=== PATIENT | female | born 1960 | race Caucasian/White ===

== ENCOUNTER → 2018-03-14 10:07 | Outpatient (POV) | payer MEDICARE, SELFPAY | PROVIDERS: Family Provider Emergency Medicine; PCP Emergency Medicine; Visit Provider Nurse Practitioner Acute Care | DX: Z00.00 Encounter for general adult medical examination without abnormal findings (principal) ==

== ENCOUNTER → 2018-04-05 16:21 | Outpatient (CLI) | payer MEDICARE, MEDICAID, SELFPAY ==
[2018-04-05 16:27] LABS: Adenovirus F 40/41, stool Not Detected (NotDetected); Astrovirus Not Detected (NotDetected); Campylobacter Not Detected (NotDetected); Clostridium Difficile A/B, PCR Not Detected (NotDetected); Cryptosporidium Not Detected (NotDetected); Cyclospora Cayetanesis Not Detected (NotDetected); Entamoeba histolytica Not Detected (NotDetected); Enteroaggregative E coli Not Detected (NotDetected); Enteropathogenic E coli Not Detected (NotDetected); Enterotoxigenic E coli Not Detected (NotDetected); Giardia lamblia Not Detected (NotDetected); Norovirus Not Detected (NotDetected); Plesimonas Shigalloides, PCR Not Detected (NotDetected); Rotavirus A Not Detected (NotDetected); Salmonella, PCR Not Detected (NotDetected); Sapovirus Not Detected (NotDetected); Shiga-like toxin E coli Not Detected (NotDetected); Shigella Enterovasive E coli Not Detected (NotDetected); Vibrio Cholerae Not Detected (NotDetected); Vibrio, PCR Not Detected (NotDetected); Yersinia Entercolitica, PCR Not Detected (NotDetected)
[2018-04-09 05:21] LABS: H. pylori Stool Ag, EIA Negative (Negative)
== END ==
PROVIDERS: Visit Provider Nurse Practitioner Acute Care
DX: R19.7 Diarrhea, unspecified (principal)
CPT/HCPCS: 87338; 87507

== ENCOUNTER → 2018-04-19 10:47 | Outpatient (CLI) | payer MEDICARE, MEDICAID, SELFPAY ==
--- NOTE | 2018-04-19 | US_ITS ---
US Arterial Ankle Brachial Ind History: Current smoker, hyperlipidemia, bilateral rest pain, bilateral claudication ORDERING PHYSICIAN: Andrez Hernanedz MD PATIENT AGE: 58 years TECHNIQUE: Segmental pressures obtained of both right and left leg. These are compared to brachial blood pressure to yield index at each level sampled including summary BERT. The data sheets from the procedure are available in PACS FINDINGS Rest study only performed today No prior studies available for comparison. Blood pressures reported are in millimeters mercury. RIGHT LEG BERT = 1.0. RIGHT LEG TBI=0.8 Brachial BP: 122 Thigh BP: 115 Calf BP: 134 Ankle PT: 129 Ankle DP : 119 Digit =105 LEFT LEG BERT = 1.0 LEFT LEG TBI= 0.8 Brachial BPD: 128 Thigh BP: 144 Calf BP: 138 Ankle PT:130 Ankle DP: 110 Digit = 103 Pulses and waveforms: Normal IMPRESSION: The ABIs and TBIs as reported above are within normal limits. Waveforms and pulses are also unremarkable.
--- NOTE | 2018-04-19 10:49 | NM_ITS ---
CARDIOLITE SPECT MYOCARDIAL PERFUSION SCAN, REST AND STRESS: EXERCISE STRESS [facility] REVIEW QGS EF AND WALL MOTION EVALUATION: QPS - PERFUSION EVALUATION HISTORY: chest pain ..soa DOSE: 10.21 mCi technetium 99m mibi intravenously at rest followed by 32.3 mCi technetium 99m mibi following the intravenous ministration of 0.4 mg of Lexiscan. Resting blood pressure is 121/71. Stress blood pressure 125/74. FINDINGS: Ejection fraction is calculated to be 62%. Stress images reveal decreased activity in the anterior apical wall. Rest images reveal significantly improved activity. Gated images calculated ejection fraction of 62% with normal wall motion. IMPRESSION: Abnormal high risk Myoview with reversible ischemia in the anterior apical wall. Normal ejection fraction and normal wall motion
--- NOTE | 2018-04-19 12:32 | HMH.ITSHM ---
CINDY HANNAH LIPITOR KEVIN CRISOSTOMO
== END ==
PROVIDERS: Family Provider Emergency Medicine; PCP Emergency Medicine; Visit Provider Internal Medicine
DX: I25.118 Atherosclerotic heart disease of native coronary artery with other forms of angina pectoris (principal); I73.9 Peripheral vascular disease, unspecified; M79.604 Pain in right leg; M79.605 Pain in left leg; R07.89 Other chest pain; R06.09 Other forms of dyspnea; F17.200 Nicotine dependence, unspecified, uncomplicated
CPT/HCPCS: 78452; 93017; 93922; A9502; J2785

== ENCOUNTER → 2018-12-12 13:59 | Outpatient (CLI) | payer MEDICARE, MEDICAID, SELFPAY ==
[2018-12-12 14:46] LABS: Alanine Aminotransferase 31 U/L (12-78); Albumin/Globulin Ratio 1.1 (1.1-1.8); Alkaline Phosphatase 120 U/L (46-116); Anion Gap 15.7 mEq/L (5-15); Aspartate Amino Transferase 19 U/L (15-37); Bilirubin,Total 0.3 mg/dL (0.2-1.0); Blood Urea Nitrogen 10 mg/dL (7-18); Carbon Dioxide 25 mmol/L (21.0-32.0); Chloride 101 mmol/L (98-107); Cholesterol 273 mg/dL (140-200); Creatinine,Serum 0.97 mg/dL (0.55-1.02); Estimated Glomerular Filt Rate 59 ml/min (>60); Free T4 (Free Thyroxine) 0.97 ng/dl (0.76-1.46); GFR (African American) 71 ML/MIN (>60); Globulin 3.5 gm/dl (1.3-3.2); Glucose 96 mg/dL (74-106); HDL Cholesterol 39 mg/dL (29-89); LDL Cholesterol 174 mg/dL (0-130); Potassium 3.7 mmoL/L (3.5-5.1); Sodium 138 mmol/L (136-145); Total Protein,Serum 7.5 gm/dL (6.4-8.2); Triglycerides 298 mg/dL (30-200); VLDL Cholesterol 60 mg/dL (0-40)
== END ==
PROVIDERS: Visit Provider Emergency Medicine
DX: I25.10 Atherosclerotic heart disease of native coronary artery without angina pectoris (principal); Z79.899 Other long term (current) drug therapy
CPT/HCPCS: 80053; 80061; 84439; 84443

== ENCOUNTER → 2019-03-21 15:20 | Outpatient (CLI) | payer MEDICARE, MEDICAID, SELFPAY ==
[2019-03-21 17:49] LABS: Anion Gap 17.4 mEq/L (5-15); Blood Urea Nitrogen 9 mg/dL (7-18); Calcium 9.5 mg/dL (8.5-10.1); Carbon Dioxide 27 mmol/L (21.0-32.0); Chloride 102 mmol/L (98-107); Creatinine,Serum 0.97 mg/dL (0.55-1.02); Estimated Glomerular Filt Rate 59 ml/min (>60); GFR (African American) 71 ML/MIN (>60); Glucose 80 mg/dL (74-106); Potassium 4.4 mmoL/L (3.5-5.1); Sodium 142 mmol/L (136-145)
== END ==
PROVIDERS: Visit Provider Physician Assistant
DX: E78.2 Mixed hyperlipidemia (principal); G47.33 Obstructive sleep apnea (adult) (pediatric); I11.9 Hypertensive heart disease without heart failure; I25.118 Atherosclerotic heart disease of native coronary artery with other forms of angina pectoris; I73.9 Peripheral vascular disease, unspecified; J44.9 Chronic obstructive pulmonary disease, unspecified; R06.00 Dyspnea, unspecified; R53.83 Other fatigue; Z72.0 Tobacco use
CPT/HCPCS: 36415; 80048; 83880

== ENCOUNTER → 2019-03-28 15:14 | Outpatient (CLI) | payer MEDICARE, MEDICAID, SELFPAY ==
--- NOTE | 2019-03-28 15:18 | XR_ITS ---
XR chest 2V HISTORY: Chest pain, palpitation ITS.REASON: x ORDERING PHYSICIAN: Saba Dooley APRN PATIENT AGE: 59 years COMPARISON: None FINDINGS: The cardiomediastinal silhouette and pulmonary vascularity are within normal limits. The lungs are clear without infiltrates, suspicious nodules, or pleural effusions. No acute bony abnormalities. Epigastric clips are noted IMPRESSION: No change with no acute finding
== END ==
PROVIDERS: PCP Emergency Medicine; Visit Provider Nurse Practitioner Family
DX: I25.118 Atherosclerotic heart disease of native coronary artery with other forms of angina pectoris (principal); J44.9 Chronic obstructive pulmonary disease, unspecified; R06.02 Shortness of breath; Z72.0 Tobacco use
CPT/HCPCS: 71046

== ENCOUNTER → 2019-04-03 11:04 | Outpatient (CLI) | payer MEDICARE, MEDICAID, SELFPAY ==
--- NOTE | 2019-04-03 11:04 | CA_ITS ---
PROCEDURE: 2-D M-mode and color Doppler study INDICATIONS FOR THE TEST: Chest pain COPD+ Heart Murmur Tobacco Smoking+ Palpitations Fatigue Syncope Edema Hypertension+Diabetes Mellitus Rheumatic Fever SOB+LAMAR Obesity Hyperlipidemia+ Family History HD Additional History CAD, O2 @ NIGHT TDS-OVERLAYING LUNG PATIENT INFORMATION HEIGHT: 62 WEIGHT:175 GENDER: Female B/P:127/75 2-D/M-MODE INTERPRETATION: 2-D MEASUREMENTS OBSERVED VALUES IN CMS Right Ventricular Dimension (RVDd) 2.1 Interventricular Septum (Thickness)(IVsd) 1.1 Left Ventricular Internal Dimensions(LVIDd) 4.6 Left Ventricular Posterior Wall (Thickness)(LVPWd) 0.9 Aortic Root 2.6 Aortic Cusp Separation 1.4 Left Atrial Dimensions (LAD) 3.3 2D 1. Left atrium is mildly enlarged, left ventricle is normal size, mild concentric left ventricular hypertrophy, visually estimated ejection fraction 55% with no regional wall motion abnormality. 2. The right atrium and the ventricular mildly enlarged with normal contractility. 3. The aortic valve is minimally thickened and fibrosed. 4. The mitral and tricuspid valvular grossly normal. 5. The pulmonic valve is poorly visualized. 6. No significant pericardial effusion noted. DOPPLER INTERROGATION: Doppler interrogation of the aortic, mitral and tricuspid valvular presence of mild mitral and tricuspid regurgitation, tricuspid regurgitation jet velocity is inadequate for calculation of the right ventricular systolic pressure, grade 1 diastolic dysfunction seen with tissue Doppler evidence of raised left atrial pressure. Inferior vena cava is mildly dilated without significant inspiratory collapse. CONCLUSION: 1. Mildly enlarged left atrium, normal left ventricular size, mild concentric left ventricular hypertrophy, visually estimated ejection fraction 55% with no regional wall motion abnormality, grade 1 diastolic dysfunction seen with tissue Doppler evidence of raised left atrial pressure. 2. Mildly enlarged right ventricle with normal contractility. 3. Mild mitral and tricuspid regurgitation, tricuspid regurgitation jet velocity is inadequate for calculation of the right ventricular systolic pressure, inferior vena cava is mildly dilated without significant inspiratory collapse. 4. No significant pericardial effusion noted.
[2019-04-03 12:07] VITALS: PULSE 65
[2019-04-03 12:08] VITALS: PULSE 65
== END ==
PROVIDERS: PCP Emergency Medicine; Visit Provider Nurse Practitioner Family
DX: I25.10 Atherosclerotic heart disease of native coronary artery without angina pectoris (principal); R06.02 Shortness of breath
CPT/HCPCS: 93306; 94060; 94640

== ENCOUNTER → 2019-05-22 20:19 | Outpatient (CLI) | payer MEDICARE, MEDICAID, SELFPAY | PROVIDERS: PCP Emergency Medicine; Visit Provider Specialist | DX: G47.30 Sleep apnea, unspecified (principal); I10 Essential (primary) hypertension; R51 Headache; R06.83 Snoring; G47.00 Insomnia, unspecified | CPT/HCPCS: 95810 ==

== ENCOUNTER → 2019-09-01 15:46 | Outpatient (CLI) | payer MEDICARE, MEDICAID, SELFPAY ==
[2019-09-01 18:24] LABS: Alanine Aminotransferase 26 U/L (12-78); Alkaline Phosphatase 100 U/L (46-116); Aspartate Amino Transferase 15 U/L (15-37); Bilirubin,Direct 0.1 mg/dL (0.0-0.2); Bilirubin,Indirect 0.1 mg/dL (0.0-0.9); Bilirubin,Total 0.2 mg/dL (0.2-1.0); Cholesterol 209 mg/dL (140-200); HDL Cholesterol 42 mg/dL (29-89); LDL Cholesterol 120 mg/dL (0-130); Total Protein,Serum 7.2 gm/dL (6.4-8.2); Triglycerides 235 mg/dL (30-200); VLDL Cholesterol 47 mg/dL (0-40)
== END ==
PROVIDERS: Visit Provider Urology
DX: E78.2 Mixed hyperlipidemia (principal); I11.9 Hypertensive heart disease without heart failure; I25.118 Atherosclerotic heart disease of native coronary artery with other forms of angina pectoris
CPT/HCPCS: 36415; 80061; 80076

== ENCOUNTER 2020-04-04 15:42 | Emergency (ER) | payer MEDICARE, MEDICAID, SELFPAY ==
[2020-04-04 16:10] VITALS: BP 117/75; PULSE 94; RESP 18; TEMP 36.9; O2SAT 100; BMI 32.9
--- NOTE | 2020-04-04 16:34 | HMH.EDUTC ---
[place] Disposition Clinical Impression: Gastroenteritis Diarrhea Qualifiers: Diarrhea type: unspecified type Qualified Code(s): R19.7 - Diarrhea, unspecified Disposition: Home, Self-Care Condition on Discharge: Good Instructions: Diarrhea, Viral Gastroenteritis Additional Instructions: Drink plenty of fluids. Take tylenol or ibuprofen for pain or fever. Take the medications as directed. Follow up with your regular doctor. GO TO THE ER FOR ANY WORSENING SYMPTOMS Return a stool sample if your diarrhea continues for the next 24 hours. Prescriptions: Ondansetron [Zofran 4mg ODT] 4 mg PO Q8HP PRN #10 tab.rapdis PRN Reason: Nausea Transmission Status: Received by [facility] Referrals: Dante Santillan MD [Primary Care Provider] - Time of Disposition: 16:36 Medical Decision Making - Medical Records Medical records reviewed: No: I reviewed the patient's medical records. - Marco A Inquiry Pt receiving controlled substance: No Vital Signs: 04/04/20 16:10 04/04/20 16:53 Temperature 98.4 F 98.4 F Temperature Source Oral Pulse Rate 94 H Pulse Rate [Left Radial] 94 H Respiratory Rate 18 18 Blood Pressure 117/76 Blood Pressure [Left Arm] 117/75 Blood Pressure Mean [Left Arm] 89 Blood Pressure Source [Left Arm] Automatic Cuff Blood Pressure Position [Left Arm] Sitting 02 Sat by Pulse Oximetry 100 Oxygen Delivery Method Room Air [place] HPI - General Stated complaint: Nausa and Diarrhea Time Seen by Provider: 04/04/20 16:34 Mode of Arrival: Ambulatory Source of Information: Patient Limitations: No Limitations Description of Symptoms (Recalled from Triage Doc. by RN): PT C/O NAUSEA AND DIARRHEA HEENT Symptoms (Recalled from RN notes): No Resp Symptoms (Recalled from RN notes): No Skin Symptoms (Recalled from RN notes): No MS Symptoms (Recalled from RN notes): No Functional Status (Recalled from RN notes): N/A - History of Present Illness Provider Complaint: She c/o nausea and diarrhea for the past 3 days approx. She denies vomiting, but she states that she has came close. She denies any blood in her stool or diarrhea. - Related Data Home Medications Medication Instructions Recorded Confirmed brimonidine 0.1 % eye drops OPHTHALMIC 01/31/20 02/06/20 Previous Rx's Medication Instructions Recorded nitroglycerin 0.4 mg sublingual 0.4 mg SUBLINGUAL Q5-15M PRN #30 06/06/18 tablet tab albuterol sulfate 90 mcg/actuation 2 puff INHALATION Q4H PRN #8.5 g 09/07/18 aerosol inhaler budesonide-formoterol HFA 160 2 puff INHALATION BID #10.2 g 06/12/19 mcg-4.5 mcg/actuation aerosol inhaler furosemide 40 mg tablet 40 mg PO DAILY #90 tab 07/13/19 atorvastatin 80 mg tablet 80 mg PO QHS #90 tab 09/04/19 benzonatate 100 mg capsule 100 mg PO TID PRN #30 cap 01/31/20 levofloxacin 500 mg tablet 500 mg PO DAILY #7 tab 01/31/20 zolpidem 10 mg tablet 10 mg PO QHS PRN #30 tab 01/31/20 uefiznbpmv-xzwsbespctcak-zirpyexc 1 cap PO Q4H PRN #40 cap 02/02/20 50 mg-300 mg-40 mg capsule hydrocodone 5 mg-acetaminophen 325 1 tab PO BID PRN #45 tab 02/06/20 mg tablet varenicline 0.5 mg (11)-1 mg (42) See Rx Instructions PO PER PKG DIR 02/06/20 tablets in a dose pack #53 tab sertraline 100 mg tablet See Rx Instructions .ROUTE 02/22/20 .COMPLEX #90 tab Ondansetron [Zofran 4mg ODT] 4 mg PO Q8HP PRN #10 tab.rapdis 04/04/20 metoclopramide HCl 10 mg tablet See Rx Instructions .ROUTE 04/04/20 .COMPLEX #90 tab Allergies Allergy/AdvReac Type Severity Reaction Status Date / Time No Known Allergies Allergy Verified 02/06/20 13:48 - Worker's Comp Is this a Worker's Comp case?: No [facility] History - Hepatitis A Screen Drug use history?: No High risk sexual behaviors?: No History of sexually transmitted infection?: No Currently employed?: No Childcare worker?: No Do you have indoor plumbing?: Yes Do you have electricity?: Yes Attestation statement:: This patient
[2020-04-04 16:53] VITALS: BP 117/76; PULSE 94; RESP 18; TEMP 36.9; O2SAT 100
== END 2020-04-04 16:53 | disposition home or self-care (01) ==
PROVIDERS: Emergency Provider Nurse Practitioner Family; PCP Emergency Medicine
DX: K52.9 Noninfective gastroenteritis and colitis, unspecified (principal); J44.9 Chronic obstructive pulmonary disease, unspecified; I25.10 Atherosclerotic heart disease of native coronary artery without angina pectoris; K21.9 Gastro-esophageal reflux disease without esophagitis; I10 Essential (primary) hypertension; E78.5 Hyperlipidemia, unspecified; Z79.899 Other long term (current) drug therapy; F17.210 Nicotine dependence, cigarettes, uncomplicated; Z90.49 Acquired absence of other specified parts of digestive tract; Z90.79 Acquired absence of other genital organ(s)
CPT/HCPCS: G0463; 99201

== ENCOUNTER → 2020-05-06 16:47 | Outpatient (CLI) | payer MEDICARE, MEDICAID, SELFPAY ==
--- NOTE | 2020-05-06 16:47 | MM_ITS ---
PROCEDURE: MM DIG SCREENING MAMM BI W/CAD Digital Breast Tomosynthesis Included CLINICAL INDICATION: screening There is no personal or family history of breast cancer. COMPARISON: [facility] DIG MAMM-SCREEN JASS from 02/22/2015 [facility] DIG MAMM-SCREEN JASS from 06/01/2016 [facility] DIG MAMM-SCREEN JASS W/CAD from 06/09/2017 TECHNIQUE: Standard CC and MLO images and 3D Tomosynthesis was obtained. R2 CAD reviewed. FINDINGS: The breasts are composed primarily of fat with minimal scattered fibroglandular densities in each breast. Findings of bilateral and symmetrical. There is no suspicious lesion in either breast and no suspicious microcalcifications. IMPRESSION: Fatty type breast parenchyma with no suspicious lesions seen BI-RAD Category: 1 Negative FOLLOW-UP: 1YR 1 Year Follow-up (A letter has been sent to the patient regarding results of the study.) Dictated by: Dr. Geovanni Carrillo MD 05/08/2020 11:[address] Geovanni Carrillo MD in [place] 05/08/2020 11:22
== END ==
PROVIDERS: PCP Emergency Medicine; Visit Provider Emergency Medicine
DX: Z12.31 Encounter for screening mammogram for malignant neoplasm of breast (principal)
CPT/HCPCS: 77063; 77067

== ENCOUNTER → 2020-07-03 12:33 | Outpatient (CLI) | payer MEDICARE, MEDICAID, SELFPAY ==
--- NOTE | 2020-07-03 12:36 | XR_ITS ---
PROCEDURE: XR CHEST 2V CLINICAL HISTORY: dyspnea Smoker COMPARISON: CR CXR CHEST(2 VIEWS-NOT PORTABLE) from 12/21/2014 CR CXR CHEST(2 VIEWS-NOT PORTABLE) from 12/27/2014 CR CXR CHEST(2 VIEWS-NOT PORTABLE) from 06/09/2017 FINDINGS: The cardiomediastinal silhouette and pulmonary vascularity are within normal limits. The lungs are clear without infiltrates, suspicious nodules, or pleural effusions. No acute bony abnormalities. IMPRESSION: No acute findings. Dictated b George Ledesma MD 07/03/2020 13:34 George Ledesma MD in [place] 07/03/2020 13:34
[2020-07-03 12:46] LABS: Microscopic, Urine URINE MICROSCOPIC (MICROSCOPIC)
[2020-07-03 13:01] LABS: Appearance,Urine CLEAR (Clear); Basophils # 0.1 K/mm3 (0-0.2); Basophils % 0.9 % (0.1-2.0); Bilirubin,Urine Negative (Negative); Blood, Urine Negative (Negative); Color,Urine YELLOW (Yellow); Eosinophils # 0.2 K/mm3 (0.0-0.4); Eosinophils % 2.4 % (0.1-12.0); Glucose,Urine (UA) Negative (Negative); Hematocrit 41.5 % (37.0-47.0); Hemoglobin 14.4 g/dL (12.2-16.2); Ketones,Urine Negative (Negative); Leukocyte Esterase,Urine Negative (Negative); Lymphocytes # 2.7 K/mm3 (0.7-4.5); Lymphocytes % 29.7 % (10-50); Mean Corpuscular HGB Conc 34.7 g/dL (31.8-35.4); Mean Corpuscular Volume 83.5 fl (81-99); Mean Platelet Volume 7.5 fl (7.4-10.4); Monocytes # 0.5 K/mm3 (0.1-1.0); Monocytes % 5.1 % (1.7-9.3); Neutrophils # 5.6 K/mm3 (1.8-7.8); Nitrate,Urine Negative (Negative); PH,Urine 6.5 (5.0-8.5); Platelet Count 348 K/mm3 (142-424); Protein,Urine Negative (Negative); Red Blood Count 4.97 M/mm3 (4.20-5.40); Red Cell Distribution Width 14.4 % (11.5-17.5); Urobilinogen,Urine 0.2 EU/dl (0.2); White Blood Count 9.1 K/mm3 (4.8-10.8)
[2020-07-03 13:17] LABS: Bacteria,Urine Trace /lpf
[2020-07-03 13:33] LABS: Chloride 104 mmol/L (98-107); Sodium 140 mmol/L (136-145)
[2020-07-03 13:34] LABS: Potassium 4.8 mmoL/L (3.5-5.1)
[2020-07-03 13:36] LABS: Alanine Aminotransferase 26 U/L (12-78); Albumin Level 4.1 g/dl (3.5-5.0); Alkaline Phosphatase 90 U/L (38-126); Anion Gap 12.8 mEq/L (5-15); Aspartate Amino Transferase 25 U/L (14-36); Bilirubin,Direct 0.1 mg/dl (0.0-0.4); Bilirubin,Indirect 0.3 mg/dL (0.0-0.9); Bilirubin,Total 0.4 mg/dl (0.2-1.3); Bilirubin,Unconjugated 0.3 mg/dL (0.0-1.1); Blood Urea Nitrogen 12 mg/dl (7-17); Calcium 9.7 mg/dl (8.4-10.2); Carbon Dioxide 28 mmol/L (22.0-30.0); Cholesterol 152 mg/dl (140-200); Estimated Glomerular Filt Rate 73 ml/min (>60); GFR (African American) 88 ML/MIN (>60); Glucose 106 mg/dl (74-100); Total Protein,Serum 6.7 g/dl (6.3-8.2); Triglycerides 240 mg/dl (30-150); VLDL Cholesterol 48 mg/dL (0-40)
[2020-07-03 13:46] LABS: NT Pro Brain Natriuretic Pep. 101 pg/mL (0-125)
[2020-07-03 13:48] LABS: Direct LDL Cholesterol 84.22 mg/dL (100-129)
[2020-07-03 13:53] LABS: Free T4 (Free Thyroxine) 0.71 ng/dl (0.78-2.19)
[2020-07-03 14:08] LABS: Thyroid Stimulating Hormone 3.29 uIU/mL (0.465-4.68)
[2020-07-03 19:53] LABS: Chol/HDL Ratio 3.2 (1-3.5); HDL Cholesterol 48 mg/dl (40-60)
== END ==
PROVIDERS: PCP Emergency Medicine; Visit Provider Internal Medicine
DX: E78.2 Mixed hyperlipidemia (principal); G47.33 Obstructive sleep apnea (adult) (pediatric); I11.9 Hypertensive heart disease without heart failure; I25.118 Atherosclerotic heart disease of native coronary artery with other forms of angina pectoris; I73.9 Peripheral vascular disease, unspecified; J44.9 Chronic obstructive pulmonary disease, unspecified; R06.00 Dyspnea, unspecified; R09.89 Other specified symptoms and signs involving the circulatory and respiratory systems; R10.9 Unspecified abdominal pain; R19.00 Intra-abdominal and pelvic swelling, mass and lump, unspecified site; R53.83 Other fatigue; R60.0 Localized edema; Z72.0 Tobacco use
CPT/HCPCS: 36415; 71046; 80048; 80061; 80076; 81001; 83880; 84439; 84443; 85025

== ENCOUNTER → 2020-07-09 07:50 | Outpatient (CLI) | payer MEDICARE, MEDICAID, SELFPAY ==
--- NOTE | 2020-07-09 07:51 | CA_ITS ---
APPROVED REPORT EXAM: Comprehensive 2D, Doppler, and color-flow Echocardiogram Relief Driller: Tiny Kirby CRT Ht: 5 ft 2 in Wt: 190lbs BSA: 1.87 BP: 148/71 mmHg Indications: COPD, Hyperlipidemia, Hypertension/HDD, BERTRAM, PAD, Smoker, BERTRAM 2D Dimensions LVOT 1.50 cm (M/F) 1.5-2.5 M-Mode Dimensions RVDd 1.89 cm (0.9-2.6) LVDd 5.27 cm (3.5-5.7) LVDs 3.77 cm (3.5-5.7) IVSd 1.10 cm (0.6-1.1) PWd 0.53 cm (0.6-1.1) EF (Teich) 54.50% FS 28.50% EDV (Teich) 133.60 mL ESV (Teich) 60.80 mL LV Diastology E/A Ratio 0.70 Mitral Valve MV A Velocity 84.00 (40-130 cm/s) Left Ventricle Left atrium is mildly enlarged, left ventricle is normal size, mild concentric left ventricular hypertrophy, visually estimated ejection fraction 55% with no regional wall motion abnormality, grade 1 diastolic dysfunction seen without tissue Doppler evidence of raise left atrial pressure. Right Ventricle Right atrium and left ventricle are mildly enlarged with normal contractility. Aortic Valve Aortic valve is minimally thickened, there is no aortic stenosis or aortic insufficiency. Mitral Valve Mitral valve is grossly normal. There is mild mitral regurgitation. Tricuspid Valve Tricuspid valve is grossly normal, there is mild tricuspid regurgitation, calculated right ventricular systolic pressure is 37 mmHg. Pulmonic Valve Pulmonic valve is poorly visualized. Great Vessels Aortic root is normal size. Pericardium No significant pericardial effusion noted Conclusion 1. Mild biatrial enlargement, normal left ventricular size, mild concentric left ventricular hypertrophy, visually estimated ejection fraction 55% with no regional wall motion abnormality, grade 1 diastolic dysfunction seen without tissue Doppler evidence of raise left atrial pressure. 2. Mildly enlarged right ventricle with normal contractility. 3. Mild mitral and tricuspid regurgitation, calculated right ventricular systolic pressure is 37 mmHg. 4. No significant pericardial effusion noted. Electronically signed by : Cj Mathews, 07/10/2020 05:55:37
--- NOTE | 2020-07-09 08:34 | US_ITS ---
PROCEDURE: US ABDOMEN COMPLETE CLINICAL INDICATION: abd pain/swelling COMPARISON: No exams were available for comparison FINDINGS: PANCREAS: Unremarkable. No obvious mass or abnormal fluid collection. No ductal dilatation, portions of the body and tail are obscured by bowel gas. LIVER: No focal liver lesions demonstrated. There is overall increased and somewhat coarsened appearing echogenicity consistent with diffuse fatty infiltration.. No intrahepatic biliary ductal dilatation evident. There is appropriate direction of blood flow within a non dilated portal vein RIGHT KIDNEY: Unremarkable. Normal size and echogenicity. No hydronephrosis LEFT KIDNEY: Unremarkable. Normal size and echogenicity. No hydronephrosis GALLBLADDER: Post cholecystectomy, the common bile duct measures 7 mm. AORTA: No evidence of aneurysmal dilatation. SPLEEN: Unremarkable. Normal size and echogenicity ASCITES: None demonstrated. IMPRESSION: Diffuse hepatic steatosis, portions of the pancreas poorly seen, no other abnormality noted post cholecystectomy Dictated by: Dr. Geovanni Carrillo MD 07/09/2020 14:04 Dr. Geovanni Carrillo MD in [place] 07/09/2020 14:04
== END ==
PROVIDERS: PCP Emergency Medicine; Visit Provider Internal Medicine
DX: E78.2 Mixed hyperlipidemia (principal); G47.33 Obstructive sleep apnea (adult) (pediatric); I11.9 Hypertensive heart disease without heart failure; I25.118 Atherosclerotic heart disease of native coronary artery with other forms of angina pectoris; I73.9 Peripheral vascular disease, unspecified; J44.9 Chronic obstructive pulmonary disease, unspecified; R06.00 Dyspnea, unspecified; R09.89 Other specified symptoms and signs involving the circulatory and respiratory systems; R10.9 Unspecified abdominal pain; R19.00 Intra-abdominal and pelvic swelling, mass and lump, unspecified site; R53.83 Other fatigue; R60.0 Localized edema; Z72.0 Tobacco use
CPT/HCPCS: 76700; 93306; 94060; 94726; 94729

== ENCOUNTER 2020-07-16 09:35 | Day surgery (SDC) | payer MEDICARE, MEDICAID, SELFPAY ==
[2020-07-16] VITALS (12 sets, daily range): BP systolic 111–145; BP diastolic 63–87; PULSE 60–82; RESP 16–20; TEMP 36.5–36.6; O2SAT 82–99; BMI 34.2
[2020-07-16 10:05] LABS: Basophils # 0.1 K/mm3 (0-0.2); Basophils % 0.8 % (0.1-2.0); Eosinophils # 0.3 K/mm3 (0.0-0.4); Eosinophils % 2.4 % (0.1-12.0); Hemoglobin 14.5 g/dL (12.2-16.2); Lymphocytes # 3.4 K/mm3 (0.7-4.5); Lymphocytes % 26.9 % (10-50); Mean Corpuscular HGB Conc 34.5 g/dL (31.8-35.4); Mean Corpuscular Hemoglobin 29.1 pg (27.0-31.2); Mean Corpuscular Volume 84.2 fl (81-99); Mean Platelet Volume 7.3 fl (7.4-10.4); Monocytes # 0.6 K/mm3 (0.1-1.0); Monocytes % 4.7 % (1.7-9.3); Neutrophils # 8.3 K/mm3 (1.8-7.8); Neutrophils % 65.3 % (37.0-80.0); Platelet Count 400 K/mm3 (142-424); Red Blood Count 4.99 M/mm3 (4.20-5.40); Red Cell Distribution Width 14.4 % (11.5-17.5); White Blood Count 12.7 K/mm3 (4.8-10.8)
[2020-07-16 10:09] LABS: Chloride 104 mmol/L (98-107); Potassium 4.1 mmoL/L (3.5-5.1); Sodium 138 mmol/L (136-145)
[2020-07-16 10:12] LABS: Anion Gap 12.1 mEq/L (5-15); Blood Urea Nitrogen 12 mg/dl (7-17); Calcium 9.4 mg/dl (8.4-10.2); Carbon Dioxide 26 mmol/L (22.0-30.0); Creatinine Clearance Estimated 78 mL/min (50-200); Estimated Glomerular Filt Rate 73 ml/min (>60); GFR (African American) 88 ML/MIN (>60); Glucose 114 mg/dl (74-100)
[2020-07-16 10:50] LABS: Coronavirus 19 IgG Antibody Positive (Negative); Coronavirus 19 IgM Antibody Positive (Negative)
--- NOTE | 2020-07-16 11:00 | IR_ITS ---
APPROVED REPORT Patient Location: Outpatient PROCEDURES Right heart catheterization left heart catheterization Left ventriculogram Selective coronary angiogram Drug-eluting stent deployment to the proximal mid and distal right coronary artery in a contiguous manner using 4 overlapping drug-eluting stents INDICATION Angina pectoris, Class III-IV congestive heart failure, Pulmonary hypertension, Coronary artery disease Informed consent was obtained prior to the procedure. COMPLICATIONS none Estimated Blood Loss: less than 10 mls TECHNIQUE One percent lidocaine was used to anesthetize the right anterior aspect of the right wrist. The right radial artery was accessed via the Seldinger technique and a 6 Greek hydrophilic sheath was placed in the right radial artery. Following this one percent lidocaine was used to anesthetize the right anterior aspect of the right neck. The right internal jugular vein was accessed via the Seldinger technique and a 7 Greek sheath was placed in the right internal jugular vein. Following this an arterial cocktail was administered using 5000U heparin, 2.5 mg verapamil, 1mg Lidocaine and 800mcg nitroglycerin into the right radial sheath. A trap catheter was used to perform left heart catheterization left ventriculogram and selective coronary angiography while a Pacific-Sebastian catheter was used to perform right heart catheterization. Saturations were obtained in the pulmonary artery and right atrium. At the end of the diagnostic angiogram therapeutic heparin was administered giving a therapeutic ACT. And I Janee right guide catheter was used to intubate the right coronary artery and a Choice PT wire was placed distally. A 4 mm x 18 mm resolute wallcae stent was deployed at 18 star reducing the stenosis. Proximal to this was an edge stenosis as well as a distal stenosis which were both angiographically unacceptable. Because there was diffuse moderate disease throughout the right coronary artery I felt as though it would be impossible to get a landing zone from normal to normal therefore a 4 mm x 38 mm resolute wallace stent was placed distal to the first stent yet still overlapping it and deployed at 14 star. After deploying this the angiographic results were also unsatisfactory distally. The stent landed right at a moderate atheromatous plaque which would increase the likelihood for head stenosis. Because of this a 4 mm x 26 mm resolute wallace stent was then placed distal to the stent and deployed at 14 star. Proximally there were 2 additional stenoses in the very proximal segment of the right coronary artery and which a 4 mm x 12 mm resolute wallace drug-eluting stent was deployed in at 20 star reducing the stenosis to 0%. All stents were overlapping in a contiguous manner. At the end of the procedure there was excellent patency of the right coronary artery with excellent SHABBIR-3 flow down the vessel before and after the procedure with no encroachment upon any of the side branches. At the end of the procedure the apparatus was removed the sheath was removed good hemostasis was achieved using TR banding patient was transferred to the postop holding area stable condition ANGIOGRAPHIC RESULTS The left main artery Normal The left anterior descending artery Is proximally normal and then has 30% mid vessel stenosis with mild diffuse 20% stenoses throughout its tortuous moderate and distal course The circumflex artery Is nondominant and has proximal 20% stenosis with luminal irregularities of 10% throughout its entire course The right coronary artery Is a large dominant vessel and has a proximal eccentric at least 70% stenosis followed by additional 40 to 50% mid vessel stenoses followed by an additional 40
--- NOTE | 2020-07-16 11:20 | SUR.PHASEII ---
notified primary MD of results of covid testing results
[2020-07-16 12:00] LABS: CATHL Arterial O2 SAT 70 % (90-100); CATHL Venous O2 SAT 68 % (75-80)
[2020-07-16 12:01] LABS: CATHL Activated Clotting Time 293 SEC (74-125)
[2020-07-16 12:02] LABS: CATHL Activated Clotting Time 395 SEC (74-125)
--- NOTE | 2020-07-16 15:18 | HMH.PHACLD ---
No Coelho has received discharge medication counseling on the following medications: BRILINTA 90 MG BID, ASPIRIN 81 MG DAILY, ATORVASTATIN 40 MG HS, RAMIPRIL 2.5 MG DAILY, AND BISOPROLOL 5 MG DAILY.
[2020-07-18 16:11] LABS: Covid-19 Nasal PCR Sendout Lex NOT DETECTED
== END 2020-07-16 15:56 | disposition home or self-care (01) ==
LOC: CATHLAB 09:36
PROVIDERS: PCP Emergency Medicine; Visit Provider Internal Medicine
DX: E78.2 Mixed hyperlipidemia (principal); G47.33 Obstructive sleep apnea (adult) (pediatric); I11.9 Hypertensive heart disease without heart failure; I25.118 Atherosclerotic heart disease of native coronary artery with other forms of angina pectoris; I27.20 Pulmonary hypertension, unspecified; J44.9 Chronic obstructive pulmonary disease, unspecified; Z72.0 Tobacco use; I70.203 Unspecified atherosclerosis of native arteries of extremities, bilateral legs; Z79.899 Other long term (current) drug therapy
CPT/HCPCS: 80048; 82810; 85025; 85347; 86328; 92928; 93460; 99152; 99153; C1725; C1769; C1876; C1894; C9600; J1644; Q9967; U0004

== ENCOUNTER → 2020-08-06 14:04 | Outpatient (CLI) | payer MEDICARE, MEDICAID, SELFPAY ==
--- NOTE | 2020-08-06 14:04 | CT_ITS ---
PROCEDURE: CT SOFT TISSUE NECK W CON CLINICAL HISTORY: poss left parotid tumor sore throat x 2-3 months ? left parotid tumor no palpable areas 75ml optiray 350 no prior COMPARISON: No exams were available for comparison TECHNIQUE: Oral Contrast: None IV Contrast: None Axial images obtained with sagittal and coronal reformats. All CT scans at the facility use one or more dose reduction, viz: automated exposure control, ma/kV adjustment per patient size (including targeted exams where dose is matched to indication, i.e. head), or iterative reconstruction technique. FINDINGS: There is a slightly hyperdense nodule within the superficial lobe of the parotid gland on the left inferiorly. This measures 12 by 10 mm. No internal calcifications are evident. This is somewhat kidney-shaped.. No other significant anomalies are evident. There is some unusual enhancement along the inferior aspect of the left lateral pterygoid muscle versus calcification.. No dominant cervical adenopathy. The thyroid gland has an unremarkable appearance. The nasopharynx, oropharynx and hypopharynx as well as the glottic region have an unremarkable appearance. There are centrilobular and paraseptal emphysematous changes in the lung apices. There is mild degenerative disc disease at C5-C6 and C6-C7 IMPRESSION: 1. 12 mm well circumscribed slightly hyperdense nodule in the lower portion of the superficial lobe of the left parotid gland. Differential diagnosis would include pleomorphic adenoma or intraparotid lymph node. Ultrasound-guided FNA could be performed if clinically desired. 2. Increased density in the left lateral pterygoid muscle along the muscle plane and could be due to some atypical enhancement or calcification. 3. Centrilobular/paraseptal emphysema in the lung apices Dictated by: George Ledesma MD 08/07/2020 12:18 George Ledesma MD in [place] 08/07/2020 12:18
[2020-08-06 14:31] LABS: Blood Urea Nitrogen 12 mg/dl (7-17); Estimated Glomerular Filt Rate 56 ml/min (>60); GFR (African American) 68 ML/MIN (>60)
== END ==
PROVIDERS: PCP Emergency Medicine; Visit Provider Otolaryngology
DX: R59.1 Generalized enlarged lymph nodes (principal)
CPT/HCPCS: 36415; 70491; 82565; 84520; Q9967

== ENCOUNTER → 2021-01-24 12:37 | Outpatient (CLI) | payer MEDICARE, MEDICAID, SELFPAY ==
[2021-01-24 13:54] LABS: Coronavirus 19 IgG Antibody Negative (Negative); Coronavirus 19 IgM Antibody Negative (Negative)
== END ==
PROVIDERS: Visit Provider Internal Medicine Gastroenterology
DX: Z01.818 Encounter for other preprocedural examination (principal); Z11.52 Encounter for screening for COVID-19; Z13.810 Encounter for screening for upper gastrointestinal disorder
CPT/HCPCS: 36415; 86328

== ENCOUNTER 2021-01-27 07:33 | Day surgery (SDC) | payer MEDICARE, MEDICAID, SELFPAY ==
[2021-01-21 10:34] VITALS: BMI 33.5
[2021-01-27 07:51] VITALS: BP 115/60; PULSE 56; RESP 18; TEMP 36.4; O2SAT 94
[2021-01-27 08:27] VITALS: O2SAT 97
--- NOTE | 2021-01-27 08:28 | HMH.ANESCL ---
[facility] Anesthesia Checklist - Patient Identification Patient Identification: Arm Band - Structural Data Admitted From: Home Planned Operative Procedure/s: egd Consent for Planned Operative Procedure(s) Verified: Yes Verified Documents: Surgical Consent, History and Physical - NPO Status Verified Time NPO: 00:00 - Additional verifications Anesthesia Reactions: No - Airway Assessment C-Spine Mobility Assessed: Yes (mp2) TMJ Mobility Assessed: Yes Dentition: Edentulous - Neurological Assessment Level of Consciousness: Awake, Alert - Anesthesia Plan Anesthesia Risk discussed: Yes Anesthesia Plan: Verified ASA Class: III Anesthesia Type: MAC [facility] History I have reviewed the patient's past medical history: Yes Medical History: Reports:: Aneurysm, Anxiety, Chronic Obstructive Pulmonary Disease (COPD), Coronary Artery Disease, Depression, Gastroesophageal Reflux Disease(GERD), Hyperlipidemia, Hypertension, Lung Disease, Migraine, Peripheral Artery Disease Denies:: Cancer, Diabetes Mellitus Type 1, Diabetes Mellitus Type 2, Internal Pacemaker, MRSA, Seizures *Have you ever received a pneumonia vaccine?: No *Have you received a flu vaccine this season?: Yes Other Medical History: Reports: Glaucoma Anesthesia experience/problems:: nac Other Surgeries: Yes: Cardiac Catheterization, Cholecystectomy, Colonoscopy, Coronary Stent, EGD (2018), Hysterectomy-Total, Hysterectomy-Partial, Tubal Ligation, Other. No: Pacemaker Amputation: No Fractures: No - *Social History Smoking Status: Current every day smoker Tobacco Type: cigarettes # Packs/Day (cigarettes): 1 #Yrs smoked (if former smoker): 40 Alcohol Intake: never Alcohol Intake Frequency:: holidays/special occasions only Substance Use Type: denies use *Occupational Status:: disabled Housing: house *Travel in the last 8 weeks: None - Psychiatric History Pschychiatric History:: Reports:: Anxiety, Depression Family Hx:: Coronary Artery Disease, Heart Attack
--- NOTE | 2021-01-27 08:30 | HMH.PROC ---
[facility] Procedure Note Procedure Note:: Upper Endoscopy Procedure Report: Esophagogastroduodenoscopy with cold biopsies and TTS balloon dilation Endoscopost: Jeff Ferreira II, MD Referring Physician: Dante Santillan MD/Jean-Paul Blair MD Date of Procedure: January 27, 2021 Equipment: Olympus GIF 180 standard upper endoscope Sedation: MAC sedation Indications: Mrs. Coelho is a 60-year-old female with longstanding dyspepsia. She did have panendoscopy with me in October 2018. At that time, she had epigastric abdominal pain and felt the need to belch. She also has had obstipation with incomplete defecation. She has alternating irritable bowel syndrome. The patient does have ongoing symptoms of epigastric pain. In June 2020 she had an ultrasound of the abdomen and blood work. Her ultrasound showed a fatty liver. She had previously undergone cholecystectomy. Her biliary system was normal with CBD diameter of 7 mm. She does have daily epigastric pain and discomfort with marked bloating, nausea and early satiety. She has intermittent dysphagia to both solids and liquids. She often has bowel irregularity. She will go 2 to 3 days without a bowel movement and then have watery bowel movements for a week. She takes Reglan and Zoloft. Procedure: Prior to the procedure, a history and physical exam was performed, and patient's medications and allergies were reviewed. The risks, benefits and alternatives of the sedation and procedure were discussed with the patient. All questions were answered and informed consent was obtained. The patient was brought to the procedure room. Patient identification and proposed procedure were verified by the physician and the nurse. The patient was placed in a left lateral decubitus position and the scope was passed under direct vision. Throughout the procedure, the patient's blood pressure, pulse, and oxygen saturations were monitored continuously. The upper GI endoscopy was accomplished without difficulty. The patient tolerated the procedure well. Findings: The scope was passed directly into the upper esophagus and advanced to the third portion of the duodenum. The post bulbar duodenum and duodenal bulb were normal with normal mucosa and conniventes. The scope was withdrawn through a normal duodenal bulb and pylorus into the stomach. There was moderate linear reactive gastropathy with erosion and a small amount of coffee-ground. This was consistent with reactive gastropathy and possible NSAID gastropathy. The remainder of the fundus of the stomach were grossly normal. Upon retroflexion there was a very small sliding 1 to 2 cm hiatal hernia. 2 biopsies were taken in the antrum and along the lesser curvature for histology to rule out gastritis and/or H pylori. The scope was then withdrawn into the esophagus. There was a serrated Z-line and biopsies were taken at the GE junction. There was no evidence of reflux esophagitis or Schatzki's ring. There were tertiary contractions and evidence of moderate esophageal dysmotility. The entire esophagus was dilated to 60 Syri[place]/20 mm with a TTS hydrostatic balloon. There was some resistance at the cricopharyngeus. The remainder of the esophageal mucosa was normal. Impression: 1. Cricopharyngeal spasm status post dilation to 20 mm 2. Nonerosive GERD with moderate esophageal dysmotility and very small sliding 1 to 2 cm hiatal hernia 3. Moderate erosive linear reactive gastropathy Plan: I will follow-up the biopsies. We will discuss additional treatment options of her dyspepsia. I would recommend continuation of the FDgard and Gas-X. I would also recommend PPI therapy and possibly treatment for visceral sensitivity. I would encourage completion of the sucrose C 13 breath testing.
[2021-01-27 08:42] VITALS: BP 77/43; PULSE 58; RESP 18; TEMP 36.6; O2SAT 93
[2021-01-27 08:52] VITALS: BP 89/54; PULSE 51; RESP 18; O2SAT 94
[2021-01-27 09:02] VITALS: BP 117/67; PULSE 56; RESP 18; O2SAT 95
[2021-01-27 09:30] VITALS: BP 115/69; PULSE 57; RESP 18; O2SAT 95
== END 2021-01-27 09:31 | disposition home or self-care (01) ==
LOC: OUTP 07:35
PROVIDERS: PCP Emergency Medicine; Visit Provider Internal Medicine Gastroenterology
PROC: 0DJ08ZZ Inspection of Upper Intestinal Tract, Via Natural or Artificial Opening Endoscopic (ICD-10-PCS; CPT 43235; principal; 2021-01-27 08:30)
DX: K76.0 Fatty (change of) liver, not elsewhere classified (principal); K58.2 Mixed irritable bowel syndrome; Z79.899 Other long term (current) drug therapy; J39.2 Other diseases of pharynx; K21.9 Gastro-esophageal reflux disease without esophagitis; K22.4 Dyskinesia of esophagus; K44.9 Diaphragmatic hernia without obstruction or gangrene; K31.9 Disease of stomach and duodenum, unspecified; J44.9 Chronic obstructive pulmonary disease, unspecified; I25.10 Atherosclerotic heart disease of native coronary artery without angina pectoris; I10 Essential (primary) hypertension; E78.5 Hyperlipidemia, unspecified
CPT/HCPCS: 43239; 43249; 88305; C1726

== ENCOUNTER 2021-01-28 16:48 | Observation (INO) | payer MEDICARE, MEDICAID, SELFPAY ==
[2021-01-28 17:01] VITALS: BP 93/40; PULSE 74; RESP 18; TEMP 36.9; O2SAT 98; BMI 33.8
--- NOTE | 2021-01-28 17:35 | HMH.EDGENADL ---
ED Disposition Clinical Impression: Decreased oral intake GI bleed Qualifiers: GI bleed type/associated pathology: melena Qualified Code(s): K92.1 - Melena Disposition: Admitted as Observation Condition on Discharge: Fair Referrals: Dante Santillan MD [Primary Care Provider] - Time of Disposition: 19:01 - Critical Care Critical Care Time: No Attestation: On 01/28/21, the high probability of a clinically significant, sudden or life threatening deterioration of the following system(s) required my full and direct attention, intervention and personal management. The time I documented below is in addition to time spent performing reported procedures but includes the following listed in this critical care notation. Medical Decision Making - Medical Records Medical records reviewed: Yes: I reviewed the patient's medical records. - Marco A Inquiry Pt receiving controlled substance: No Vital Signs: 01/28/21 17:01 Temperature 98.5 F Temperature Source Oral Pulse Rate [Left Radial] 74 Respiratory Rate 18 Blood Pressure [Left Arm] 93/40 L Blood Pressure Mean [Left Arm] 57 Blood Pressure Source [Left Arm] Automatic Cuff Blood Pressure Position [Left Arm] Sitting 02 Sat by Pulse Oximetry 98 Oxygen Delivery Method Room Air - Lab Data Lab Results 01/28/21 17:30: WBC 9.0, RBC 4.09 L, Hgb 11.7 L, Hct 35.5 L, MCV 86.8, MCH 28.5, MCHC 32.8, RDW 14.5, Plt Count 368, MPV 7.5, Neut % (Auto) 63.0, Lymph % (Auto) 29.2, [place] % (Auto) 4.8, Eos % (Auto) 2.2, Baso % (Auto) 0.8, Neut # (Auto) 5.7, Lymph # (Auto) 2.6, [place] # (Auto) 0.4, Eos # (Auto) 0.2, Baso # (Auto) 0.1 01/28/21 17:30: Sodium 138, Potassium 4.6, Chloride 108 H, Carbon Dioxide 27, Anion Gap 7.6, BUN 18 H, Creatinine 1.00, Estimated GFR 56 L, Est GFR ( Amer) 68, Glucose 117 H, Calcium 9.0, Total Bilirubin 0.3, AST 26, ALT 17, Alkaline Phosphatase 68, Troponin I < 0.01, Total Protein 6.7, Albumin 3.8, Globulin 2.9, Albumin/Globulin Ratio 1.3, Lipase 131 01/28/21 17:50: Lactate 1.2 Result diagrams: 01/28/21 17:30 01/28/21 17:30 Orders (Tests/Meds): ED MEDICATIONS Generic Name Dose Route Start Last Admin Trade Name Freq PRN Reason Stop Dose Admin Sodium Chloride 1,000 mls @ 999 mls/hr 01/28/21 17:45 01/28/21 17:51 Sod Chlor 0.9% 1000ml Bag IV 01/28/21 18:45 999 mls/hr .Q1H1M ALEE Administration Sodium Chloride 10 ml 01/28/21 17:33 Sodium Chloride 0.9% 10ml Vial IV 02/27/21 17:32 NEEDED PRN dilute protonix Discontinued Medications Generic Name Dose Route Start Last Admin Trade Name Freq PRN Reason Stop Dose Admin Pantoprazole Sodium 40 mg 01/28/21 17:33 01/28/21 17:50 Pantoprazole 40mg Vial IV 01/28/21 17:34 40 mg ONCE ONE Administration ORDERS Category Date Time Status Type and Screen Stat BBK 01/28/21 17:50 Received Full Resp Panel w/COVID ([facility]) Routine Lab 01/28/21 18:12 Ordered Troponin I Q3H Lab 01/28/21 20:45 Ordered Troponin I Q3H Lab 01/28/21 23:45 Ordered EKG Request [ECG Request by /Delia] Stat Y 01/28/21 17:34 Ordered Medical Decision Narrative: In summary this is a 60-year-old female presenting to the emergency department with epigastric pain and dark tarry stools after upper endoscopy. Patient clinically stable on arrival. Vital signs are within normal limits. Most likely diagnosis is persistent GI bleed from EGD biopsies. Will obtain CBC, CMP, lipase, lactic acid, type and screen. Patient given 40 mg IV Protonix. Initial laboratory results are reassuring. Hemoglobin 11.7. BUN only slightly elevated at 18. No renal insufficiency. No other abnormalities. On reassessment patient continues to feel generally unwell. Does not think she can eat or drink at this time. Family more comfortable with plan for admission and observation tonight. She will be admitted to Dr. Rodríguez. General Adult HPI - General Stated complaint: Complications from Procedure on 01-27-21 T
[2021-01-28 17:50] LABS: Basophils # 0.1 K/mm3 (0-0.2); Basophils % 0.8 % (0.1-2.0); Eosinophils # 0.2 K/mm3 (0.0-0.4); Eosinophils % 2.2 % (0.1-12.0); Hematocrit 35.5 % (37.0-47.0); Hemoglobin 11.7 g/dL (12.2-16.2); Lymphocytes # 2.6 K/mm3 (0.7-4.5); Lymphocytes % 29.2 % (10-50); Mean Corpuscular HGB Conc 32.8 g/dL (31.8-35.4); Mean Corpuscular Hemoglobin 28.5 pg (27.0-31.2); Mean Corpuscular Volume 86.8 fl (81-99); Mean Platelet Volume 7.5 fl (7.4-10.4); Monocytes # 0.4 K/mm3 (0.1-1.0); Monocytes % 4.8 % (1.7-9.3); Neutrophils # 5.7 K/mm3 (1.8-7.8); Platelet Count 368 K/mm3 (142-424); Red Blood Count 4.09 M/mm3 (4.20-5.40); Red Cell Distribution Width 14.5 % (11.5-17.5)
[2021-01-28 17:52] LABS: Alanine Aminotransferase 17 U/L (12-78); Albumin Level 3.8 g/dl (3.5-5.0); Albumin/Globulin Ratio 1.3 (1.1-1.8); Alkaline Phosphatase 68 U/L (38-126); Anion Gap 7.6 mEq/L (5-15); Aspartate Amino Transferase 26 U/L (14-36); Bilirubin,Total 0.3 mg/dl (0.2-1.3); Blood Urea Nitrogen 18 mg/dl (7-17); Carbon Dioxide 27 mmol/L (22.0-30.0); Chloride 108 mmol/L (98-107); Estimated Glomerular Filt Rate 56 ml/min (>60); GFR (African American) 68 ML/MIN (>60); Globulin 2.9 g/dL (1.3-3.2); Glucose 117 mg/dl (74-100); Lipase 131 U/L (23-300); Potassium 4.6 mmoL/L (3.5-5.1); Sodium 138 mmol/L (136-145); Total Protein,Serum 6.7 g/dl (6.3-8.2)
[2021-01-28 18:09] LABS: Troponin I < 0.01 ng/ml (0.00-0.034)
[2021-01-28 18:12] LABS: Lactic Acid 1.2 mmol/L (0.7-2.1)
[2021-01-28 19:46] LABS: Adenovirus,PCR Not Detected (NotDetected); Bordetella Pertussis Not Detected (NotDetected); Chlamydophila Pneumoniae, PCR Not Detected (NotDetected); Coronavirus 19, PCR Not Detected (NotDetected); Coronavirus 229E Not Detected (NotDetected); Coronavirus NL63 Not Detected (NotDetected); Coronavirus OC43 Not Detected (NotDetected); Coronovirus HKU1,PCR Not Detected (NotDetected); Human Metapneumovirus Not Detected (NotDetected); Influenza A, PCR Not Detected (NotDetected); Influenza AH1, 2009 Not Detected (NotDetected); Influenza AH1, PCR Not Detected (NotDetected); Influenza AH3,PCR Not Detected (NotDetected); Influenza B, PCR Not Detected (NotDetected); Mycoplasma Pneumoniae, PCR Not Detected (NotDetected); Parainfluenza 1, PCR Not Detected (NotDetected); Parainfluenza 2, PCR Not Detected (NotDetected); Parainfluenza 3, PCR Not Detected (NotDetected); Parainfluenza 4, PCR Not Detected (NotDetected); Respiratory Syncytial Virus Not Detected (NotDetected); Rhinovirus/Enterovirus Not Detected (NotDetected)
[2021-01-28 20:12] VITALS: BP 109/68; PULSE 76; RESP 18; TEMP 36.9; O2SAT 98
[2021-01-28 20:17] VITALS: BP 140/63; PULSE 66; RESP 18; TEMP 36.6; O2SAT 97; BMI 36.1
--- NOTE | 2021-01-28 20:17 | PC.NURSE ---
pt arrived to floor via w/c from ed w/staff st 2016
[2021-01-28 23:45] VITALS: BP 117/61; PULSE 69; RESP 16; TEMP 36.9; O2SAT 93
[2021-01-29 04:00] VITALS: BP 127/60; PULSE 65; RESP 16; TEMP 37.1; O2SAT 93
--- NOTE | 2021-01-29 04:07 | PC.NURSE ---
pt has rested well since arrival to floor, pt is alert and oriented and able to make needs known, no complaints of nausea or vomiting, no complaints of abdominal pain, no episodes of melena since arrival to floor, iv is patent, bowel sounds remain active, lungs clear to auscultate, heart rate regular, vss iv patent, pt has tolerated peanut butter and crackers without emesis. no distress noted at this time will continue to monitor
[2021-01-29 05:00] VITALS: BMI 36.1
--- NOTE | 2021-01-29 07:32 | P.CONPHA_ITS ---
[facility] Pharmacy VTE Monitoring - Patient Demographics Admission date: 01/28/21 Report Date: 01/29/21 Time: 07:33 Allergies/Adverse Reactions: Patient Allergies No Known Allergies Allergy (Verified 01/24/21 09:14) Height: 1.57 m Weight: 89.074 kg Patient Problems: Current Active Problems GI bleed (Acute) Decreased oral intake (Acute) - VTE Risk Labs: VTE Related Lab Results Hgb 11.7 g/dL (12.2-16.2) L 01/28/21 17:30 Hct 35.5 % (37.0-47.0) L 01/28/21 17:30 Plt Count 368 K/mm3 (142-424) 01/28/21 17:30 BUN 18 mg/dl (7-17) H 01/28/21 17:30 Creatinine 1.00 mg/dl (0.52-1.04) 01/28/21 17:30 Was VTE Risk Assessment Performed: Yes VTE Score: 6 VTE Risk Level: Moderate Risk - Prophylaxis VTE Prophylaxis Ordered?: Yes Types of VTE Prophylaxis: TEDS Knee High Location of Applied Device: Bilateral Lower Extremeties
[2021-01-29 07:34] VITALS: O2SAT 100
[2021-01-29 07:41] LABS: Basophils # 0.1 K/mm3 (0-0.2); Basophils % 0.7 % (0.1-2.0); Eosinophils # 0.2 K/mm3 (0.0-0.4); Eosinophils % 2.6 % (0.1-12.0); Hematocrit 33.4 % (37.0-47.0); Hemoglobin 10.8 g/dL (12.2-16.2); Lymphocytes # 2.8 K/mm3 (0.7-4.5); Lymphocytes % 33.8 % (10-50); Mean Corpuscular HGB Conc 32.5 g/dL (31.8-35.4); Mean Corpuscular Volume 86.3 fl (81-99); Mean Platelet Volume 8.3 fl (7.4-10.4); Monocytes # 0.4 K/mm3 (0.1-1.0); Monocytes % 4.8 % (1.7-9.3); Neutrophils # 4.8 K/mm3 (1.8-7.8); Neutrophils % 58.1 % (37.0-80.0); Platelet Count 316 K/mm3 (142-424); Red Blood Count 3.87 M/mm3 (4.20-5.40); Red Cell Distribution Width 14.9 % (11.5-17.5); White Blood Count 8.2 K/mm3 (4.8-10.8)
[2021-01-29 07:48] LABS: Anion Gap 9.1 mEq/L (5-15); Blood Urea Nitrogen 13 mg/dl (7-17); Calcium 8.4 mg/dl (8.4-10.2); Carbon Dioxide 23 mmol/L (22.0-30.0); Chloride 112 mmol/L (98-107); Creatinine Clearance Estimated 82 mL/min (50-200); Estimated Glomerular Filt Rate 73 ml/min (>60); GFR (African American) 88 ML/MIN (>60); Glucose 111 mg/dl (74-100); Potassium 4.1 mmoL/L (3.5-5.1); Sodium 140 mmol/L (136-145)
[2021-01-29 08:00] VITALS: BP 137/61; PULSE 70; RESP 16; TEMP 36.8; O2SAT 96
[2021-01-29 08:31] LABS: Occult Blood,Stool Positive (Negative)
--- NOTE | 2021-01-29 12:18 | HMH.PHAINT ---
MEDICATION RECONCILIATION COMPLETED ON PATIENT USING EXTERNAL FILL HISTORY FROM PHARMACY AND LIST FROM CARDIOLOGY OFFICE. -RONALD ALAMOD
--- NOTE | 2021-01-29 12:28 | HMH.HPDC ---
General - General Admission date:: 01/28/21 Discharge date: 01/29/21 *Admission Date: 01/28/21 *Chief complaint: Black Tarry Stools *History of present illness: 60-year-old female patient presented to the emergency department with multiple dark tarry stools and epigastric pain. Patient reports she had an EGD done 2 days prior with multiple (11-13) biopsies taken. She denies any chest pain, shortness of breath, dizziness, fatigue. She denies nausea or vomiting, fever/chills/body aches, Hematology White blood cell count 9, hemoglobin 11.7, hematocrit 35.5 Chemistries unremarkable She received 1 L normal saline and pantoprazole IV in the emergency department Patient reports in the emergency department she is unable to tolerate any solids or liquids at the moment and states she believes it would be better if she was admitted to the hospital overnight. Family also voices need for patient to be admitted overnight. [facility] History I have reviewed the patient's past medical history: Yes Medical History: Reports:: Aneurysm, Anxiety, Congestive Heart Failure, Chronic Obstructive Pulmonary Disease (COPD), Coronary Artery Disease, Depression, Gastroesophageal Reflux Disease(GERD), Hyperlipidemia, Hypertension, Lung Disease, Migraine, Peripheral Artery Disease Denies:: Cancer, Diabetes Mellitus Type 1, Diabetes Mellitus Type 2, Internal Pacemaker, MRSA, Seizures *Have you ever received a pneumonia vaccine?: Yes *Have you received a flu vaccine this season?: Yes Other Medical History: Reports: Glaucoma Other Surgeries: Yes: Cardiac Catheterization, Cholecystectomy, Colonoscopy, Coronary Stent, EGD (2018), Hysterectomy-Total, Hysterectomy-Partial, Tubal Ligation, Other. No: Pacemaker Amputation: No Fractures: No - *Social History Smoking Status: Current every day smoker Tobacco Type: cigarettes # Packs/Day (cigarettes): 1 #Yrs smoked (if former smoker): 40 Alcohol Intake: never Alcohol Intake Frequency:: holidays/special occasions only Substance Use Type: denies use *Occupational Status:: disabled Housing: house *Travel in the last 8 weeks: None - Psychiatric History Pschychiatric History:: Reports:: Anxiety, Depression Family Hx:: No significant family history Review of Systems - Review of Systems Review of systems:: pertinent systems reviewed and negative unless documented below - Constitutional Denies anorexia, Denies chills - Eyes Denies blind spots, Denies change in vision - ENT Denies abnormal hearing, Denies ear pain - *Cardiovascular Denies chest pain, Denies shortness of breath - *Respiratory Denies chest congestion, Denies cough - *Gastrointestinal Reports abdominal pain, Reports change in bowel habits, Reports change in stools, Reports black, tarry stools, Denies coffee ground vomit, Denies vomiting - *Musculoskeletal Denies abnormal walking, Denies back pain - Integumentary/Breasts Denies hair loss, Denies change in skin color - *Neurologic Denies dizziness, Denies headache(s) - Psychiatric Denies abnormal sleep pattern, Denies behavioral changes - Endocrine Denies cold intolerance, Denies heat intolerance - Hematologic/Lymphatic Denies easy bruising, Denies enlarged lymph nodes - Allergic/Immunologic Denies itchy eyes, Denies throat swelling Exam Vital signs and Labs for Last 24 Hours: Temp Pulse Resp BP Pulse Ox 98.2 F 70 16 137/61 96 01/29/21 08:00 01/29/21 08:00 01/29/21 08:00 01/29/21 08:00 01/29/21 08:00 Laboratory Results - last 24 hr 01/28/21 17:30: WBC 9.0, RBC 4.09 L, Hgb 11.7 L, Hct 35.5 L, MCV 86.8, MCH 28.5, MCHC 32.8, RDW 14.5, Plt Count 368, MPV 7.5, Neut % (Auto) 63.0, Lymph % (Auto) 29.2, [place] % (Auto) 4.8, Eos % (Auto) 2.2, Baso % (Auto) 0.8, Neut # (Auto) 5.7, Lymph # (Auto) 2.6, [place] # (Auto) 0.4, Eos # (Auto) 0.2, Baso # (Auto) 0.1 01/28/21 17:30: Sodium 138, Potassium 4.6, Chloride 108 H, Carbon Dioxide 27, Anion Gap 7.6, BUN 18 H, Creat
== END 2021-01-29 13:30 | disposition home or self-care (01) ==
LOC: ER 16:58 → 2ND 19:01
PROVIDERS: Admitting Provider Family Medicine; Emergency Provider Emergency Medicine; PCP Emergency Medicine; Visit Provider Emergency Medicine
DX: K92.2 Gastrointestinal hemorrhage, unspecified (principal); I11.0 Hypertensive heart disease with heart failure; I50.31 Acute diastolic (congestive) heart failure; I25.10 Atherosclerotic heart disease of native coronary artery without angina pectoris; Z95.5 Presence of coronary angioplasty implant and graft; Z72.0 Tobacco use; Z79.02 Long term (current) use of antithrombotics/antiplatelets; Z79.82 Long term (current) use of aspirin; Z79.51 Long term (current) use of inhaled steroids; Z79.899 Other long term (current) drug therapy; G43.909 Migraine, unspecified, not intractable, without status migrainosus
CPT/HCPCS: 36415; 80048; 80053; 82272; 83605; 83690; 84484; 85025; 86850; 87581; 87633; 87798; 88305; 93005; 96365; 96375; 99282; G0328; G0378

== ENCOUNTER → 2021-04-22 16:01 | Outpatient (CLI) | payer MEDICARE, MEDICAID, SELFPAY ==
[2021-04-24 13:59] LABS: Amphetamine/Metha Screen,Urine Negative ng/ml (<1000); Barbiturates Screen,Urine Negative ng/ml (<200)
[2021-04-24 14:00] LABS: Benzodiazepines Screen,Urine Negative ng/ml (<200)
[2021-04-24 14:01] LABS: Cannabinoid Screen,Urine Negative ng/ml (<50)
[2021-04-24 14:03] LABS: Phencyclidine Screen,Urine Negative ng/ml (<25)
[2021-04-24 14:04] LABS: Cocaine Screen,Urine Negative ng/ml (<300)
[2021-04-24 14:05] LABS: Methadone Screen,Urine Negative ng/ml (<300)
[2021-04-24 14:06] LABS: Opiate Screen,Urine Negative ng/ml (<300)
== END ==
PROVIDERS: Visit Provider Emergency Medicine
DX: M54.9 Dorsalgia, unspecified (principal); Z79.899 Other long term (current) drug therapy
CPT/HCPCS: 80305

== ENCOUNTER → 2021-06-19 15:40 | Outpatient (CLI) | payer MEDICARE, MEDICAID, SELFPAY | PROVIDERS: Visit Provider Internal Medicine Cardiovascular Disease | DX: Z01.812 Encounter for preprocedural laboratory examination (principal); Z20.822 Contact with and (suspected) exposure to COVID-19 | CPT/HCPCS: U0003 ==

== ENCOUNTER 2021-06-20 09:07 | Day surgery (SDC) | payer MEDICARE, MEDICAID, SELFPAY ==
[2021-06-20] VITALS (10 sets, daily range): BP systolic 121–153; BP diastolic 68–94; PULSE 64–80; RESP 18–20; O2SAT 90–99; BMI 34.4
--- NOTE | 2021-06-20 | IR_ITS ---
APPROVED REPORT Patient Location: Outpatient PROCEDURES Left heart catheterization Left ventriculogram Selective coronary angiogram Drug-eluting stent deployment to the proximal mid distal dominant right coronary in a contiguous manner with 2 drug-eluting stents INDICATION Accelerated angina pectoris, Coronary artery disease, Informed consent was obtained prior to the procedure. COMPLICATIONS NONE Estimated Blood Loss: LESS THAN 10 ML TECHNIQUE One percent lidocaine used to anesthetize the right anterior aspect of the wrist. The right radial artery was accessed via the Seldinger technique. A 6 Croatian sheath was placed in the right radial artery. 2.5 mg of verapamil, 800 mcg of nitroglycerin, 1mg Lidocaine and 5000 U Heparin were given through the arterial sheath. The trap catheter was also used to perform left heart catheterization, left ventriculogram and selective coronary angiogram. At the end of the procedure therapeutic heparin was administered giving a therapeutic ACT and a Poppa catheter was used to intubate the right coronary. Choice PT extra-support wire was placed distally in the right coronary and a 4 mm x 30 mm resolute Aspen stent was deployed at 20 star reducing the stenosis to 20%. A 4 mm x 38 mm resolute Bradley stent was then placed proximal to this and deployed at 24 star. The same balloon was then advanced into the distal portion of the first stent that was deployed and then deployed at 24 star to further post dilate reducing the stenosis to 0%. SHABBIR-3 flow was present before and after the procedure. At the end of the procedure the apparatus was removed the sheath was removed and hemostasis was achieved with a TR banding patient was transferred to the postop holding her stable condition. ANGIOGRAPHIC RESULTS The left main artery Normal The left anterior descending artery Has proximal 10 to 20% stenoses with mid vessel 10% luminal irregularities The circumflex artery Is nondominant has proximal 20% stenoses with mid vessel 20% stenosis along a tortuous bend The right coronary artery Is a large dominant vessel and has a proximal eccentric at least 50% stenosis with mid vessel 50% stenosis and a distal concentric 80% stenosis The WILSON ventriculogram reveals Normal 65% The left ventricular end-diastolic pressure 20 mmHg IMPRESSION Severe single-vessel coronary disease as described above Successful stenting of the right coronary as described above severe disease reduced to 0% with 2 contiguous drug-eluting stents Normal ejection fraction Elevated LVEDP PLAN 1. Continue dual antiplatelet therapy 2. Risk factor modification 3. Cardiac rehabilitation 4. Avoidance of tobacco products 5. LDL less than 55 Electronically signed by : Andrez Hernandez, 06/20/2021 15:30:00
[2021-06-20 09:43] LABS: Basophils # 0.1 K/mm3 (0-0.2); Basophils % 0.7 % (0.1-2.0); Eosinophils # 0.3 K/mm3 (0.0-0.4); Eosinophils % 2.3 % (0.1-12.0); Hematocrit 39.3 % (37.0-47.0); Hemoglobin 13.4 g/dL (12.2-16.2); Lymphocytes # 2.7 K/mm3 (0.7-4.5); Lymphocytes % 18.7 % (10-50); Mean Corpuscular Hemoglobin 26.1 pg (27.0-31.2); Mean Corpuscular Volume 76.7 fl (81-99); Mean Platelet Volume 7.7 fl (7.4-10.4); Monocytes # 0.7 K/mm3 (0.1-1.0); Monocytes % 4.7 % (1.7-9.3); Neutrophils # 10.5 K/mm3 (1.8-7.8); Neutrophils % 73.6 % (37.0-80.0); Platelet Count 406 K/mm3 (142-424); Red Blood Count 5.12 M/mm3 (4.20-5.40); White Blood Count 14.2 K/mm3 (4.8-10.8)
[2021-06-20 09:46] LABS: Chloride 102 mmol/L (98-107)
[2021-06-20 09:47] LABS: Potassium 4.3 mmoL/L (3.5-5.1); Sodium 136 mmol/L (136-145)
[2021-06-20 09:49] LABS: Blood Urea Nitrogen 11 mg/dl (7-17); Creatinine Clearance Estimated 75 mL/min (50-200); Estimated Glomerular Filt Rate 56 ml/min (>60); GFR (African American) 68 ML/MIN (>60)
[2021-06-20 09:50] LABS: Anion Gap 13.3 mEq/L (5-15); Calcium 9.2 mg/dl (8.4-10.2); Carbon Dioxide 25 mmol/L (22.0-30.0); Glucose 99 mg/dl (74-100)
[2021-06-20 16:03] LABS: CATHL Activated Clotting Time 356 SEC (74-125)
--- NOTE | 2021-06-20 17:04 | HMH.PHACLD ---
No Coelho has received discharge medication counseling on the following medications: -ASA -PLAVIX -RAMIPRIL -BISPROLOL -ATORVASTATIN
== END 2021-06-20 17:28 | disposition home or self-care (01) ==
LOC: CATHLAB 09:08
PROVIDERS: PCP Emergency Medicine; Visit Provider Internal Medicine
DX: I27.20 Pulmonary hypertension, unspecified (principal); J44.9 Chronic obstructive pulmonary disease, unspecified; I25.118 Atherosclerotic heart disease of native coronary artery with other forms of angina pectoris; F17.210 Nicotine dependence, cigarettes, uncomplicated; I11.0 Hypertensive heart disease with heart failure; I50.9 Heart failure, unspecified
CPT/HCPCS: 80048; 85025; 85347; 92928; 93458; 99152; C1725; C1769; C1876; C9600; J1644; Q9967

== ENCOUNTER → 2021-07-09 10:22 | Outpatient (CLI) | payer MEDICARE, MEDICAID, SELFPAY ==
--- NOTE | 2021-07-09 10:22 | US_ITS ---
APPROVED REPORT Exam Type: Lower Extremity Segmental Pressures Male Infertility Specialist: Ernestina Yousif RVT Indications Claudication: Bilaterally Current Smoker Risk Factors History of PAD: Hyperlipidemia Current Smoker Pressures/Indices Right Indices Left Indices Brachial 112.00 mmHg Brachial 111.00 mmHg Low Thigh 108.00 mmHg 0.96 Low Thigh 119.00 mmHg 1.06 Calf 108.00 mmHg 0.96 Calf 106.00 mmHg 0.95 Ankle(PT) 113.00 mmHg 1.01 Ankle(PT) 109.00 mmHg 0.97 Ankle(DP) 113.00 mmHg 1.01 Ankle(DP) 114.00 mmHg 1.02 Digit 79.00 mmHg 0.71 Digit 87.00 mmHg 0.78 Findings RT BERT:1.01 LT BERT:1.02 RT TBI:0.71 LT TBI:0.78 NORMAL PULSES BILATERAL DAMPANED WAVEFORMS AT ALL LEVELS Conclusion RT BERT:1.01 LT BERT:1.02 RT TBI:0.71 LT TBI:0.78 NORMAL PULSES BILATERAL DAMPANED WAVEFORMS AT ALL LEVELS Normal appearing resting noninvasive lower extremity arterial study. Electronically signed by : George Ledesma MD 07/09/2021 17:51:28
== END ==
PROVIDERS: PCP Emergency Medicine; Visit Provider Internal Medicine Cardiovascular Disease
DX: I73.9 Peripheral vascular disease, unspecified (principal)
CPT/HCPCS: 93923

== ENCOUNTER → 2021-07-31 07:56 | Outpatient (CLI) | payer MEDICARE, MEDICAID, SELFPAY ==
--- NOTE | 2021-07-31 08:01 | CT_ITS ---
PROCEDURE: CT LUNG SCREENING CLINICAL INDICATION: lung cancer screening COMPARISON: DX XR CHEST 2V from 07/03/2020 TECHNIQUE: The exam was performed on a GE Light Speed [address] scanner using 2.90 mGy CTDI. A low dose helical CT CHEST was performed on a multi-detector scanner. All CT scans at the facility use one or more dose reduction, viz: automated exposure control, ma/kV adjustment per patient size (including targeted exams where dose is matched to indication, i.e. head), or iterative reconstruction technique. The LDCT was performed in a facility that meets the criteria for the screening program. Data regarding this exam was submitted to ACR which is an approved registry. The order for this exam indicates that it came as a result of a lung cancer screening counseling shard decision-making visit that included all the elements required of such a visit including smoking cessation. The radiologist interpreting this exam meets the CMS criteria for the LDCT lung cancer screening program. The exam is reported using the Lung-RADS classification scale and reported to the ACR registry. NOTE: This study was performed for the specific purposes of lung cancer screening and is not an alternative to diagnostic chest CT. RADIATION DOSE: CTDI vol(CT dose Index-volume) = 2.90mG DLP (Dose Length Product) = 105.25 mGcm FINDINGS: COPD with centrilobular emphysema. Benign-appearing fissural nodule in the right minor fissure at 4 mm. There is an unusual appearing density in the right lower lobe medially 20 mm transverse and 13 mm AP and 11 mm cephalad caudad. In the central this density there is a lucency which is longitudinal in nature this lesion into the right and a left half. The margins of this lesion are spiculated. No effusions. There is a 3 mm nodule in the left lower lobe posterior laterally which may be due to a granuloma. Calcified granuloma is present in the left lower lobe and there is an additional 3 mm nodule in the left lower lobe which may be due to a granuloma too small to categorize. OTHER FINDINGS: No mediastinal or hilar adenopathy. There are few small mediastinal lymph nodes. Coronary artery calcification and/or stent noted in the RCA. IMPRESSION: Lung-RADS Category 4A Suspicious regarding right lower lobe spiculated lesion which could be due to neoplasm or an area of pneumonia. Follow-up: Consider PET-CT for further evaluation as well as pulmonology consult Dictated by: George Ledesma MD 08/04/2021 17:30 George Ledesma MD in [place] 08/04/2021 17:30
== END ==
PROVIDERS: PCP Emergency Medicine; Visit Provider Emergency Medicine
DX: Z87.891 Personal history of nicotine dependence (principal); Z12.2 Encounter for screening for malignant neoplasm of respiratory organs
CPT/HCPCS: 71271

== ENCOUNTER → 2021-10-13 13:05 | Outpatient (CLI) | payer MEDICARE, MEDICAID, SELFPAY ==
--- NOTE | 2021-10-13 13:05 | CT_ITS ---
PROCEDURE: CT CHEST WO CON CLINICAL INDICATION: 3 mth follow up COMPARISON: CT CT LUNG SCREENING from 07/31/2021 TECHNIQUE: Axial images obtained with sagittal and coronal reformats. All CT scans at the facility use one or more dose reduction, viz: automated exposure control, ma/kV adjustment per patient size (including targeted exams where dose is matched to indication, i.e. head), or iterative reconstruction technique. FINDINGS: HEART AND MEDIASTINAL STRUCTURES: Scattered small nodes not significantly changed. Coronary artery stents LUNGS AND PLEURAL SPACES: Centrilobular emphysema. No change in the suspicious 2 cm nodular opacity in the right lung base medially. The margins are spiculated with a nodule divides centrally by lucency as previously described.. Calcified granuloma is present in the left lower lobe. 3 mm subpleural nodule in the left lower lobe unchanged and the benign-appearing fissural nodule in the right minor fissure unchanged. No new nodules apparent. BONY STRUCTURES: No acute bony abnormalities apparent. UPPER ABDOMEN: Unremarkable. ADDITIONAL FINDINGS: No other significant abnormalities. IMPRESSION: Persistent 2 cm bilobular suspicious nodule in the right lower lobe medially. Suspicious for neoplasm. PET CT suggested for further evaluation if not already performed. Percutaneous CT-guided FNA is an additional consideration. If FNA is desired, due to the location and high risk of pneumothorax, would suggest performing at dedicated interventional radiology center.. Dictated by: George Ledesma MD 10/15/2021 08:13 George Ledesma MD in [facility] 10/15/2021 08:13
== END ==
PROVIDERS: PCP Emergency Medicine; Visit Provider Internal Medicine Pulmonary Disease
DX: R91.8 Other nonspecific abnormal finding of lung field (principal)
CPT/HCPCS: 71250

== ENCOUNTER → 2021-11-11 20:08 | Outpatient (CLI) | payer MEDICARE, MEDICAID, SELFPAY ==
[2021-11-11 20:27] LABS: Basophils # 0.1 K/mm3 (0-0.2); Basophils % 0.8 % (0.1-2.0); Eosinophils # 0.1 K/mm3 (0.0-0.4); Eosinophils % 1.5 % (0.1-12.0); Hematocrit 45.4 % (37.0-47.0); Hemoglobin 14.8 g/dL (12.2-16.2); Lymphocytes # 1.8 K/mm3 (0.7-4.5); Lymphocytes % 20.8 % (10-50); Mean Corpuscular HGB Conc 32.5 g/dL (31.8-35.4); Mean Corpuscular Hemoglobin 26.8 pg (27.0-31.2); Mean Corpuscular Volume 82.4 fl (81-99); Mean Platelet Volume 7.9 fl (7.4-10.4); Monocytes # 0.3 K/mm3 (0.1-1.0); Monocytes % 3.9 % (1.7-9.3); Neutrophils # 6.2 K/mm3 (1.8-7.8); Platelet Count 474 K/mm3 (142-424); Red Blood Count 5.51 M/mm3 (4.20-5.40); Red Cell Distribution Width 15.1 % (11.5-17.5); White Blood Count 8.4 K/mm3 (4.8-10.8)
[2021-11-11 20:46] LABS: Alanine Aminotransferase 31 U/L (12-78); Albumin Level 4.3 g/dl (3.5-5.0); Albumin/Globulin Ratio 1.6 (1.1-1.8); Alkaline Phosphatase 101 U/L (38-126); Anion Gap 17.9 mEq/L (5-15); Aspartate Amino Transferase 63 U/L (14-36); Bilirubin,Total 0.2 mg/dl (0.2-1.3); Blood Urea Nitrogen 13 mg/dl (7-17); Calcium 9.5 mg/dl (8.4-10.2); Carbon Dioxide 26 mmol/L (22.0-30.0); Chloride 96 mmol/L (98-107); Estimated Glomerular Filt Rate 63 ml/min (>60); GFR (African American) 77 ML/MIN (>60); Globulin 2.7 g/dL (1.3-3.2); Glucose 81 mg/dl (74-100); Potassium 4.9 mmoL/L (3.5-5.1); Sodium 135 mmol/L (136-145)
[2021-11-11 21:03] LABS: 25-OH Vitamin D, Total 14.3 ng/mL (30-100)
[2021-11-11 21:04] LABS: Free T4 (Free Thyroxine) 0.92 ng/dl (0.78-2.19)
[2021-11-11 21:18] LABS: Thyroid Stimulating Hormone 2.49 uIU/mL (0.465-4.68)
== END ==
PROVIDERS: Visit Provider Emergency Medicine
DX: J44.9 Chronic obstructive pulmonary disease, unspecified (principal); R06.00 Dyspnea, unspecified; E55.9 Vitamin D deficiency, unspecified
CPT/HCPCS: 80053; 82306; 84439; 84443; 85025

== ENCOUNTER → 2021-11-20 09:22 | Outpatient (CLI) | payer MEDICARE, MEDICAID, SELFPAY ==
--- NOTE | 2021-11-20 09:48 | MR_ITS ---
PROCEDURE: MR LUMBAR SPINE WO CON CLINICAL INDICATION: BACK PAIN COMPARISON: CT,PT PET CT Skull Base to Midthigh from 08/11/2021 TECHNIQUE: Standard multiplanar multiecho sequences are performed without contrast. 3-D MIP and myelographic images are also rendered and reviewed FINDINGS: Normal alignment. The spinal cord ends at the L1 level. L1-L2: Unremarkable. L2-L3: Unremarkable. L3-L4: Mild facet hypertrophic change with small amount of fluid in the facet joint L4-5: Mild facet hypertrophic change with a minimal amount of fluid in the facets and minimal bulging disc. L5-S1: Mild facet hypertrophic change. At S2, there is a 12 mm cystic area on the right within the spinal canal. This is incompletely imaged on the axial views. This may very well represent a Tarlov cyst however, there is suggestion of some thickening of the wall on the sagittal images. MRI of the sacrum without and with contrast suggested for further evaluation. Small right renal cyst at 1.4 cm. IMPRESSION: Mild degenerative changes as described above. No extruded herniated disc or bony canal stenosis. Cystic area in the right aspect of L2 spinal canal possibly due to a Tarlov cyst. There is question of some thickening of the wall on the sagittal images. MRI of the sacrum without and with contrast may be of further value. Dictated by: George Ledesma MD 11/21/2021 12:46 George Ledesma MD in [facility] 11/21/2021 12:46
== END ==
PROVIDERS: PCP Emergency Medicine; Visit Provider Emergency Medicine
DX: M54.50 Low back pain, unspecified (principal)
CPT/HCPCS: 72148

== ENCOUNTER → 2022-02-17 10:11 | Outpatient (POV) | payer MEDICARE, MEDICAID, SELFPAY | PROVIDERS: Visit Provider Dermatology | DX: Z00.00 Encounter for general adult medical examination without abnormal findings (principal) ==

== ENCOUNTER → 2022-04-13 15:45 | Outpatient (CLI) | payer MEDICARE, MEDICAID, SELFPAY ==
--- NOTE | 2022-04-13 15:45 | CT_ITS ---
FINAL REPORT CLINICAL HISTORY: 6-month follow-up, smoker COMPARISON: October 13, 2021 FINDINGS: Axial images were obtained from the lung apex to the mid abdomen by computed tomography. Coronal reformatted images were obtained. This study was performed with techniques to keep radiation doses as low as reasonably achievable, (ALARA). Individualized dose reduction techniques using automated exposure control or adjustment of mA and/or kV according to the patient's size were employed. There is no axillary adenopathy. Small mediastinal lymph nodes are unchanged. Heart size is normal. There is no pericardial or pleural effusion. Limited images of the upper abdomen demonstrate intrahepatic and extrahepatic biliary duct dilatation to not be significantly changed. There is no change in a 2.2 cm bilobed right lower lobe nodule with some surrounding ground-glass opacity. Emphysema is present. No new infiltrate or nodule is identified. IMPRESSION: Stable bilobed mixed density right lung nodule. Malignancy a concern. Recommend PET-CT. Reviewed, Interpreted and Dictated by Chinyere Haynes MD Transcribed by Jeovanny Travis Authenticated by Chinyere Haynes MD on 04/13/2022 05:03:44 PM [facility]
== END ==
PROVIDERS: PCP Emergency Medicine; Visit Provider Internal Medicine Pulmonary Disease
DX: R91.8 Other nonspecific abnormal finding of lung field (principal)
CPT/HCPCS: 71250

== ENCOUNTER 2022-04-29 15:28 | Emergency (ER) | payer MEDICARE, MEDICAID, SELFPAY ==
[2022-04-29 15:30] VITALS: BP 101/44; PULSE 61; RESP 17; TEMP 36.9; O2SAT 96; BMI 31.1
--- NOTE | 2022-04-29 16:30 | PC.NURSE ---
PEPPER Ortez at BS
--- NOTE | 2022-04-29 16:39 | PC.NURSE ---
Dr. Saab at BS
[2022-04-29 16:42] VITALS: BP 101/44; PULSE 58; O2SAT 95
--- NOTE | 2022-04-29 16:43 | XR_ITS ---
PROCEDURE INFORMATION: Exam: XR Chest Exam date and time: 04/29/22 04:49 PM Age: 62 years old Clinical indication: Sternal or substernal pain; Patient HX: Smoker with chest pain; Additional info: Pneumonia vs covid TECHNIQUE: Imaging protocol: XR of the chest. Views: 1 view. COMPARISON: CT CHEST WO CON 04/13/22 03:49 PM FINDINGS: Lungs: Unremarkable. No consolidation. Pleural spaces: Unremarkable. No pleural effusion. No pneumothorax. Heart/Mediastinum: Right coronary stent in place. No cardiomegaly. Bones/joints: Unremarkable. IMPRESSION: No acute findings.
[2022-04-29 17:00] VITALS: BP 105/54; PULSE 58; O2SAT 94
[2022-04-29 17:30] VITALS: BP 111/51; PULSE 59; O2SAT 94
[2022-04-29 17:30] LABS: Influenza A, PCR Not Detected (NotDetected); Influenza B, PCR Not Detected (NotDetected)
[2022-04-29 17:33] LABS: Basophils # 0.3 K/mm3 (0-0.2); Basophils % 5.7 % (0.1-2.0); Eosinophils # 0.1 K/mm3 (0.0-0.4); Eosinophils % 0.9 % (0.1-12.0); Hematocrit 43.6 % (37.0-47.0); Hemoglobin 14.5 g/dL (12.2-16.2); Lymphocytes # 1.8 K/mm3 (0.7-4.5); Lymphocytes % 33.7 % (10-50); Mean Corpuscular HGB Conc 33.3 g/dL (31.8-35.4); Mean Corpuscular Hemoglobin 26.9 pg (27.0-31.2); Mean Corpuscular Volume 80.9 fl (81-99); Mean Platelet Volume 7.9 fl (7.4-10.4); Monocytes # 0.7 K/mm3 (0.1-1.0); Neutrophils # 2.8 K/mm3 (1.8-7.8); Neutrophils % 52.4 % (37.0-80.0); Platelet Count 315 K/mm3 (142-424); Red Blood Count 5.39 M/mm3 (4.20-5.40); Red Cell Distribution Width 15.5 % (11.5-17.5); White Blood Count 5.4 K/mm3 (4.8-10.8)
[2022-04-29 17:38] LABS: Chloride 102 mmol/L (98-107); Potassium 4.6 mmoL/L (3.5-5.1); Sodium 138 mmol/L (136-145)
[2022-04-29 17:41] LABS: Alanine Aminotransferase 23 U/L (12-78); Albumin Level 4.4 g/dl (3.5-5.0); Albumin/Globulin Ratio 1.4 (1.1-1.8); Alkaline Phosphatase 81 U/L (38-126); Anion Gap 14.6 mEq/L (5-15); Aspartate Amino Transferase 39 U/L (14-36); Bilirubin,Total 0.5 mg/dl (0.2-1.3); Blood Urea Nitrogen 13 mg/dl (7-17); Calcium 9.5 mg/dl (8.4-10.2); Carbon Dioxide 26 mmol/L (22.0-30.0); Creatinine Clearance Estimated 69 mL/min (50-200); Estimated Glomerular Filt Rate 56 ml/min (>60); GFR (African American) 68 ML/MIN (>60); Globulin 3.2 g/dL (1.3-3.2); Glucose 99 mg/dl (74-100); Total Protein,Serum 7.6 g/dl (6.3-8.2)
[2022-04-29 17:42] LABS: Lactic Acid 1.1 mmol/L (0.7-2.1)
[2022-04-29 17:51] LABS: Coronavirus 19, PCR Detected (NotDetected)
[2022-04-29 18:01] VITALS: BP 114/57; PULSE 58; O2SAT 99
--- NOTE | 2022-04-29 18:31 | HMH.EDGENADL ---
ED Disposition Clinical Impression: COVID-19 Disposition: Home, Self-Care Condition on Discharge: Fair Instructions: DI for COVID-19 (Suspected or Confirmed ) Referrals: Dante Santillan MD [Primary Care Provider] - - Critical Care Critical Care Time: No Attestation: On 04/29/22, the high probability of a clinically significant, sudden or life threatening deterioration of the following system(s) required my full and direct attention, intervention and personal management. The time I documented below is in addition to time spent performing reported procedures but includes the following listed in this critical care notation. Medical Decision Making - Medical Records Medical records reviewed: Yes: I reviewed the patient's medical records. - Marco A Inquiry Pt receiving controlled substance: No Vital Signs: 04/29/22 15:30 04/29/22 16:42 04/29/22 17:00 Temperature 98.4 F Temperature Source Oral Pulse Rate 58 L 58 L Pulse Rate [Right Radial] 61 Respiratory Rate 17 Blood Pressure 101/44 L 105/54 L Blood Pressure [Left Arm] 101/44 L Blood Pressure Mean 73 Blood Pressure Mean [Left Arm] 63 Blood Pressure Source [Left Arm] Automatic Cuff Blood Pressure Position Sitting Blood Pressure Position [Left Arm] Sitting 02 Sat by Pulse Oximetry 96 95 94 L Oxygen Delivery Method Room Air Room Air Room Air 04/29/22 17:30 04/29/22 18:01 Temperature Temperature Source Pulse Rate 59 L 58 L Pulse Rate [Right Radial] Respiratory Rate Blood Pressure 111/51 L 114/57 L Blood Pressure [Left Arm] Blood Pressure Mean 75 72 Blood Pressure Mean [Left Arm] Blood Pressure Source [Left Arm] Blood Pressure Position Blood Pressure Position [Left Arm] 02 Sat by Pulse Oximetry 94 L 99 Oxygen Delivery Method Room Air - Lab Data Lab results reviewed: Yes: I reviewed the patient's lab results. Lab Results 04/29/22 17:12: WBC 5.4, RBC 5.39, Hgb 14.5, Hct 43.6, MCV 80.9 L, MCH 26.9 L, MCHC 33.3, RDW 15.5, Plt Count 315, MPV 7.9, Neut % (Auto) 52.4, Lymph % (Auto) 33.7, [place] % (Auto) 13.0 H, Eos % (Auto) 0.9, Baso % (Auto) 5.7 H, Neut # (Auto) 2.8, Lymph # (Auto) 1.8, [place] # (Auto) 0.7, Eos # (Auto) 0.1, Baso # (Auto) 0.3 H 04/29/22 17:12: Sodium 138, Potassium 4.6, Chloride 102, Carbon Dioxide 26, Anion Gap 14.6, BUN 13, Creatinine 1.00, Estimated Creat Clear 69, Estimated GFR 56 L, Est GFR ( Amer) 68, Glucose 99, Calcium 9.5, Total Bilirubin 0.5, AST 39 H, ALT 23, Alkaline Phosphatase 81, Total Protein 7.6, Albumin 4.4, Globulin 3.2, Albumin/Globulin Ratio 1.4 04/29/22 17:12: Lactate 1.1 04/29/22 17:12: SARS-CoV-2 (PCR) Detected A, Influenza A Untype (PCR) Not detected, Influenza Type B (PCR) Not detected Result diagrams: 04/29/22 17:12 04/29/22 17:12 Orders (Tests/Meds): ED MEDICATIONS Generic Name Dose Route Start Last Admin Trade Name Freq PRN Reason Stop Dose Admin Lactated Ringer's 1,000 mls @ 999 mls/hr 04/29/22 16:45 04/29/22 17:35 Lactated Ringer's 1000 Ml Bag IV 04/29/22 17:45 999 mls/hr .Q1H1M ALEE Administration Discontinued Medications Generic Name Dose Route Start Last Admin Trade Name Freq PRN Reason Stop Dose Admin Ketorolac Tromethamine 15 mg 04/29/22 16:43 04/29/22 17:35 Ketorolac 30mg/Ml Vial IV 04/29/22 16:44 15 mg ONCE ONE Administration Ondansetron HCl 4 mg 04/29/22 16:43 04/29/22 17:35 Ondansetron 4mg/2ml Vial IV 04/29/22 16:44 4 mg ONCE ONE Administration Medical Decision Narrative: Is a 62-year-old female presenting to the emergency department with body aches, fatigue, cough, shortness of air. Differential diagnosis with patient includes pneumonia, COPD exacerbation, pneumothorax, COVID, influenza among others. Given this plan to swab patient, order CBC, CMP, chest x-ray. Patient had a low diastolic BP, given this patient was given 1 L of fluids. She was also given medications for headache, fever. Reas
[2022-04-29 18:55] VITALS: BP 112/55; PULSE 56; RESP 16; TEMP 36.7; O2SAT 97
== END 2022-04-29 18:56 | disposition home or self-care (01) ==
PROVIDERS: Emergency Provider Emergency Medicine; PCP Emergency Medicine
DX: U07.1 COVID-19 (principal)
CPT/HCPCS: 71045; 80053; 83605; 85025; 96374; 96375; 99284; C9803; J2405; U0003; U0005

== ENCOUNTER → 2022-06-10 08:43 | Outpatient (CLI) | payer MEDICARE, MEDICAID, SELFPAY ==
--- NOTE | 2022-06-10 08:50 | US_ITS ---
FINAL REPORT CLINICAL HISTORY: LT PAROTID MASS-- fna -- ruben caban FINDINGS: Ultrasound guided parotid biopsy. HISTORY: left parotid mass. Attending radiologist: Dr. Carlos Physician Cement Truck Loader: Ruben Martin PA-C PROCEDURE: After informed consent was obtained and a time-out was performed, the patient was prepped and draped in usual sterile fashion over the left neck. Utilizing local anesthesia and sterile technique with a 25-gauge needle, access to lesion was obtained. A total of 4 passes were made. The patient received no conscious sedation. The patient tolerated procedure well and left the department in good condition. IMPRESSION: Status post ultrasound guided biopsy of left parotid mass without immediate complication. Films reviewed , interpreted and dictated by Dr. Carlos. Transcribed by Ruben Martin PA-C. Reviewed, Interpreted and Dictated by Wu Carlos III, MD Transcribed by ARIANA Fermin Authenticated and [facility]
== END ==
PROVIDERS: PCP Emergency Medicine; Visit Provider Student in an Organized Health Care Education/Training Program
DX: K11.8 Other diseases of salivary glands (principal); D37.030 Neoplasm of uncertain behavior of the parotid salivary glands
CPT/HCPCS: 10005; 76536; 88173

== ENCOUNTER → 2022-07-08 13:32 | Outpatient (CLI) | payer MEDICARE, MEDICAID, SELFPAY ==
[2022-07-08 15:26] LABS: Alanine Aminotransferase 73 U/L (12-78); Albumin Level 4.1 g/dl (3.5-5.0); Albumin/Globulin Ratio 1.4 (1.1-1.8); Alkaline Phosphatase 199 U/L (38-126); Anion Gap 12.5 mEq/L (5-15); Aspartate Amino Transferase 71 U/L (14-36); Bilirubin,Total 0.2 mg/dl (0.2-1.3); Blood Urea Nitrogen 17 mg/dl (7-17); Calcium 9.7 mg/dl (8.4-10.2); Carbon Dioxide 26 mmol/L (22.0-30.0); Chloride 101 mmol/L (98-107); Cholesterol 173 mg/dl (140-200); Estimated Glomerular Filt Rate 50 ml/min (>60); GFR (African American) 61 ML/MIN (>60); Globulin 2.9 g/dL (1.3-3.2); Glucose 105 mg/dl (74-100); HDL Cholesterol 43 mg/dl (40-60); Potassium 4.5 mmoL/L (3.5-5.1); Sodium 135 mmol/L (136-145); Triglycerides 202 mg/dl (30-150); VLDL Cholesterol 40 mg/dL (0-40)
[2022-07-10 10:07] LABS: Direct LDL Cholesterol 81 mg/dL (100-129)
== END ==
PROVIDERS: PCP Emergency Medicine; Visit Provider Emergency Medicine
DX: R53.83 Other fatigue (principal); R74.8 Abnormal levels of other serum enzymes
CPT/HCPCS: 36415; 80053; 80061

== ENCOUNTER → 2022-07-21 12:49 | Outpatient (CLI) | payer MEDICARE, MEDICAID, SELFPAY ==
--- NOTE | 2022-07-21 | ECG_ITS ---
APPROVED REPORT Exam: Resting ECG HR:65 bpm ECG Measurements Heart Rate 65 AXES NE 127 P 28 QRSd 90 QRS 24 QT 394 T 57 QTc 406 Conclusion SINUS RHYTHM NORMAL ECG UNCONFIRMED REPORT Electronically signed by : Valentino Hernandez MD 07/21/2022 16:46:00
[2022-07-21 13:30] LABS: MANUAL DIFFERENTIAL MANUAL DIFFERENTIAL (MANUAL DIFF)
[2022-07-21 15:25] LABS: Basophils # 0.1 K/mm3 (0-0.2); Eosinophils # 0.2 K/mm3 (0.0-0.4); Eosinophils % 2.3 % (0.1-12.0); Hematocrit 42.8 % (37.0-47.0); Hemoglobin 13.3 g/dL (12.2-16.2); Lymphocytes # 2.3 K/mm3 (0.7-4.5); Lymphocytes % 26.1 % (10-50); Mean Corpuscular HGB Conc 31.1 g/dL (31.8-35.4); Mean Corpuscular Hemoglobin 26.1 pg (27.0-31.2); Mean Corpuscular Volume 83.7 fl (81-99); Mean Platelet Volume 7.5 fl (7.4-10.4); Monocytes # 0.4 K/mm3 (0.1-1.0); Monocytes % 4.7 % (1.7-9.3); Neutrophils # 5.8 K/mm3 (1.8-7.8); Neutrophils % 65.9 % (37.0-80.0); Platelet Count 440 K/mm3 (142-424); Red Blood Count 5.12 M/mm3 (4.20-5.40); Red Cell Distribution Width 15.2 % (11.5-17.5); White Blood Count 8.9 K/mm3 (4.8-10.8)
[2022-07-21 15:44] LABS: Alanine Aminotransferase 16 U/L (12-78); Albumin Level 3.6 g/dl (3.5-5.0); Albumin/Globulin Ratio 1.4 (1.1-1.8); Alkaline Phosphatase 109 U/L (38-126); Anion Gap 10.4 mEq/L (5-15); Aspartate Amino Transferase 23 U/L (14-36); Blood Urea Nitrogen 10 mg/dl (7-17); Carbon Dioxide 29 mmol/L (22.0-30.0); Chloride 102 mmol/L (98-107); Estimated Glomerular Filt Rate 50 ml/min (>60); GFR (African American) 61 ML/MIN (>60); Globulin 2.6 g/dL (1.3-3.2); Glucose 94 mg/dl (74-100); Potassium 4.4 mmoL/L (3.5-5.1); Sodium 137 mmol/L (136-145); Total Protein,Serum 6.2 g/dl (6.3-8.2)
[2022-07-21 16:00] LABS: Bilirubin,Total < 0.1 mg/dl (0.2-1.3)
[2022-07-21 17:11] LABS: Eosinophils % 1 % (0-3); Hypochromasia 1+; Lymphocytes % 23 % (10-50); Neutrophils % 76 % (42-76); Total Cells Counted 100
[2022-07-21 17:12] LABS: Ovalocytes 1+
[2022-07-21 17:13] LABS: Tear Drop Cells 1+
[2022-07-21 18:07] LABS: Platelet Estimate Normal
[2022-08-05 09:51] LABS: Hep A Ab, IgM NEGATIVE; Hepatitis B Core Antibody IgM NEGATIVE; Hepatitis B Surface Antigen NEGATIVE; Hepatitis C Antibody 0.1
== END ==
PROVIDERS: PCP Emergency Medicine; Visit Provider Student in an Organized Health Care Education/Training Program
DX: D10.39 Benign neoplasm of other parts of mouth (principal); R10.9 Unspecified abdominal pain; R74.8 Abnormal levels of other serum enzymes; Z01.818 Encounter for other preprocedural examination; Z20.822 Contact with and (suspected) exposure to COVID-19
CPT/HCPCS: 36415; 80053; 80074; 85007; 85014; 85018; 85048; 85049; 88307; 93005; C9803; U0003; U0005

== ENCOUNTER 2022-07-22 06:01 | Day surgery (SDC) | payer MEDICARE, MEDICAID, SELFPAY ==
[2022-07-21 08:58] VITALS: BMI 29.2
[2022-07-22] VITALS (9 sets, daily range): BP systolic 113–143; BP diastolic 63–74; PULSE 82–97; RESP 14–19; TEMP 33.3–36.7; O2SAT 92–98
--- NOTE | 2022-07-22 07:25 | P.PN_ITS ---
PFSH PFS Medical History Anxiety Atypical angina CAD (coronary artery disease) Claudication Claudication COPD (chronic obstructive pulmonary disease) Depression Dyspnea Fatigue HHD (hypertensive heart disease) History of gastroesophageal reflux (GERD) History of left heart catheterization (LHC) HLD (hyperlipidemia) Migraine Osteoarthritis Osteoporosis PAD (peripheral artery disease) Pre-op evaluation Pulmonary HTN SOB (shortness of breath) Tobacco abuse Surgical History History of cholecystectomy History of hysterectomy History of intravascular stent placement Family History Other Family history of diabetes mellitus type II Family history of hypertension Family history of myocardial infarction Lung cancer Social History Smoking Status: Current every day smoker tobacco type: cigarettes packs per day: 1 second hand exposure: Yes alcohol intake: never substance use type: denies use current occupational status: retired housing: house current occupational exposures/hazards: No caffeine: Yes [facility] Anesthesia Checklist Patient Identification Patient Identification: Arm Band and Verbal (Name & ) Structural Data Admitted From: Home Planned Operative Procedure/s: L. parotidectomy Consent for Planned Operative Procedure(s) Verified: Yes NPO Status Verified Time NPO: 00:00 Chart Verification Results Verified: CBC, BMP and ECG Additional verifications Anesthesia Reactions: No Hx Blood Transfusions: No Blood Transfusion Reaction: No Airway Assessment C-Spine Mobility Assessed: Yes TMJ Mobility Assessed: Yes Dentition: Edentulous Neurological Assessment Level of Consciousness: Awake Hx Seizures: No Numbness or tingling in extremities: No Anesthesia Plan Anesthesia Risk discussed: Yes Anesthesia Plan: Verified ASA Class: III Anesthesia Type: General
--- NOTE | 2022-07-22 09:07 | SUR.OPER ---
LATE ENTRY [id number] family given update via Kevin Amaya RN
--- NOTE | 2022-07-22 09:41 | SUR.OPER ---
0941 family given an update via Jaki Frazier RN
--- NOTE | 2022-07-22 11:02 | EXP.ANES.I ---
[facility] Anesthesia Record Part I Anesthesia Record I Intake, IV Amount: 1,200 Estimated blood loss (mL): 25 Urine output (mL): 0 Blood Pressure: 143/74 SaO2: 98 Pulse Rate: 97 Respiratory Rate: 19 Temperature: 97.3 F Patient is:: Drowsy Stable to PACU at:: 11:00
--- NOTE | 2022-07-22 11:07 | EXP.OP.NOTE ---
Date of procedure: 07/22/22 Pre-op Diagnosis:: left parotid mass Post-op Diagnosis:: same Procedure performed:: left superficial parotidectomy with facial nerve dissection Surgeon:: Sulaiman Mathew MD Anesthesia: GETAngelo Estimated blood loss (mL): 25 Operative findings:: left superficial parotid mass Operative note:: The patient was brought to the OR and laid in supine position and general anesthesia was induced. The patient was prepped and draped in the usual fashion. The facial nerve monitor was set up and confirmed to be working appropriately. Lidocaine with epinephrine 1:100,000 was injected along a modified Anish incision site. I then dissected down through the skin and subcutaneous tissues. I identified inferiorly the sternocleidomastoid muscle and unsheathed this off the inferior aspect of the parotid capsule from the muscle. I was able to identify the digastric muscle and traced it anteriorly again seperating off the overlying parotid capsule. I dissected the parotid off the external auditory canal and then began to meticulously dissect through the tissue along the tympanomastoid suture line. I ultimately was able to identify the main trunk of the facial nerve. I began to trace the facial nerve anteriorly. I first came along a buccal nerve branch which appeared to be going just superior the palble mass in the gland. I divided the parotid over top of the nerve. I then began to roll the mass inferiorly, dissecting along progressively more inferior branches of the nerve, including the main inferior branch. Once these were protected the inferior half of the parotid along with the mass were excised from the neck. At this time, the patient's neck was thoroughly irrigated and suctioned out. Hemostasis was achieved with bipolar cautery. The nerve main trunk as well as all the distal branches stimulated appropriately at the end of the case. A 15-Dominican drain was fashioned in the patient's neck. His neck incision was then closed in 2 layers. They were then turned back over to anesthesia to be awoken and extubated. Condition: stable Disposition: PACU Complications:: none
--- NOTE | 2022-07-22 11:31 | SUR.PHASEI ---
1129- detailed report given to ayde werner in post op. 1130- pt transported in stable condition to post op with ayde werner
--- NOTE | 2022-07-23 07:45 | EXP.ANES.II ---
[facility] Anesthesia Record Part II Anesthesia Record Part II Discharge Time: 11:30 Destination: Surgical Day Care (OP Surgery) PACU nurse assessment reviewed?: Yes Patient Condition:: Good Anesthesia Complications:: None Swallowing reflex intact?: Yes Cyanosis?: No Blood Pressure: 123/70 Pulse Rate: 88 Temperature: 98.1 F Mental Status: Alert & Oriented Pain level:: 0 Nausea and/or vomitting:: None Intake, IV Amount: 0
[2022-07-23 07:47] VITALS: BP 123/70; PULSE 88; TEMP 36.7
== END 2022-07-22 12:20 | disposition home or self-care (01) ==
PROVIDERS: PCP Emergency Medicine; Visit Provider Student in an Organized Health Care Education/Training Program
PROC: (CPT 42410; principal; 2022-07-22 07:30)
DX: D11.0 Benign neoplasm of parotid gland (principal); Z72.0 Tobacco use; Z79.899 Other long term (current) drug therapy
CPT/HCPCS: 42420; 96374; J0330; J2405

== ENCOUNTER → 2022-07-24 08:33 | Outpatient (CLI) | payer MEDICARE, MEDICAID, SELFPAY ==
[2022-07-24 08:45] VITALS: BP 138/76; PULSE 68; RESP 18; TEMP 36.3
--- NOTE | 2022-07-24 09:02 | PC.NURSE ---
0855- Pt presents today for VERA drain removal. Son at bedside. Drain removed without difficulty. approx 10ml noterd in bulb. drewssing applied over site. No s/s of infection of bleeding noted. pt disharged to care of son. L.King messer
[2022-07-24 09:19] VITALS: TEMP 36.3
== END ==
PROVIDERS: PCP Emergency Medicine; Visit Provider Student in an Organized Health Care Education/Training Program
DX: Z48.03 Encounter for change or removal of drains (principal)
CPT/HCPCS: G0463

== ENCOUNTER → 2022-10-13 14:39 | Outpatient (POV) | payer MEDICARE, MEDICAID, SELFPAY | PROVIDERS: Visit Provider Dermatology | DX: Z00.00 Encounter for general adult medical examination without abnormal findings (principal) ==

== ENCOUNTER → 2022-10-30 13:00 | Outpatient (CLI) | payer MEDICARE, MEDICAID, SELFPAY ==
--- NOTE | 2022-10-30 13:00 | MM_ITS ---
PROCEDURE INFORMATION: Exam: MG Bilateral Screening 3D Mammography Exam date and time: 10/30/2022 12:58 PM Age: 62 years old Clinical indication: Screening. No family history of breast cancer. TECHNIQUE: Imaging protocol: Bilateral Screening tomosynthesis and 2D mammography including computer-aided detection (CAD) when performed. COMPARISON: 1. MG MM DIG SCREENING MAMM BI W/CAD 05/06/2020 4:53 PM 2. MG DMSB DIG MAMM-SCREEN JASS W/CAD 06/09/2017 10:59 AM 3. MG DMSB DIG MAMM-SCREEN JASS 06/01/2016 3:33 PM 4. MG DMSB DIG MAMM-SCREEN JASS 02/22/2015 10:05 AM FINDINGS: MAMMOGRAPHY: Breast composition: There are scattered areas of fibroglandular density. Mass: None. Architectural distortion: None. Calcifications: No suspicious calcifications. Asymmetric density: None. Skin thickening: None. Axillary adenopathy: None. IMPRESSION: No mammographic evidence of malignancy. Annual screening is recommended unless otherwise clinically indicated. ASSESSMENT: BI-RADS Category 1: Negative
== END ==
PROVIDERS: PCP Emergency Medicine; Visit Provider Emergency Medicine
DX: Z12.31 Encounter for screening mammogram for malignant neoplasm of breast (principal)
CPT/HCPCS: 77063; 77067

== ENCOUNTER → 2022-11-30 10:24 | Outpatient (CLI) | payer MEDICARE, MEDICAID, SELFPAY ==
[2022-12-01 09:22] LABS: Coronavirus 19, PCR Not Detected (NotDetected); Influenza A, PCR Not Detected (NotDetected); Influenza B, PCR Not Detected (NotDetected)
== END ==
PROVIDERS: PCP Emergency Medicine; Visit Provider Emergency Medicine
DX: J98.8 Other specified respiratory disorders (principal)
CPT/HCPCS: C9803; U0003; U0005

== ENCOUNTER → 2022-12-08 08:15 | Outpatient (POV) | payer MEDICARE, MEDICAID, SELFPAY | PROVIDERS: Visit Provider Dermatology | DX: Z00.00 Encounter for general adult medical examination without abnormal findings (principal) ==

== ENCOUNTER 2022-12-15 15:51 | Emergency (ER) | payer MEDICARE, MEDICAID, SELFPAY ==
[2022-12-15 16:15] VITALS: RESP 20; TEMP 36.9; O2SAT 98; BMI 29.2
--- NOTE | 2022-12-15 16:23 | EXP.UTC ---
Discharge Plan Disposition Patient Disposition: Home, Self-Care Condition: Good Prescriptions Prescriptions: New prednisone 10 mg tablet 10 mg PO DIRECTED 9 Days Qty: 21 0RF Rx Instructions: Take 4 tablets daily for 3 days, then take 2 tablets daily for 3 days, then take 1 tablet daily for 3 days, then stop. benzonatate [benzonatate] 100 mg capsule 100 mg PO TIDP PRN (Reason: Cough) Qty: 30 0RF amoxicillin-pot clavulanate 875-125 mg Tablet 1 tab PO Q12H Qty: 20 0RF No Action Alphagan P 0.1 % drops 0.1 drp OP DAILY doxycycline hyclate 100 mg capsule 100 mg PO BID Qty: 20 0RF Rx Instructions: take 1 capsule by mouth twice daily, for 10 days [id number] [Fioricet] 50-300-40 mg capsule 1 cap PO Q6H PRN (Reason: pain) Qty: 120 1RF zolpidem 10 mg tablet 10 mg PO HSP PRN (Reason: insomnia) Qty: 30 1RF hydrocodone-acetaminophen 5-325 mg tablet 1 tab PO TID PRN (Reason: pain) Qty: 90 0RF diphenoxylate-atropine [Lomotil] 2.5-0.025 mg tablet 1 tab PO TID PRN (Reason: diarrhea) Qty: 9 0RF albuterol sulfate 90 mcg/actuation HFA aerosol inhaler 2 puff IH Q4HP PRN (Reason: shortness of breath or wheezing) Qty: 8.5 0RF atorvastatin [Lipitor] 80 mg tablet 80 mg PO DAILY Qty: 90 0RF budesonide-formoterol 160-4.5 mcg/actuation HFA aerosol inhaler 2 puff IH BID Qty: 10.2 0RF cholecalciferol (vitamin D3) 1,250 mcg (50,000 unit) capsule 1,250 mcg PO WEEKLY Qty: 12 0RF cholecalciferol (vitamin D3) 25 mcg (1,000 unit) capsule 25 mcg PO DAILY Qty: 90 0RF clopidogrel 75 mg tablet See Rx Instructions .ROUTE .COMPLEX Qty: 90 0RF Rx Instructions: take 1 tablet by mouth DAILY for PLATELET INHIBITOR furosemide 40 mg tablet 40 mg PO DAILY Qty: 90 0RF ipratropium-albuterol 0.5 mg-3 mg(2.5 mg base)/3 mL solution for nebulization 3 ml INHALATION QID Qty: 180 0RF metoclopramide HCl 10 mg tablet See Rx Instructions .ROUTE .COMPLEX Qty: 120 0RF Rx Instructions: TAKE ONE TABLET BY MOUTH FOUR TIMES DAILY FOR STOMACH nitroglycerin [Nitrostat] 0.4 mg tablet, sublingual 0.4 mg SUBLINGUAL Q5M PRN (Reason: chest pain) Qty: 20 0RF Rx Instructions: do not exceed 3 doses per episode ramipril 2.5 mg capsule 2.5 mg PO DAILY Qty: 90 3RF spironolactone 25 mg tablet 25 mg PO DAILY Qty: 90 0RF Leqvio 284 mg/1.5 mL syringe 284 mg SQ [id number] Qty: 1.5 3RF Rx Instructions: First injection now then repeat injection in 3 months then repeat injection every 6 months indefinite. Leqvio 284 mg/1.5 mL syringe 284 mg SQ [id number] Qty: 1.5 3RF Rx Instructions: First injection now Repeat injection 3 months Repeat injection every 6 months fluconazole 150 mg tablet 150 mg PO Q3D Qty: 2 0RF omeprazole 40 mg capsule,delayed release(DR/EC) See Rx Instructions .ROUTE .COMPLEX Qty: 30 3RF Dose Instruction: Take 1 capsule by mouth once a day as directed Rx Instructions: Take 1 capsule by mouth once a day as directed sertraline 100 mg tablet See Rx Instructions .ROUTE .COMPLEX Qty: 90 0RF Dose Instruction: TAKE ONE TABLET BY MOUTH DAILY Rx Instructions: TAKE ONE TABLET BY MOUTH DAILY Referrals Follow up/Referrals: Dante Santillan MD [Primary Care Provider] - See instructions Activity Restrictions/Add. Instructions Additional Instructions/Restrictions: Drink plenty of fluids. Take tylenol or ibuprofen for pain or fever. Take the medications as directed. Follow up with your regular doctor. GO TO THE ER FOR ANY WORSENING SYMPTOMS Don't start the oral steroids until tomorrow, since you had the shot here today. Clinical Impressions Clinical Impression: Sinusitis, COPD exacerbation Instructions Patient Instructions: DI for Chronic Obstructive Pulmonary Disease, DI for Sinusitis Discharge ED Provider: Emmett
[2022-12-15 17:36] VITALS: BP 106/57; PULSE 63; RESP 20; TEMP 36.9; O2SAT 98
== END 2022-12-15 17:36 | disposition home or self-care (01) ==
PROVIDERS: Emergency Provider Nurse Practitioner Family; PCP Emergency Medicine
DX: J44.1 Chronic obstructive pulmonary disease with (acute) exacerbation (principal); J32.9 Chronic sinusitis, unspecified
CPT/HCPCS: 96372; 99212; 99214; G0463; J0696

== ENCOUNTER 2023-02-09 09:02 | Day surgery (SDC) | payer MEDICARE, MEDICAID, SELFPAY ==
[2023-02-05 14:30] VITALS: BMI 30.2
[2023-02-09 09:19] VITALS: BP 146/59; PULSE 76; RESP 18; TEMP 36.3; O2SAT 97
--- NOTE | 2023-02-09 09:33 | P.PN_ITS ---
[facility] Disclaimer: The information contained in this section may have been updated after the patient was seen, as this information can be updated by other users. Medical History Anxiety Atypical angina Benign parotid tumor CAD (coronary artery disease) Claudication Claudication COPD (chronic obstructive pulmonary disease) Depression Dyspnea Encounter for postoperative care Fatigue HHD (hypertensive heart disease) History of gastroesophageal reflux (GERD) History of left heart catheterization (LHC) HLD (hyperlipidemia) Migraine Nasal congestion Nasal drainage Osteoarthritis Osteoporosis PAD (peripheral artery disease) Pleomorphic adenoma of parotid gland Pre-op evaluation Pulmonary HTN SOB (shortness of breath) Tobacco abuse Surgical History History of cholecystectomy History of hysterectomy History of intravascular stent placement Family History Other Family history of diabetes mellitus type II Family history of hypertension Family history of myocardial infarction Lung cancer Social History Smoking Status: Current every day smoker tobacco type: cigarettes packs per day: 1 second hand exposure: Yes alcohol intake: never substance use type: denies use current occupational status: disabled Travel in the last 8 weeks: None household members: none housing: house lives independently: Yes marital status: single education level: high school current occupational exposures/hazards: No caffeine: Yes special yarelis needs: No agree to transfusion: No do you feel safe at home: Yes victim of physical abuse: No victim of emotional abuse: No victim of sexual abuse: No would you like helpful sources: No [facility] Anesthesia Checklist Patient Identification Patient Identification: Arm Band Structural Data Admitted From: Home Planned Operative Procedure/s: EGD Consent for Planned Operative Procedure(s) Verified: Yes Verified Documents: Surgical Consent and History and Physical NPO Status Verified Time NPO: 00:00 Additional verifications Anesthesia Reactions: No Hx Blood Transfusions: No Blood Transfusion Reaction: No Airway Assessment C-Spine Mobility Assessed: Yes TMJ Mobility Assessed: Yes Dentition: Edentulous Neurological Assessment Level of Consciousness: Awake and Alert Anesthesia Plan Anesthesia Risk discussed: Yes Anesthesia Plan: Verified ASA Class: III Anesthesia Type: MAC
[2023-02-09 09:34] VITALS: O2SAT 97
--- NOTE | 2023-02-09 09:51 | HMH.SCOPE ---
Procedure: Date: 02/09/23 Patient Date of :: 1960 Procedure Performed:: Esophagogastroduodenoscopy with biopsy Indications:: Dysphagia Gastroesophageal reflux Performing Provider:: Jean-Paul Blair MD Referring Provider:: . Sedation:: Monitored anesthesia care Procedure:: After informed consent was obtained the patient was taken to the endoscopy suite. Sedation ensued after the patient was transferred to the left lateral decubitus position. Pulse, blood pressure, and oxygen saturation were monitored throughout the procedure. The endoscope was advanced beyond the duodenal bulb. Retroflexion within the gastric lumen was accomplished. The gastroscope was carefully removed and the patient was transferred to recovery in stable condition. Please see findings and specimens below for detail. Findings:: Gastroesophageal junction at 35 cm Shallow esophageal diverticulum at 30 cm Small sliding hiatal hernia Moderate patchy distal gastritis Specimens:: Antral biopsy Recommendations:: Follow-up pathology Will discuss benefits of barium swallow and/or modified barium swallow at return appointment May benefit from gastric emptying scan May benefit from UGI/SBFT Complications:: No immediate Estimated blood obtained (mL): 1
[2023-02-09 09:52] VITALS: BP 82/58; PULSE 69; RESP 14; TEMP 36.3; O2SAT 93
[2023-02-09 10:02] VITALS: BP 103/59; PULSE 69; RESP 17; O2SAT 93
[2023-02-09 10:12] VITALS: BP 109/67; PULSE 70; RESP 17; O2SAT 99
[2023-02-09 10:22] VITALS: BP 132/82; PULSE 69; RESP 16; TEMP 36.6; O2SAT 100
== END 2023-02-09 10:25 | disposition home or self-care (01) ==
PROVIDERS: PCP Emergency Medicine; Visit Provider Surgery
PROC: 0DJ08ZZ Inspection of Upper Intestinal Tract, Via Natural or Artificial Opening Endoscopic (ICD-10-PCS; CPT 43235; principal; 2023-02-09 10:00)
DX: R10.13 Epigastric pain (principal); K21.9 Gastro-esophageal reflux disease without esophagitis; K44.9 Diaphragmatic hernia without obstruction or gangrene; K29.70 Gastritis, unspecified, without bleeding; F17.210 Nicotine dependence, cigarettes, uncomplicated; Z79.899 Other long term (current) drug therapy
CPT/HCPCS: 43239; 88305

== ENCOUNTER → 2023-02-22 10:58 | Outpatient (CLI) | payer MEDICARE, MEDICAID, SELFPAY ==
--- NOTE | 2023-02-22 10:59 | FL_ITS ---
FINAL REPORT CLINICAL HISTORY: dysphagia, FT: 1:01 FINDINGS: BARIUM SWALLOW HISTORY: Dysphagia, epigastric pain. TECHNIQUE: Patient ingested thick and thin barium contrast. Effervescent crystals were also administered. Spot and overhead films were performed. 36 images were saved. FINDINGS: There is a small sliding type hiatal hernia. Esophageal motility is normal. No episodes of gastroesophageal reflux observed. 13 mm barium tablet is delayed in the hiatal hernia and does not pass during the exam. FLUOROSCOPY TIME: 1 minute, 1 second IMPRESSION: Small sliding type hiatal hernia. Tablet delayed in hiatal hernia and does not pass during the exam. Correlate with upper endoscopy. Reviewed, Interpreted and Dictated by Jasen Montano MD Transcribed by Bisi Gagnon PA-C Authenticated and [facility]
== END ==
PROVIDERS: PCP Emergency Medicine; Visit Provider Surgery
DX: R13.10 Dysphagia, unspecified (principal)
CPT/HCPCS: 74220

== ENCOUNTER → 2023-03-05 11:56 | Outpatient (CLI) | payer MEDICARE, MEDICAID, SELFPAY | PROVIDERS: PCP Emergency Medicine; Visit Provider Nurse Practitioner Family | DX: R06.00 Dyspnea, unspecified; I20.8 Other forms of angina pectoris | CPT/HCPCS: 78452; 93017; 93306; A9502; J2785 ==

== ENCOUNTER → 2023-03-23 09:35 | Outpatient (CLI) | payer MEDICARE, MEDICAID, SELFPAY ==
--- NOTE | 2023-03-23 09:35 | CT_ITS ---
FINAL REPORT TECHNIQUE: Axial images were obtained through the chest without contrast. This study was performed with techniques to keep radiation doses as low as reasonably achievable (ALARA). Individualized dose reduction techniques using automated exposure control or adjustment of mA and/or kV according to the patient's size were employed. CLINICAL HISTORY: F/U COMPARISON: 04/13/2022 FINDINGS: There is a precarinal lymph node measuring 1.4 cm which contains mild internal calcification. Calcified left hilar lymph nodes The heart size is normal. There is no pericardial or pleural effusion. There are changes of centrilobular emphysema. There is a bilobed noncalcified spiculated mass in the right lower lobe measuring 2.5 cm on coronal images, previously measured 2.1 cm. There is a tiny noncalcified nodule in the periphery of the right lower lobe which is stable. Finding is best seen on image 181 of series 3. IMPRESSION: Bilobed spiculated mass in the right lower lobe highly concerning for neoplasia. Recommend PET-CT and or tissue sampling. Reviewed, Interpreted and Dictated by Jasen Montano MD Transcribed by Ghada Kaur Authenticated and [facility]
--- NOTE | 2023-03-23 11:07 | PC.NURSE ---
PFT and 6 Minute Walk Test completed without incident. Albuterol 0.083% given, via HHN, per protocol, Pt tolerated tx well.
== END ==
PROVIDERS: PCP Emergency Medicine; Visit Provider Internal Medicine Pulmonary Disease
DX: R91.8 Other nonspecific abnormal finding of lung field (principal); R06.09 Other forms of dyspnea; Z87.891 Personal history of nicotine dependence
CPT/HCPCS: 71250; 94060; 94618; 94726; 94729

== ENCOUNTER → 2023-03-26 08:05 | Outpatient (CLI) | payer MEDICARE, MEDICAID, SELFPAY ==
--- NOTE | 2023-03-26 08:05 | FL_ITS ---
FINAL REPORT CLINICAL HISTORY: .Nausea 2:07 fluoro time FINDINGS: AIR CONTRAST UPPER GI HISTORY: Epigastric pain, nausea. TECHNIQUE: The patient ingested thick and thin barium contrast. Effervescent crystals were also administered. Spot and overhead films were performed. A total of 36 images were saved. FINDINGS: The esophagus demonstrates no morphologic abnormalities. No mucosal defects are seen and motility appears normal. The stomach is of normal size, shape and position. No gastric filling defects are seen. The duodenal bulb is unremarkable. There is a small duodenal diverticulum identified near the junction of the second and third portions of the duodenum. There is gastroesophageal reflux to the distal esophagus. 13 mm barium tablet passes easily through the esophagus and into the stomach. Patient was also scheduled for a small bowel follow-through, but was unable to drink sufficient contrast to perform that examination. Motor Assembler film for the small bowel demonstrated surgical clips in the right upper quadrant, consistent with prior cholecystectomy. FLUROSCOPY TIME: 2 minutes 7 seconds. IMPRESSION: Mild gastroesophageal reflux disease. Small duodenal diverticulum. Otherwise, unremarkable upper GI series. Unable to perform small bowel follow-through due to the patient's inability to drink a sufficient amount of contrast. Reviewed, Interpreted and Dictated by Jasen Montano MD Transcribed by Bisi Gagnon PA-C Authenticated and . [facility]
== END ==
PROVIDERS: PCP Emergency Medicine; Visit Provider Surgery
DX: R11.0 Nausea (principal)
CPT/HCPCS: 74246

== ENCOUNTER → 2023-04-07 10:03 | Outpatient (CLI) | payer MEDICARE, MEDICAID, SELFPAY ==
--- NOTE | 2023-04-07 10:03 | NM_ITS ---
FINAL REPORT CLINICAL HISTORY: nausea 10:20 am .56 [facility] tc sulfur colloid injected into 2 whole eggs and a piece of toast with butter 6 oz cup of water FINDINGS: Sequential anterior and posterior projection images of the stomach were obtained after the ingestion of a meal radiolabeled with 0.56 mCi technetium 99m sulfur colloid. The one half time of gastric emptying is 124 minutes. There is 36% retention at 177 minutes. IMPRESSION: Slightly long one half time of gastric emptying of 124 minutes. This is consistent with mild gastric retention. Authenticated and ERN
== END ==
PROVIDERS: PCP Emergency Medicine; Visit Provider Surgery
DX: R11.0 Nausea (principal)
CPT/HCPCS: 78264; A9541

== ENCOUNTER → 2023-05-14 23:34 | Outpatient (CLI) | payer MEDICARE, MEDICAID, SELFPAY ==
[2023-05-14 18:34] LABS: Basophils % 0.6 % (0.1-2.0); Eosinophils # 0.2 K/mm3 (0.0-0.4); Eosinophils % 3.4 % (0.1-12.0); Hematocrit 39.1 % (37.0-47.0); Hemoglobin 12.6 g/dL (12.2-16.2); Lymphocytes # 1.6 K/mm3 (0.7-4.5); Lymphocytes % 22.7 % (10-50); Mean Corpuscular HGB Conc 32.3 g/dL (31.8-35.4); Mean Corpuscular Hemoglobin 25.9 pg (27.0-31.2); Mean Corpuscular Volume 80.2 fl (81-99); Mean Platelet Volume 7.7 fl (7.4-10.4); Monocytes # 0.4 K/mm3 (0.1-1.0); Monocytes % 5.3 % (1.7-9.3); Neutrophils # 4.8 K/mm3 (1.8-7.8); Neutrophils % 68.1 % (37.0-80.0); Platelet Count 373 K/mm3 (142-424); Red Blood Count 4.88 M/mm3 (4.20-5.40); Red Cell Distribution Width 14.8 % (11.5-17.5); White Blood Count 7.1 K/mm3 (4.8-10.8)
[2023-05-14 18:51] LABS: Alanine Aminotransferase 23 U/L (12-78); Albumin Level 3.9 g/dl (3.5-5.0); Albumin/Globulin Ratio 1.6 (1.1-1.8); Alkaline Phosphatase 86 U/L (38-126); Anion Gap 16.2 mEq/L (5-15); Aspartate Amino Transferase 34 U/L (14-36); Bilirubin,Total 0.2 mg/dl (0.2-1.3); Blood Urea Nitrogen 9 mg/dl (7-17); Calcium 8.9 mg/dl (8.4-10.2); Carbon Dioxide 23 mmol/L (22.0-30.0); Chloride 103 mmol/L (98-107); Cholesterol 160 mg/dl (140-200); Estimated Glomerular Filt Rate 72 ml/min (>60); GFR (African American) 87 ML/MIN (>60); Globulin 2.5 g/dL (1.3-3.2); Glucose 113 mg/dl (74-100); HDL Cholesterol 54 mg/dl (40-60); Potassium 4.2 mmoL/L (3.5-5.1); Sodium 138 mmol/L (136-145); Total Protein,Serum 6.4 g/dl (6.3-8.2); Triglycerides 219 mg/dl (30-150); VLDL Cholesterol 44 mg/dL (0-40)
[2023-05-14 19:02] LABS: Direct LDL Cholesterol 83.52 mg/dL (100-129)
[2023-05-14 19:08] LABS: Free T4 (Free Thyroxine) 0.95 ng/dl (0.78-2.19)
[2023-05-14 19:09] LABS: 25-OH Vitamin D, Total 47.5 ng/mL (30-100)
[2023-05-14 19:22] LABS: Thyroid Stimulating Hormone 1.12 uIU/mL (0.465-4.68)
== END ==
PROVIDERS: PCP Emergency Medicine; Visit Provider Emergency Medicine
DX: J44.9 Chronic obstructive pulmonary disease, unspecified (principal); I11.9 Hypertensive heart disease without heart failure; G47.00 Insomnia, unspecified; E55.9 Vitamin D deficiency, unspecified; I25.118 Atherosclerotic heart disease of native coronary artery with other forms of angina pectoris
CPT/HCPCS: 80053; 80061; 82306; 84439; 84443; 85025

== ENCOUNTER → 2023-09-06 12:00 | Outpatient (CLI) | payer MEDICARE, MEDICAID, SELFPAY ==
[2023-09-06 19:03] LABS: Barbiturates Screen,Urine Negative ng/ml (<200)
[2023-09-06 19:04] LABS: Amphetamine/Metha Screen,Urine Negative ng/ml (<1000)
[2023-09-06 19:05] LABS: Benzodiazepines Screen,Urine Negative ng/ml (<200); Cannabinoid Screen,Urine Positive ng/ml (<50)
[2023-09-06 19:06] LABS: Cocaine Screen,Urine Negative ng/ml (<300); Methadone Screen,Urine Negative ng/ml (<300)
[2023-09-06 19:07] LABS: Phencyclidine Screen,Urine Negative ng/ml (<25)
[2023-09-06 19:08] LABS: Opiate Screen,Urine Negative ng/ml (<300)
== END ==
PROVIDERS: PCP Emergency Medicine; Visit Provider Emergency Medicine
DX: Z79.899 Other long term (current) drug therapy (principal)
CPT/HCPCS: 80305

== ENCOUNTER 2023-09-09 12:47 | Day surgery (SDC) | payer MEDICARE, MEDICAID, SELFPAY ==
[2023-08-30 09:17] VITALS: BMI 29.2
[2023-09-09] VITALS (7 sets, daily range): BP systolic 82–138; BP diastolic 54–71; PULSE 69–80; RESP 14–18; TEMP 36.4–36.7; O2SAT 92–98
--- NOTE | 2023-09-09 13:04 | EXP.ANES.CKL ---
[facility] Disclaimer: The information contained in this section may have been updated after the patient was seen, as this information can be updated by other users. Medical History Angina pectoris Anxiety Atypical angina Benign parotid tumor CAD (coronary artery disease) Claudication Claudication COPD (chronic obstructive pulmonary disease) COPD mixed type COPD mixed type Depression Dyspnea Encounter for postoperative care Fatigue HHD (hypertensive heart disease) History of gastroesophageal reflux (GERD) History of left heart catheterization (LHC) HLD (hyperlipidemia) Lung nodule Lung nodule Migraine Nasal congestion Nasal drainage Osteoarthritis Osteoporosis PAD (peripheral artery disease) Pleomorphic adenoma of parotid gland Pre-op evaluation Primary lung cancer Pulmonary HTN Smoking greater than 30 pack years SOB (shortness of breath) Tobacco abuse Tobacco abuse counseling Tobacco abuse disorder Surgical History History of cholecystectomy History of colonoscopy History of hysterectomy History of intravascular stent placement Family History Other Family history of diabetes mellitus type II Family history of hypertension Family history of myocardial infarction Lung cancer Social History Smoking Status: Current every day smoker tobacco type: cigarettes packs per day: 1 second hand exposure: Yes alcohol intake: never substance use type: denies use current occupational status: disabled Travel in the last 8 weeks: None household members: none housing: house lives independently: Yes marital status: single education level: high school current occupational exposures/hazards: No caffeine: Yes special yarelis needs: No agree to transfusion: No do you feel safe at home: Yes victim of physical abuse: No victim of emotional abuse: No victim of sexual abuse: No would you like helpful sources: No [facility] Anesthesia Checklist Patient Identification Patient Identification: Arm Band and Verbal (Name & ) Structural Data Admitted From: Home Planned Operative Procedure/s: EGD Consent for Planned Operative Procedure(s) Verified: Yes NPO Status Verified Time NPO: 00:00 Additional verifications Anesthesia Reactions: No Hx Blood Transfusions: No Blood Transfusion Reaction: No Airway Assessment Mallampati Score:: Class I C-Spine Mobility Assessed: Yes TMJ Mobility Assessed: Yes Dentition: Edentulous Neurological Assessment Level of Consciousness: Awake Numbness or tingling in extremities: No Anesthesia Plan Anesthesia Risk discussed: Yes Anesthesia Plan: Verified ASA Class: III Anesthesia Type: MAC
--- NOTE | 2023-09-09 14:01 | HMH.SCOPE ---
Procedure: Date: 09/09/23 Patient Date of :: 1960 Procedure Performed:: EGD with biopsies, bougie dilation Indications:: Dysphagia, abdominal pain Performing Provider:: Alonzo Vigil MD Referring Provider:: Norma Vigil APRN Sedation:: Propofol Procedure:: The gastroscope was gently passed through the incisoral orifice into the oral cavity and under direct visualization the esophagus was intubated. The endoscope was passed down the esophagus, through the stomach, and into the duodenum. Color, texture, mucosa, and anatomy of the esophagus, stomach, and duodenum were carefully examined with the scope. Findings:: Oropharynx: normal Esophagus: normal, empiric bougie dilation performed with 56F dilator EG Junction: intact at 40 cm, no hiatus hernia Cardia: normal Fundus: normal Body: erosive gastritis, multiple biopsies obtained Antrum: normal Duodenal bulb: active duodenitis Duodenum (second and third portion): normal Impression: Erosive gastritis and duodenitis Specimens:: gastric Recommendations:: F/U with GI Cinic Avoid NSAIDs and ASA products Complications:: None Estimated blood obtained (mL): 0 Colonoscopy Component Colonoscopy Component Was a colonoscopy performed during today's procedure?: No
== END 2023-09-09 14:50 | disposition home or self-care (01) ==
PROVIDERS: PCP Emergency Medicine; Visit Provider Internal Medicine Gastroenterology
PROC: 0DJ08ZZ Inspection of Upper Intestinal Tract, Via Natural or Artificial Opening Endoscopic (ICD-10-PCS; CPT 43235; principal; 2023-09-09 13:30)
DX: K29.00 Acute gastritis without bleeding (principal); K29.80 Duodenitis without bleeding; R13.10 Dysphagia, unspecified
CPT/HCPCS: 43239; 43248; 88305

== ENCOUNTER → 2023-09-15 16:00 | Outpatient (CLI) | payer MEDICARE, MEDICAID, SELFPAY ==
[2023-09-15 22:49] LABS: Anion Gap 13.1 mEq/L (5-15); Blood Urea Nitrogen 10 mg/dl (7-17); Calcium 9.4 mg/dl (8.4-10.2); Carbon Dioxide 24 mmol/L (22.0-30.0); Chloride 103 mmol/L (98-107); Chol/HDL Ratio 5.2 (1-3.5); Cholesterol 234 mg/dl (140-200); Estimated Glomerular Filt Rate 63 ml/min (>60); GFR (African American) 76 ML/MIN (>60); Glucose 109 mg/dl (74-100); HDL Cholesterol 45 mg/dl (40-60); Potassium 4.1 mmoL/L (3.5-5.1); Sodium 136 mmol/L (136-145); Triglycerides 241 mg/dl (30-150); VLDL Cholesterol 48 mg/dL (0-40)
[2023-09-15 23:00] LABS: Direct LDL Cholesterol 147.85 mg/dL (100-129)
== END ==
PROVIDERS: PCP Emergency Medicine; Visit Provider Internal Medicine
DX: I25.118 Atherosclerotic heart disease of native coronary artery with other forms of angina pectoris (principal); I11.9 Hypertensive heart disease without heart failure; E78.5 Hyperlipidemia, unspecified; R06.00 Dyspnea, unspecified; Z72.0 Tobacco use
CPT/HCPCS: 36415; 80048; 80061

== ENCOUNTER 2023-09-30 09:05 | Day surgery (SDC) | payer MEDICARE, MEDICAID, SELFPAY ==
[2023-09-30] VITALS (12 sets, daily range): BP systolic 97–121; BP diastolic 53–70; PULSE 53–76; RESP 14–18; TEMP 36.8; O2SAT 91–96; BMI 28.7
--- NOTE | 2023-09-30 07:06 | IR_ITS ---
APPROVED REPORT Patient Location: Outpatient Binder Roller: INES Robin RT (R) PROCEDURES Left heart catheterization Left ventriculogram Selective coronary angiogram Drug-eluting stent deployment to the mid and distal dominant right coronary artery INDICATION Coronary artery disease, Worsening angina pectoris, In-stent restenosis Informed consent was obtained prior to the procedure. COMPLICATIONS None Estimated Blood Loss: Less than 10 mls TECHNIQUE One percent lidocaine used to anesthetize the right anterior aspect of the wrist. The right radial artery was accessed via the Seldinger technique. A 6 Chinese sheath was placed in the right radial artery. 2.5 mg of Verapamil, 800 mcg of nitroglycerin, 1mg Lidocaine and 5000 U Heparin were given through the arterial sheath. The papa catheter was also used to perform left heart catheterization, left ventriculogram and selective coronary angiogram. At the end the diagnostic angiogram therapeutic heparin was administered giving a therapeutic ACT and the guide catheter was placed in the right coronary artery followed by Choice PT extra-support wire. A 4 mm x 26 mm Loving frontier stent was deployed at 22 star reducing the stenosis. A 4.5 x 8 mm noncompliant balloon was then placed in the distal aspect of the stent and deployed at 24 star to post dilate. At the end of the procedure excellent angiographic results were obtained with SHABBIR-3 flow being present before and after the procedure. In the procedure the apparatus was removed the sheath was removed and hemostasis was achieved using TR banding patient was transferred to the postop holding in stable condition ANGIOGRAPHIC RESULTS The left main artery Normal The left anterior descending artery Has proximal 10% stenosis with mid vessel 20 to 30% stenoses The circumflex artery Nondominant with proximal 10 to 20% luminal irregularity The right coronary artery Large dominant the stents in the proximal mid and distal segment in a contiguous manner. The distal portion has 40 to 50% concentric in-stent restenosis followed by concentric 70% in-stent restenosis. The WILSON ventriculogram reveals Normal 65% The left ventricular end-diastolic pressure 10 to 15 mmHg IMPRESSION Severe in-stent restenosis in the distal dominant right coronary artery followed by drug-eluting stenting which reduced the tandem stenoses to 0% with a solitary drug-eluting stent Normal ejection fraction Normal left ventricular end-diastolic pressure PLAN 1. Dual antiplatelet therapy 2. Cardiac rehabilitation 3. Avoidance of tobacco products 4. Risk factor modification 5. LDL less than 55 to be achieved with high intensity statin Electronically signed by : Andrez Hernandez MD 09/30/2023 12:29:32
[2023-09-30 12:09] LABS: Basophils # 0.1 K/mm3 (0-0.2); Basophils % 0.9 % (0.1-2.0); Eosinophils # 0.4 K/mm3 (0.0-0.4); Eosinophils % 4.1 % (0.1-12.0); Hematocrit 45.5 % (37.0-47.0); Hemoglobin 15.6 g/dL (12.2-16.2); Lymphocytes # 2.5 K/mm3 (0.7-4.5); Lymphocytes % 26.8 % (10-50); Mean Corpuscular HGB Conc 34.3 g/dL (31.8-35.4); Mean Corpuscular Hemoglobin 28.5 pg (27.0-31.2); Mean Corpuscular Volume 82.9 fl (81-99); Mean Platelet Volume 7.5 fl (7.4-10.4); Monocytes # 0.5 K/mm3 (0.1-1.0); Monocytes % 5.3 % (1.7-9.3); Neutrophils # 5.8 K/mm3 (1.8-7.8); Neutrophils % 62.9 % (37.0-80.0); Platelet Count 366 K/mm3 (142-424); Red Blood Count 5.49 M/mm3 (4.20-5.40); Red Cell Distribution Width 16.1 % (11.5-17.5); White Blood Count 9.2 K/mm3 (4.8-10.8)
[2023-09-30 12:19] LABS: Anion Gap 18.3 mEq/L (5-15); Blood Urea Nitrogen 10 mg/dl (7-17); Calcium 9.3 mg/dl (8.4-10.2); Carbon Dioxide 24 mmol/L (22.0-30.0); Chloride 100 mmol/L (98-107); Creatinine Clearance Estimated 63 mL/min (50-200); Estimated Glomerular Filt Rate 63 ml/min (>60); GFR (African American) 76 ML/MIN (>60); Glucose 91 mg/dl (74-100); Potassium 4.3 mmoL/L (3.5-5.1); Sodium 138 mmol/L (136-145)
[2023-09-30 14:01] LABS: CATHL Activated Clotting Time 371 SEC (74-125)
== END 2023-09-30 15:30 | disposition home or self-care (01) ==
PROVIDERS: PCP Emergency Medicine; Visit Provider Internal Medicine
DX: E78.5 Hyperlipidemia, unspecified (principal); I11.9 Hypertensive heart disease without heart failure; I25.118 Atherosclerotic heart disease of native coronary artery with other forms of angina pectoris; R06.00 Dyspnea, unspecified; Z79.899 Other long term (current) drug therapy; Z79.02 Long term (current) use of antithrombotics/antiplatelets; I70.213 Atherosclerosis of native arteries of extremities with intermittent claudication, bilateral legs; J44.9 Chronic obstructive pulmonary disease, unspecified; F17.210 Nicotine dependence, cigarettes, uncomplicated; T82.855A Stenosis of coronary artery stent, initial encounter
CPT/HCPCS: 80048; 85025; 85347; 92928; 93458; 99152; C1725; C1769; C1876; C9600; J1644; Q9967

== ENCOUNTER 2023-11-09 15:58 | Emergency (ER) | payer MEDICARE, MEDICAID, SELFPAY ==
[2023-11-09 15:59] VITALS: BP 103/60; PULSE 75; RESP 19; TEMP 36.9; O2SAT 99; BMI 27.8
--- NOTE | 2023-11-09 16:38 | HMH.EDGENADL ---
Discharge Plan Disposition Patient Disposition: Home, Self-Care Condition: Good Prescriptions Prescriptions: New cefdinir 300 mg capsule 300 mg PO BID 10 Days Qty: 20 0RF ondansetron 4 mg tablet,disintegrating 4 mg PO Q8H PRN (Reason: nausea and vomiting) 4 Days Qty: 12 0RF No Action Alphagan P 0.1 % drops 0.1 drp OP DAILY Anoro Ellipta 62.5-25 mcg/actuation blister with device 1 inh inhalation DAILY 90 Days Qty: 180 3RF ipratropium-albuterol 0.5 mg-3 mg(2.5 mg base)/3 mL solution for nebulization 3 ml INHALATION QID PRN (Reason: COPD) Qty: 180 2RF furosemide [Lasix] 20 mg tablet 20 mg PO DAILY Qty: 90 3RF icuqhezfhl-vkvfmdftulwlz-ejvv [Fioricet] 50-300-40 mg capsule 1 cap PO Q8H PRN (Reason: headache) Qty: 30 0RF hydrocodone-acetaminophen 10-325 mg tablet 1 tab PO QID Qty: 120 0RF ezetimibe 10 mg tablet 10 mg PO DAILY 30 Days Qty: 30 2RF ondansetron HCl 4 mg tablet See Rx Instructions .ROUTE .COMPLEX Qty: 30 2RF Dose Instruction: TAKE ONE TABLET BY MOUTH EVERY 8 HOURS Rx Instructions: TAKE ONE TABLET BY MOUTH EVERY 8 HOURS cholecalciferol (vitamin D3) [Vitamin D3] 25 mcg (1,000 unit) capsule See Rx Instructions .ROUTE .COMPLEX Qty: 90 3RF Dose Instruction: TAKE ONE CAPSULE BY MOUTH DAILY Rx Instructions: TAKE ONE CAPSULE BY MOUTH DAILY clopidogrel 75 mg tablet See Rx Instructions .ROUTE .COMPLEX Qty: 90 3RF Rx Instructions: take 1 tablet by mouth DAILY for PLATELET INHIBITOR nitroglycerin 0.4 mg tablet, sublingual See Rx Instructions .ROUTE .COMPLEX Qty: 25 0RF Dose Instruction: DISSOLVE 1 TABLET UNDER THE TONGUE EVERY 5 MINUTES NEEDED FOR CHEST PAIN. DO NOT EXCEED A TOTAL OF 3 DOSES IN 15 MINUTES. Rx Instructions: DISSOLVE 1 TABLET UNDER THE TONGUE EVERY 5 MINUTES NEEDED FOR CHEST PAIN. DO NOT EXCEED A TOTAL OF 3 DOSES IN 15 MINUTES. atorvastatin 80 mg tablet 80 mg PO DAILY Qty: 30 2RF metoclopramide HCl 10 mg tablet See Rx Instructions .ROUTE .COMPLEX Qty: 120 0RF Dose Instruction: for nasuea; TAKE ONE TABLET BY MOUTH FOUR TIMES DAILY FOR STOMACH Rx Instructions: for nasuea; TAKE ONE TABLET BY MOUTH FOUR TIMES DAILY FOR STOMACH sertraline 100 mg tablet See Rx Instructions .ROUTE .COMPLEX Qty: 90 0RF Dose Instruction: TAKE ONE TABLET BY MOUTH DAILY Rx Instructions: TAKE ONE TABLET BY MOUTH DAILY zolpidem 10 mg tablet 10 mg PO HS PRN (Reason: insomnia) 30 Days Qty: 30 1RF albuterol sulfate [ProAir HFA] 90 mcg/actuation HFA aerosol inhaler 2 puff IH Q4HP PRN (Reason: shortness of breath or wheezing) bisoprolol fumarate 5 mg Tablet 5 mg PO DAILY Qty: 30 3RF Referrals Follow up/Referrals: Terrance Wheeler DO [Primary Care Provider] - See instructions Activity Restrictions/Add. Instructions Additional Instructions/Restrictions: You were evaluated in the emergency department today. Please orange picker your prescriptions at the pharmacy. Complete the full course of antibiotics as prescribed. Take Zofran at home as needed for nausea and vomiting. Follow-up with your primary care provider over the next 3 days. Return to the emergency department for new or worsening symptoms. Clinical Impressions Clinical Impression: Pyelonephritis Instructions Patient Instructions: DI for Kidney Infection Discharge ED Provider: Marisol Caban General Adult HPI General Chief complaint: PAIN Stated complaint: painful urination, back pain Time Seen by Provider: 11/09/23 16:00 Mode of Arrival: Ambulatory Source of Information: Patient Limitations: No Limitations Description of Symptoms (Recalled from ER Triage Doc. by RN): pt reports pain in lower back and genitals ongoing for 3-4 days. pt reports pain with urination. pt states that she has baseline incontinence. History of Present Illness HPI narrative: This patient is a 63-year-old female with a
[2023-11-09 16:40] LABS: Microscopic, Urine URINE MICROSCOPIC (MICROSCOPIC)
[2023-11-09 16:43] LABS: Basophils % 0.4 % (0.1-2.0); Chloride 103 mmol/L (98-107); Eosinophils # 0.2 K/mm3 (0.0-0.4); Hematocrit 42.5 % (37.0-47.0); Hemoglobin 14.1 g/dL (12.2-16.2); Lymphocytes # 1.3 K/mm3 (0.7-4.5); Lymphocytes % 15.4 % (10-50); Mean Corpuscular HGB Conc 33.3 g/dL (31.8-35.4); Mean Corpuscular Volume 84.1 fl (81-99); Mean Platelet Volume 6.7 fl (7.4-10.4); Monocytes # 0.3 K/mm3 (0.1-1.0); Monocytes % 3.7 % (1.7-9.3); Neutrophils # 6.8 K/mm3 (1.8-7.8); Neutrophils % 78.5 % (37.0-80.0); Platelet Count 307 K/mm3 (142-424); Red Blood Count 5.05 M/mm3 (4.20-5.40); Red Cell Distribution Width 15.8 % (11.5-17.5); Sodium 140 mmol/L (136-145); White Blood Count 8.6 K/mm3 (4.8-10.8)
[2023-11-09 16:44] LABS: Potassium 4.4 mmoL/L (3.5-5.1)
[2023-11-09 16:45] LABS: Appearance,Urine CLOUDY (Clear); Blood, Urine 3+ (Negative); Color,Urine YELLOW (Yellow); Glucose,Urine (UA) Negative (Negative); Ketones,Urine Negative (Negative); Leukocyte Esterase,Urine 3+ (Negative); Nitrate,Urine POSITIVE (Negative); Protein,Urine 2+ (Negative)
[2023-11-09 16:46] LABS: Alanine Aminotransferase 19 U/L (12-78); Albumin Level 4.7 g/dl (3.5-5.0); Albumin/Globulin Ratio 1.4 (1.1-1.8); Alkaline Phosphatase 92 U/L (38-126); Anion Gap 14.4 mEq/L (5-15); Aspartate Amino Transferase 36 U/L (14-36); Bilirubin,Total 0.5 mg/dl (0.2-1.3); Blood Urea Nitrogen 12 mg/dl (7-17); Carbon Dioxide 27 mmol/L (22.0-30.0); Creatinine Clearance Estimated 61 mL/min (50-200); Estimated Glomerular Filt Rate 63 ml/min (>60); GFR (African American) 76 ML/MIN (>60); Globulin 3.4 g/dL (1.3-3.2); Total Protein,Serum 8.1 g/dl (6.3-8.2)
[2023-11-09 16:46] LABS: Bilirubin,Urine 1+ (Negative)
[2023-11-09 16:47] LABS: Calcium 9.2 mg/dl (8.4-10.2); Glucose 98 mg/dl (74-100)
[2023-11-09 17:35] VITALS: BP 154/89; PULSE 68; RESP 16; TEMP 36.7; O2SAT 96
[2023-11-09 17:49] VITALS: BP 119/59; PULSE 71; RESP 16; TEMP 36.7
[2023-11-09 17:51] LABS: RBC,Urine TNTC #/hpf (0-3); WBC,Urine TNTC #/hpf (0-3)
[2023-11-09 17:52] LABS: Bacteria,Urine 1+ /lpf; Squamous Epithelial Cell,Urine Occasional #/hpf (0-5)
--- NOTE | 2023-11-13 18:10 | PC.NURSE ---
urine culture E.coli >100,000, dc on cefdinir, aware, no further action at this time
== END 2023-11-09 17:51 | disposition home or self-care (01) ==
PROVIDERS: Emergency Provider Emergency Medicine; PCP Internal Medicine
DX: N12 Tubulo-interstitial nephritis, not specified as acute or chronic (principal); I25.118 Atherosclerotic heart disease of native coronary artery with other forms of angina pectoris; I11.9 Hypertensive heart disease without heart failure; J44.9 Chronic obstructive pulmonary disease, unspecified; E78.5 Hyperlipidemia, unspecified; I27.20 Pulmonary hypertension, unspecified; I73.9 Peripheral vascular disease, unspecified; F17.210 Nicotine dependence, cigarettes, uncomplicated
CPT/HCPCS: 80053; 81001; 85025; 87086; 96361; 96365; 96375; 99285; J0131; J0696; J2405

== ENCOUNTER 2024-01-27 15:19 | Outpatient (CLI) | payer MEDICARE, MEDICAID, SELFPAY ==
[2024-02-01 15:18] LABS: Calprotectin, Fecal 19 ug/g (0-120)
[2024-02-02 22:16] LABS: Pancreatic Elastase, Fecal 312 (>200)
== END 2024-01-27 23:59 ==
PROVIDERS: PCP Family Medicine; Visit Provider Nurse Practitioner
DX: R19.4 Change in bowel habit (principal); R19.8 Other specified symptoms and signs involving the digestive system and abdomen; K29.70 Gastritis, unspecified, without bleeding
CPT/HCPCS: 82656; 83993

== ENCOUNTER 2024-04-14 20:54 | Emergency (ER) | payer MEDICARE, MEDICAID, SELFPAY ==
[2024-04-14] VITALS (9 sets, daily range): BP systolic 103–123; BP diastolic 58–100; PULSE 57–69; RESP 14–19; TEMP 37; O2SAT 94–99; BMI 29.0
--- NOTE | 2024-04-14 20:57 | ECG_ITS ---
APPROVED REPORT Exam: Resting ECG HR:55 bpm ECG Measurements Heart Rate 55 AXES NC 134 P 27 QRSd 91 QRS 29 QT 431 T 50 QTc 420 Conclusion SINUS BRADYCARDIA LOW QRS VOLTAGE IN PRECORDIAL LEADS [QRS DEFLECTION < 1.0 mV IN CHEST LEADS] NONSPECIFIC T-WAVE ABNORMALITY Electronically signed by : JACKELINE RODRIGUEZ, 04/15/2024 01:25:09
--- NOTE | 2024-04-14 21:07 | XR_ITS ---
PROCEDURE INFORMATION: Exam: XR Chest Exam date and time: 04/14/2024 9:11 PM Age: 64 years old Clinical indication: Other: Dizziness TECHNIQUE: Imaging protocol: Radiologic exam of the chest. Views: 1 view. COMPARISON: CT CHEST WO CON 03/23/2023 9:45 AM FINDINGS: Limitations: Radiographic technique - mild. Tubes, catheters and devices: Leads overlying chest. Lungs: No definite consolidation. Pleural spaces: No significant pleural effusion. No pneumothorax. Heart/Mediastinum: No cardiomegaly. Coronary artery calcifications. Bones/joints: No displaced fracture. Soft tissues: Unremarkable. Intraperitoneal space: Surgical clips within RIGHT upper quadrant. IMPRESSION: No definite acute cardiopulmonary disease.
[2024-04-14 21:20] LABS: Basophils # 0.1 K/mm3 (0-0.2); Basophils % 1.4 % (0.1-2.0); Eosinophils # 0.2 K/mm3 (0.0-0.4); Hematocrit 39.3 % (37.0-47.0); Hemoglobin 12.7 g/dL (12.2-16.2); Lymphocytes # 1.5 K/mm3 (0.7-4.5); Lymphocytes % 26.4 % (10-50); Mean Corpuscular HGB Conc 32.3 g/dL (31.8-35.4); Mean Corpuscular Hemoglobin 27.7 pg (27.0-31.2); Mean Corpuscular Volume 85.8 fl (81-99); Mean Platelet Volume 7.6 fl (7.4-10.4); Monocytes # 0.3 K/mm3 (0.1-1.0); Monocytes % 5.3 % (1.7-9.3); Neutrophils # 3.6 K/mm3 (1.8-7.8); Neutrophils % 63.8 % (37.0-80.0); Platelet Count 282 K/mm3 (142-424); Red Blood Count 4.58 M/mm3 (4.20-5.40); Red Cell Distribution Width 16.2 % (11.5-17.5); White Blood Count 5.6 K/mm3 (4.8-10.8)
[2024-04-14 21:23] LABS: Chloride 107 mmol/L (98-107)
[2024-04-14 21:24] LABS: Potassium 5.5 mmoL/L (3.5-5.1); Sodium 137 mmol/L (136-145)
[2024-04-14 21:26] LABS: Alanine Aminotransferase 17 U/L (12-78); Alkaline Phosphatase 44 U/L (38-126); Anion Gap 9.5 mEq/L (5-15); Aspartate Amino Transferase 37 U/L (14-36); Bilirubin,Total 0.5 mg/dl (0.2-1.3); Blood Urea Nitrogen 12 mg/dl (7-17); Carbon Dioxide 26 mmol/L (22.0-30.0); Creatinine Clearance Estimated 63 mL/min (50-200); Estimated Glomerular Filt Rate 55 ml/min (>60); GFR (African American) 67 ML/MIN (>60)
[2024-04-14 21:27] LABS: Albumin Level 3.6 g/dl (3.5-5.0); Albumin/Globulin Ratio 1.2 (1.1-1.8); Calcium 8.5 mg/dl (8.4-10.2); Globulin 2.9 g/dL (1.3-3.2); Glucose 86 mg/dl (74-100); Total Protein,Serum 6.5 g/dl (6.3-8.2)
[2024-04-14 21:32] LABS: Lipase 1632 U/L (23-300)
--- NOTE | 2024-04-14 21:32 | CT_ITS ---
PROCEDURE INFORMATION: Exam: CTA Abdomen and Pelvis With Contrast Exam date and time: 04/14/2024 9:52 PM Age: 64 years old Clinical indication: Abdominal pain; Additional info: Elevated lipase, diarrhea TECHNIQUE: Imaging protocol: Computed tomographic angiography of the abdomen and pelvis with contrast. Exam focused on the arteries. 3D rendering (Not supervised by radiologist): MIP and/or 3D reconstructed images were created by the technologist. Total images: 1343 Radiation optimization: All CT scans at this facility use at least one of these dose optimization techniques: automated exposure control; mA and/or kV adjustment per patient size (includes targeted exams where dose is matched to clinical indication); or iterative reconstruction. Contrast material: ISOVUE; Contrast volume: 100 ml; Contrast route: IV; COMPARISON: PT PET CT Skull Base to Midthigh 08/11/2021 12:54 PM FINDINGS: Diaphragm: Small sliding hiatal hernia. Aorta: Atherosclerotic abdominal aorta without aneurysm or dissection. Celiac trunk and mesenteric arteries: Mild atherosclerotic irregularity of the proximal celiac artery and superior mesenteric artery without stenosis or occlusion. Renal arteries: No occlusion or significant stenosis. Right iliac arteries: Atherosclerotic right iliac artery without stenosis or occlusion. Left iliac arteries: Atherosclerotic left iliac artery without stenosis or occlusion. Veins: Pelvic phleboliths. Liver: Decreased liver attenuation from phase of contrast versus steatosis. Liver is upper normal in size at 18.5 cm. Calcified liver granuloma. No discrete mass. Gallbladder and bile ducts: Status post cholecystectomy. Mild biliary ductal dilatation with the common bile duct measuring 9 mm. Findings most compatible with post cholecystectomy ectasia. Pancreas: Unremarkable. No mass. No ductal dilation. Spleen: Upper normal spleen at 13 cm. Heterogeneous splenic enhancement compatible phase of contrast. Calcified splenic granuloma. Adrenal glands: Unremarkable. No mass. Kidneys and ureters: Right renal cortical scarring. No hydronephrosis or nephrolithiasis. 2 cm lower pole right renal cortical cyst. Stomach and bowel: Nonspecific gastric antral wall thickening. Duodenal diverticulum. No ileus or bowel obstruction. Unremarkable small bowel. Unremarkable terminal ileum. The colon is mostly collapsed which limits evaluation. Wall thickening of the rectosigmoid colon is greater than expected for incomplete distension alone. Mild scattered colonic diverticulosis without focal diverticulitis. Appendix: Normal appendix. Intraperitoneal space: Unremarkable. No free air. No significant fluid collection. Lymph nodes: Unremarkable. No enlarged lymph nodes. Urinary bladder: Mild bladder wall thickening. Reproductive: Status post hysterectomy. 2 cm left ovarian cyst. Bones/joints: Mild osteopenia. Mild degenerative changes bilateral SI joints. No acute osseous abnormality. Soft tissues: Unremarkable. IMPRESSION: 1. No imaging findings of acute pancreatitis. Please note, imaging findings can be delayed compared with laboratory analysis. 2. Wall thickening of the rectosigmoid colon, greater than expected for incomplete distension alone, concerning for acute infectious or inflammatory colitis. No complicating features. 3. 2 cm left ovarian cyst. 4. Bladder wall thickening concerning for cystitis. 5. Normal appendix. 6. Atherosclerotic vascular disease. No aneurysm, high-grade stenosis, or vessel occlusion. 7. Mild biliary ductal dilatation in keeping with post cholecystectomy ectasia. If elevated bilirubin, recommend follow-up nonemergent MRCP. 8. Additional chronic and incidental findings.
--- NOTE | 2024-04-14 21:33 | CT_ITS ---
PROCEDURE INFORMATION: Exam: CTA Chest With Contrast Exam date and time: 04/14/2024 9:52 PM Age: 64 years old Clinical indication: Pain; Chest pressure; Additional info: Chest pain, weakness TECHNIQUE: Imaging protocol: Computed tomographic angiography of the chest with contrast. Exam focused on the arteries. 3D rendering (Not supervised by radiologist): MIP and/or 3D reconstructed images were created by the technologist. Total images: 636 Radiation optimization: All CT scans at this facility use at least one of these dose optimization techniques: automated exposure control; mA and/or kV adjustment per patient size (includes targeted exams where dose is matched to clinical indication); or iterative reconstruction. Contrast material: ISOVUE; Contrast volume: 100 ml; Contrast route: INTRAVENOUS (IV); COMPARISON: CT CHEST WO CON 03/23/2023 9:45 AM FINDINGS: Pulmonary arteries: Adequate contrast opacification the pulmonary arteries. Main pulmonary artery is normal in caliber. No acute pulmonary emboli. Aorta: Atherosclerotic thoracic aorta without aneurysm or dissection. Lungs: Calcified pulmonary granuloma. Trachea and main bronchi are patent. Moderate bilateral dependent atelectasis. Moderate to severe upper lobe predominant centrilobular emphysema. Similar appearing 2 cm spiculated mass in the right lower lobe. Interval diffuse accentuation of interstitium concerning for pneumonitis or edema. Pleural spaces: Unremarkable. No pneumothorax. No pleural effusion. Heart: Normal heart size. No pericardial effusion. Coronary arteries: Coronary artery calcification and or stent artifact. Esophagus: Diffuse mild esophageal wall thickening. Lymph nodes: Borderline enlarged mediastinal lymph nodes up to 10 mm in short axis. No hilar lymphadenopathy. Intraperitoneal space: Upper abdominal findings discussed separately on CT abdomen and pelvis report. Bones/joints: Mild osteopenia. Mild degenerative changes thoracic spine. Soft tissues: Unremarkable. IMPRESSION: 1. No acute pulmonary emboli. 2. Similar approximate 2 cm spiculated right lower lobe mass. Recommend follow-up PET scan or tissue biopsy if not previously acquired. 3. New diffuse mild accentuation of pulmonary interstitium concerning for pneumonitis or edema. 4. Moderate to severe upper lobe predominant centrilobular emphysema. 5. Moderate dependent bibasilar atelectasis. 6. Diffuse esophageal wall thickening likely reflecting esophagitis. 7. Borderline mediastinal lymphadenopathy. Differential is broad including reactive/postinflammatory, granulomatous, and metastatic/neoplastic causes. 8. Additional chronic and incidental findings. COMMENTS: The presence of pulmonary emphysema on CT is an independent risk factor for lung cancer. In the absence of a history or active diagnosis of lung cancer, it is recommended that this patient with emphysema be evaluated for enrollment in a low dose CT lung cancer screening program.
[2024-04-14 21:39] LABS: Troponin I < 0.01 ng/ml (0.00-0.034)
[2024-04-14] MEDS: LACTATED RINGERS 1000ML 1,000 ML 999 ML IV (22:07)
[2024-04-14] MEDS: 0.9 % SODIUM CHLORIDE 50 ML VIAL IV (22:09)
[2024-04-14] MEDS: IOPAMIDOL-370 (76%);100ML BOTTLE 100 ML IV (22:09)
[2024-04-14] MEDS: SODIUM CHLORIDE 0.9% 10ML SYR (RAD ONLY) 10 ML IV (22:09)
[2024-04-14 22:24] LABS: Microscopic,Cath URINE MICROSCOPIC (MICROSCOPIC)
[2024-04-14 22:26] LABS: Appearance,Urine/Cath CLEAR (Clear); Bilirubin,Cath Negative (Negative); Blood, Urine/Cath Negative (Negative); Color,Urine/Cath YELLOW (Yellow); Glucose,Urine/Cath (UA) Negative (Negative); Ketones,Urine/Cath Negative (Negative); Leukocyte Esterase,Cath Negative (Negative); Nitrate,Cath Negative (Negative); PH,Urine/Cath 6.5 (5.0-8.5); Protein,Urine/Cath Negative (Negative); Urobilinogen,Cath 0.2 EU/dl (0.2)
--- NOTE | 2024-04-15 00:45 | ED_ITS ---
Discharge Plan Disposition Patient Disposition: Home, Self-Care Condition: Good Prescriptions Prescriptions: New pantoprazole 40 mg tablet,delayed release (DR/EC) 40 mg PO DAILY Qty: 30 0RF ondansetron HCl 4 mg tablet 4 mg PO Q8H PRN (Reason: nausea and vomiting) 4 Days Qty: 12 0RF No Action Alphagan P 0.1 % drops 0.1 drp OP DAILY Anoro Ellipta 62.5-25 mcg/actuation blister with device 1 inh inhalation DAILY 90 Days Qty: 180 3RF albuterol sulfate [ProAir HFA] 90 mcg/actuation HFA aerosol inhaler 2 puff IH Q4HP PRN (Reason: shortness of breath or wheezing) Qty: 6.7 0RF atorvastatin 80 mg tablet 80 mg PO DAILY Qty: 30 2RF bisoprolol fumarate 5 mg tablet 5 mg PO DAILY Qty: 30 3RF cholecalciferol (vitamin D3) [Vitamin D3] 25 mcg (1,000 unit) capsule See Rx Instructions .ROUTE .COMPLEX Qty: 90 3RF Dose Instruction: TAKE ONE CAPSULE BY MOUTH DAILY Rx Instructions: TAKE ONE CAPSULE BY MOUTH DAILY clopidogrel 75 mg tablet See Rx Instructions .ROUTE .COMPLEX Qty: 90 3RF Rx Instructions: take 1 tablet by mouth DAILY for PLATELET INHIBITOR furosemide [Lasix] 20 mg tablet 20 mg PO DAILY Qty: 90 3RF ipratropium-albuterol 0.5 mg-3 mg(2.5 mg base)/3 mL solution for nebulization 3 ml INHALATION QID PRN (Reason: COPD) Qty: 180 2RF sertraline 100 mg tablet See Rx Instructions .ROUTE .COMPLEX Qty: 90 0RF Dose Instruction: TAKE ONE TABLET BY MOUTH DAILY Rx Instructions: TAKE ONE TABLET BY MOUTH DAILY dicyclomine 20 mg tablet 20 mg PO TID PRN (Reason: abdominal pain) Qty: 180 4RF nitroglycerin 0.4 mg tablet, sublingual See Rx Instructions .ROUTE .COMPLEX Qty: 25 0RF Dose Instruction: DISSOLVE 1 TABLET UNDER THE TONGUE EVERY 5 MINUTES NEEDED FOR CHEST PAIN. DO NOT EXCEED A TOTAL OF 3 DOSES IN 15 MINUTES. Rx Instructions: DISSOLVE 1 TABLET UNDER THE TONGUE EVERY 5 MINUTES NEEDED FOR CHEST PAIN. DO NOT EXCEED A TOTAL OF 3 DOSES IN 15 MINUTES. metoclopramide HCl 10 mg tablet See Rx Instructions .ROUTE .COMPLEX Qty: 120 0RF Dose Instruction: TAKE ONE TABLET BY MOUTH FOUR TIMES DAILY FOR STOMACH/nausea Rx Instructions: TAKE ONE TABLET BY MOUTH FOUR TIMES DAILY FOR STOMACH/nausea ezetimibe 10 mg tablet See Rx Instructions .ROUTE .COMPLEX Qty: 30 2RF Dose Instruction: TAKE ONE TABLET BY MOUTH DAILY Rx Instructions: TAKE ONE TABLET BY MOUTH DAILY spironolactone 25 mg tablet See Rx Instructions .ROUTE .COMPLEX Qty: 90 0RF Dose Instruction: TAKE ONE TABLET BY MOUTH DAILY FOR fluid Rx Instructions: TAKE ONE TABLET BY MOUTH DAILY FOR fluid hkadsdascj-fepljfucxiajd-pycw [Fioricet] 50-300-40 mg capsule 1 cap PO Q8H PRN (Reason: headache) Qty: 30 0RF ondansetron 4 mg tablet,disintegrating 4 mg PO Q8H PRN (Reason: nausea and vomiting) 4 Days Qty: 12 0RF Referrals Follow up/Referrals: Provider,Referral, MD [Primary Care Provider] - See instructions Activity Restrictions/Add. Instructions Additional Instructions/Restrictions: You were evaluated in the emergency department today. Your lipase, or your pancreas enzyme, is elevated. This can cause abdominal pain, nausea, vomiting, and diarrhea. You also have findings concerning for colitis and esophagitis on CT scan. For this, we are prescribing you medications to have as needed for nausea and to take daily for stomach upset. You were found to have a lung mass with lymph nodes enlarged in your chest. You tell that you are already aware of this, but I recommend close follow-up for this. Return to the emergency department for new or worsening symptoms. Follow-up with your primary care provider over the next 3 days. Clinical Impressions Clinical Impression: Lung mass, Colitis, Esophagitis, Mediastinal adenopathy, Hyperkalemia, Elevated lipase Instructions Patient Instructions: DI for Pancreatitis, DI for Colitis Discharge ED Provider: Marisol Caban General Adult HPI General Chief complaint: Dizziness Stated complaint: bradycardia, malaise Time Seen by Provider: 04/14/24 21:32 Mode of Arrival: EMS Source of Information: Patient Limitations: No Limitations Description of Symptoms (Recalled from ER Triage Doc. by RN): 64 yo female presents with cc of dizziness,room spinning, diarrhea that began this morning. Called EMS and per their report she was bradycardic in the 40's and they gave 1mg atropine ADVERTISING CAMPAIGN MANAGER. Patient denies n/v. Denies CADENA. No focal deficits. History of Present Illness HPI narrative: This patient is a 64-year-old female with a history of lung cancer s/p radiation, COPD, IBS, BERTRAM, hypertension, hyperlipidemia, PAD, and CAD presenting to the emergency department for evaluation with concern for lightheadedness. Patient reports that this morning when she tried to get out of bed, she felt like her head was swimming and like she could not get up. She felt overall very weak. She is feeling much better now. EMS noted that when they arrived on scene, she was mildly bradycardic in the 40s and they gave her 1 mg of atropine. She stated that at that time, she was having nausea, and she had been having profuse abdominal cramping and diarrhea. She notes that she typically has abdominal issues, but today was more severe. Based on the way the patient describes, it send like she may have vagaled down upon EMS arrival. She states overall she is feeling really good at this time and wants to go home. She states that she is fine and does not know why she came here. Related Data Home Medications Medication Instructions Recorded Confirmed brimonidine 0.1 % eye drops 0.1 drp ophthalmic (eye) DAILY 05/19/22 12/27/23 (Alphagan P) glacoma Previous Rx's Medication Instructions Recorded umeclidinium 62.5 mcg-vilanterol 1 inh inhalation DAILY 90 days 02/16/23 25 mcg/actuation powdr for #180 ea inhalation (Anoro Ellipta) ondansetron 4 mg disintegrating 4 mg PO Q8H PRN nausea and 11/09/23 tablet vomiting 4 days #12 tabs nitroglycerin 0.4 mg sublingual See Rx Instructions .Route 12/22/23 tablet .COMPLEX #25 tabs albuterol sulfate 90 mcg/actuation 2 puff inhalation Q4HP PRN 12/27/23 aerosol inhaler (ProAir HFA) shortness of breath or wheezing #6.7 grams atorvastatin 80 mg tablet 80 mg PO DAILY #30 tabs 12/27/23 bisoprolol fumarate 5 mg tablet 5 mg PO DAILY #30 tabs 12/27/23 cholecalciferol (vitamin D3) 25 See Rx Instructions .Route 12/27/23 mcg (1,000 unit) capsule (Vitamin .COMPLEX #90 caps D3) clopidogrel 75 mg tablet See Rx Instructions .Route 12/27/23 .COMPLEX Blood thinner #90 tabs furosemide 20 mg tablet (Lasix) 20 mg PO DAILY #90 tabs 12/27/23 ipratropium 0.5 mg-albuterol 3 mg 3 ml inhalation QID PRN COPD #180 12/27/23 (2.5 mg base)/3 mL nebulization mL soln sertraline 100 mg tablet See Rx Instructions .Route 12/27/23 .COMPLEX #90 tabs ezetimibe 10 mg tablet See Rx Instructions .Route 01/24/24 .COMPLEX #30 tabs metoclopramide HCl 10 mg tablet See Rx Instructions .Route 01/24/24 .COMPLEX #120 tabs dicyclomine 20 mg tablet 20 mg PO TID PRN abdominal pain 01/27/24 #180 tabs spironolactone 25 mg tablet See Rx Instructions .Route 01/28/24 .COMPLEX #90 tabs fdlgwtvirk-lcokbhpaqstpc-dvwbtnrn 1 cap PO Q8H PRN headache #30 caps 02/01/24 50 mg-300 mg-40 mg capsule (Fioricet) ondansetron HCl 4 mg tablet 4 mg PO Q8H PRN nausea and 04/15/24 vomiting 4 days #12 tabs pantoprazole 40 mg tablet,delayed 40 mg PO DAILY #30 tabs 04/15/24 release Allergies Allergy/AdvReac Type Severity Reaction Status Date / Time No Known Allergies Allergy Verified 01/27/24 14:59 [facility] Disclaimer: The information contained in this section may have been updated after the patient was seen, as this information can be updated by other users. Medical History Pyelonephritis Typical angina Nausea Primary lung cancer Tobacco abuse disorder Tobacco abuse counseling Strongly encouraged to quit. COPD mixed type Patient COPD is bad enough she needs oxygen at home. She was seen back in 2019 by neurology. Additionally has been seen by pulmonology outside of the [facility] system. Will just follow at this point. Lung nodule COPD mixed type Angina pectoris Smoking greater than 30 pack years Lung nodule Sinusitis Nasal drainage Nasal congestion Encounter for postoperative care Benign parotid tumor Pleomorphic adenoma of parotid gland History of left heart catheterization (LHC) Depression Anxiety Migraine Osteoarthritis Osteoporosis History of gastroesophageal reflux (GERD) Claudication Dyspnea Severe obesity with body mass index (BMI) of 36.0 to 36.9 with serious comorbidity GI bleed Pulmonary HTN Atypical angina Fatigue Abdominal swelling Gastroenteritis SOB (shortness of breath) Pre-op evaluation HLD (hyperlipidemia) Last lipid panel was done in August of this year. H she smokes, has hypertension, and hyperlipidemia. er triglycerides are 241 total cholesterol 234 LDL of 147 HDL of 45. Patient comes with a history of coronary artery disease. Obviously patient's risk over the next 10 years is extremely high. She needs to get her LDL is down below 100 and better yet below 70. She is on maximal statin therapy at atorvastatin 80 mg/day. We will start Ezetimibe at 10mg per day. Claudication PAD (peripheral artery disease) COPD (chronic obstructive pulmonary disease) Tobacco abuse HHD (hypertensive heart disease) Patient's blood pressures actually been good. She is currently on bisoprolol. I have suggested her that she get a blood pressure cuff and check her blood pressures at home record those and bring them back. CAD (coronary artery disease) Surgical History History of colonoscopy History of hysterectomy History of cholecystectomy History of intravascular stent placement Family History Other Family history of diabetes mellitus type II Family history of hypertension Family history of myocardial infarction Lung cancer Social History Smoking Status: Unknown if ever smoked second hand exposure: Yes alcohol intake: never substance use type: denies use current occupational status: disabled Travel in the last 8 weeks: None household members: none housing: house lives independently: Yes marital status: single education level: high school current occupational exposures/hazards: No caffeine: Yes special yarelis needs: No agree to transfusion: No do you feel safe at home: Yes victim of physical abuse: No victim of emotional abuse: No victim of sexual abuse: No would you like helpful sources: No ROS Obtained: Yes All systems reviewed & no additional complaints except as documented Physical Exam General General appearance: alert and in no apparent distress Head Head exam: atraumatic and normocephalic Eye Eye exam: Present normal appearance, PERRL and EOMI ENT ENT exam: Present normal exam, normal oropharynx, mucous membranes moist and normal external ear exam Neck Neck exam: Present normal inspection, full ROM and trachea midline; Absent tenderness Chest Chest inspection: Present normal inspection and symmetric chest wall rise; Absent tenderness Respiratory Respiratory exam: Present normal lung sounds bilaterally; Absent respiratory distress, wheezes, stridor or accessory muscle use Cardiovascular Cardiovascular exam: Present regular rate and normal rhythm Abdominal Exam Abdominal exam: Present soft; Absent distention, tenderness or guarding Extremities Exam Extremities exam: Present normal inspection, full ROM and normal capillary refill; Absent tenderness or edema Back Exam Back exam: Present normal inspection and full ROM; Absent tenderness Neurological Exam Neurological exam: Present alert, oriented X3, CN II-XII intact and normal gait; Absent motor sensory deficit Psychiatric Psychiatric exam: Present normal affect and normal mood Skin Skin exam: Present warm and dry Medical Decision Making Medical Records Medical records reviewed: Yes I reviewed the patient's medical records. Marco A Inquiry Pt receiving controlled substance: No Vital Signs: 04/14/24 21:03 04/14/24 21:09 04/14/24 21:21 Temperature 98.6 F Temperature Source Oral Pulse Rate 68 68 Pulse Rate [Right Brachial] 57 L Respiratory Rate 19 14 14 Blood Pressure 115/62 110/72 Blood Pressure [Right Arm] 123/100 H Blood Pressure Mean 70 75 Blood Pressure Mean [Right Arm] 107 Blood Pressure Source [Right Arm] Automatic Cuff Blood Pressure Position [Right Arm] Sitting 02 Sat by Pulse Oximetry 99 95 95 Oxygen Delivery Method Room Air 04/14/24 21:25 04/14/24 21:30 04/14/24 21:35 Temperature Temperature Source Pulse Rate 69 68 68 Pulse Rate [Right Brachial] Respiratory Rate 14 16 15 Blood Pressure 103/58 L 107/67 L 120/60 Blood Pressure [Right Arm] Blood Pressure Mean 77 84 80 Blood Pressure Mean [Right Arm] Blood Pressure Source [Right Arm] Blood Pressure Position [Right Arm] 02 Sat by Pulse Oximetry 96 96 94 L Oxygen Delivery Method 04/14/24 21:40 04/14/24 21:45 04/14/24 21:50 Temperature Temperature Source Pulse Rate 64 66 65 Pulse Rate [Right Brachial] Respiratory Rate 14 15 15 Blood Pressure 109/59 L 118/65 116/66 Blood Pressure [Right Arm] Blood Pressure Mean 89 97 88 Blood Pressure Mean [Right Arm] Blood Pressure Source [Right Arm] Blood Pressure Position [Right Arm] 02 Sat by Pulse Oximetry 95 95 95 Oxygen Delivery Method Lab Data Lab results reviewed: Yes I reviewed the patient's lab results. Lab Results 04/14/24 20:55: WBC 5.6, RBC 4.58, Hgb 12.7, Hct 39.3, MCV 85.8, MCH 27.7, MCHC 32.3, RDW 16.2, Plt Count 282, MPV 7.6, Neut % (Auto) 63.8, Lymph % (Auto) 26.4, [place] % (Auto) 5.3, Eos % (Auto) 3.0, Baso % (Auto) 1.4, Neut # (Auto) 3.6, Lymph # (Auto) 1.5, [place] # (Auto) 0.3, Eos # (Auto) 0.2, Baso # (Auto) 0.1, Sodium 137, Potassium 5.5 H, Chloride 107, Carbon Dioxide 26, Anion Gap 9.5, BUN 12, Creatinine 1.00, Estimated Creat Clear 63, Estimated GFR 55 L, Est GFR ( Amer) 67, Glucose 86, Calcium 8.5, Total Bilirubin 0.5, AST 37 H, ALT 17, Alkaline Phosphatase 44, Troponin I < 0.01, Total Protein 6.5, Albumin 3.6, Globulin 2.9, Albumin/Globulin Ratio 1.2, Lipase 1632 H 04/14/24 22:15: Urine Color Yellow, Urine Appearance Clear, Urine pH 6.5, Ur Specific [place] 1.010, Urine Protein Negative, Urine Glucose (UA) Negative, Urine Ketones Negative, Urine Blood Negative, Urine Nitrate Negative, Urine Bilirubin Negative, Urine Urobilinogen 0.2, Ur Leukocyte Esterase Negative, Urine RBC None, Urine WBC None, Ur Squamous Epith Cells 3-5, Urine Bacteria None 04/14/24 20:55 04/14/24 20:55 Orders (Tests/Meds): ED MEDICATIONS Generic Name Dose Route Start Last Admin Trade Name Freq PRN Reason Stop Dose Admin Sodium Chloride 10 ml 04/14/24 22:08 04/14/24 22:09 Sodium Chloride 0.9% 10ml Syr (Rad Only) IV 05/14/24 22:07 10 ml NEEDED PRN Administration Maintain IV Site Discontinued Medications Generic Name Dose Route Start Last Admin Trade Name Freq PRN Reason Stop Dose Admin Lactated Ringer's 1,000 mls @ 999 mls/hr 04/14/24 21:39 04/14/24 22:07 Lactated Ringer's 1000 Ml Bag IV 04/14/24 22:39 999 mls/hr .Q1H1M ONE Administration Iopamidol 100 ml 04/14/24 22:08 04/14/24 22:09 Iopamidol-370 (76%);100ml Bottle IV 04/14/24 22:09 100 ml ONCE ONE Administration Sodium Chloride 50 ml 04/14/24 22:08 04/14/24 22:09 0.9 % Sodium Chloride 50 Ml Vial IV 04/14/24 22:09 50 ml ONCE ONE Administration ORDERS Category Date Time Status CT abdomen pelvis w con Stat Cat Scan 04/14/24 21:[address] angio chest PE protocol Stat Cat Scan 04/14/24 21:33 Completed XR chest portable Stat Exams 04/14/24 21:07 Completed Complete Blood Count Auto Diff Stat Lab 04/14/24 20:55 Completed Comprehensive Metabolic Panel Stat Lab 04/14/24 20:55 Completed Lipase Stat Lab 04/14/24 20:55 Completed Trop I [Troponin I] Stat Lab 04/14/24 20:55 Completed Troponin I Q3H Lab 04/15/24 00:15 Ordered Troponin I Q3H Lab 04/15/24 03:15 Ordered Urinalysis (cathed specimen) Stat Lab 04/14/24 22:15 Completed ECG Data Tracing #1: I reviewed this ECG and interpreted as documented below: Sinus bradycardia with a ventricular rate of 55 bpm. Nonspecific T wave abnormality. No acute ST changes concerning for ischemia. Normal intervals. ECG initial impression date: 04/15/24 ECG initial impression time: 21:03 Medical Decision Narrative: In summary, this patient is a 64-year-old female presenting to the Emergency Department for evaluation of lightheadedness, nausea, vomiting, and diarrhea. Differential diagnoses considered include but are not limited to ACS, pancreatitis, GERD, colitis, diverticulitis. Ruling out the most morbid conditions drove assessment. It should be noted patient's history includes IBS as well as cardiac dysfunction which are likely not at goal therapy. This complicates all aspects of care by increasing patient's risk for morbidity. I reviewed patient's past medical records and noted multiple previous evaluations for abdominal pain in the past and his chest pain. On exam, the patient is alert, oriented, GCS of 15 and is resting comfortably in bed in no acute distress. Vitals are reassuring on cardiac telemetry. She has mild sinus bradycardia. Workup included CBC, CMP, lipase, troponin, urinalysis, CTA chest, and CTA abdomen and pelvis.. I independently interpreted CT scan prior to the radiologist read and noted findings concerning for colonic thickening. Please see their read for final interpretation. They also noted her lung mass as well as her adenopathy, which I notified the patient of. She states she already knows this. They also noted concern for esophagitis. Labs were obtained that demonstrated very mild hyperkalemia and mildly elevated AST. Lipase is elevated at 1632.. On reassessment, patient is resting comfortably and states that she is ready to go home. She does not want to stay for any other testing or management. Advised her that her lipase is elevated and she has findings concerning for colitis, which can cause her to be dehydrated. I also notified her of her lab abnormalities, and she stated that she is fine and is feeling much better and would like to go home. She states that nausea, vomiting, and diarrhea happened to her every day and she already has medications at home to treat this. Given her abnormal lab findings, advised that she follow-up very closely with her primary care provider since she is electing to leave via patient directed discharge. She was given strict return precautions should her symptoms worsen, and she stated not to worry that she would be back in a second if she feels worse. Patient was discharged after all questions were answered. Critical Care Critical Care Time Critical Care Time: No
[2024-04-15 00:49] VITALS: BP 103/58; PULSE 57; RESP 16; TEMP 36.9; O2SAT 93
== END 2024-04-15 00:45 | disposition home or self-care (01) ==
PROVIDERS: Emergency Provider Emergency Medicine
DX: E87.5 Hyperkalemia (principal); R00.1 Bradycardia, unspecified; R59.0 Localized enlarged lymph nodes; K20.90 Esophagitis, unspecified without bleeding; K52.9 Noninfective gastroenteritis and colitis, unspecified; R91.8 Other nonspecific abnormal finding of lung field; R74.8 Abnormal levels of other serum enzymes; R10.819 Abdominal tenderness, unspecified site; R11.0 Nausea; J44.9 Chronic obstructive pulmonary disease, unspecified; I73.9 Peripheral vascular disease, unspecified; I11.9 Hypertensive heart disease without heart failure; I25.119 Atherosclerotic heart disease of native coronary artery with unspecified angina pectoris; E78.5 Hyperlipidemia, unspecified; Z85.118 Personal history of other malignant neoplasm of bronchus and lung; Z92.21 Personal history of antineoplastic chemotherapy; Z87.891 Personal history of nicotine dependence
CPT/HCPCS: 71045; 71275; 74177; 80053; 81001; 83690; 84484; 85025; 93005; 96360; 99285; J7120; Q9967

== ENCOUNTER 2024-05-03 10:31 | Outpatient (CLI) | payer MEDICARE, MEDICAID, SELFPAY ==
[2024-05-03 11:04] LABS: Basophils # 0.1 K/mm3 (0-0.2); Basophils % 1.3 % (0.1-2.0); Eosinophils # 0.3 K/mm3 (0.0-0.4); Eosinophils % 2.8 % (0.1-12.0); Hematocrit 44.1 % (37.0-47.0); Hemoglobin 14.5 g/dL (12.2-16.2); Lymphocytes % 18.8 % (10-50); Mean Corpuscular HGB Conc 32.9 g/dL (31.8-35.4); Mean Corpuscular Hemoglobin 27.8 pg (27.0-31.2); Mean Corpuscular Volume 84.3 fl (81-99); Mean Platelet Volume 7.6 fl (7.4-10.4); Monocytes # 0.5 K/mm3 (0.1-1.0); Monocytes % 4.4 % (1.7-9.3); Neutrophils # 7.6 K/mm3 (1.8-7.8); Neutrophils % 72.8 % (37.0-80.0); Platelet Count 379 K/mm3 (142-424); Red Blood Count 5.23 M/mm3 (4.20-5.40); Red Cell Distribution Width 16.5 % (11.5-17.5); White Blood Count 10.4 K/mm3 (4.8-10.8)
[2024-05-03 11:29] LABS: Anion Gap 14.7 mEq/L (5-15); Blood Urea Nitrogen 11 mg/dl (7-17); Calcium 9.8 mg/dl (8.4-10.2); Carbon Dioxide 26 mmol/L (22.0-30.0); Chloride 101 mmol/L (98-107); Estimated Glomerular Filt Rate 50 ml/min (>60); GFR (African American) 60 ML/MIN (>60); Glucose 107 mg/dl (74-100); Magnesium 1.7 mg/dl (1.6-2.3); Potassium 3.7 mmoL/L (3.5-5.1); Sodium 138 mmol/L (136-145)
[2024-05-03 11:47] LABS: Free T4 (Free Thyroxine) 1.06 ng/dl (0.78-2.19)
[2024-05-03 12:01] LABS: Thyroid Stimulating Hormone 2.76 uIU/mL (0.465-4.68)
== END 2024-05-03 23:59 | disposition home or self-care (01) ==
LOC: LAB 10:32
PROVIDERS: PCP Family Medicine; Visit Provider Nurse Practitioner
DX: R42 Dizziness and giddiness (principal); R00.1 Bradycardia, unspecified
CPT/HCPCS: 80048; 83735; 84439; 84443; 85025; 93270

== ENCOUNTER 2024-05-19 13:21 | Outpatient (CLI) | payer MEDICARE, MEDICAID, SELFPAY ==
--- NOTE | 2024-05-19 13:22 | CA_ITS ---
FINAL REPORT CLINICAL HISTORY: DIZZINESS,SMOKER,HTN,HLD COMPARISON: None FINDINGS: RIGHT CAROTID: CCA PSV - 54 cm/sec ICA PSV - 79 cm/sec ICA/CCA PSV ratio -1.48 . Comments: Mild plaque disease is noted. LEFTCAROTID: CCA PSV - 119. cm/sec ICA PSV - 90. cm/sec ICA/CCA PSV ratio - 1.56 . Comments: Mild plaque disease is noted. Antegrade flow is seen within the vertebral arteries. IMPRESSION: Carotid stenosis classified less than 50% bilaterally. Reviewed, Interpreted and Dictated by Estefanía Wilhelm MD Transcribed by Teresa Mccabe Authenticated and . [facility]
--- NOTE | 2024-05-19 13:22 | CA_ITS ---
APPROVED REPORT EXAM: Comprehensive 2D, Doppler, and color-flow Echocardiogram Manufacturing Inspector: Emily Calderon RDCS Ht: 5 ft 2 in Wt: 159lbs BSA: 1.73 BP: 134/68 mmHg Indications: CAD,LUNG CA,PHTN,DIZZINESS M-Mode Dimensions RVDd 1.30 cm (0.9-2.6) LA Diam 3.89 cm (1.9-4.0) LVDd 5.64 cm (3.5-5.7) LVDs 3.85 cm (3.5-5.7) IVSd 1.30 cm (0.6-1.1) PWd 0.95 cm (0.6-1.1) EF (Teich) 59.10% FS 31.70% EDV (Teich) 156.20 mL ESV (Teich) 63.90 mL LV Diastology E Decel Time 267 (160-240 msec) E/A Ratio 0.8 Mitral Valve MV E Max Ton. 54.0 (40-130 cm/s) MV A Velocity 69.0 (40-130 cm/s) E/A Ratio 0.78 MV PHT 78.0 ms Tricuspid Valve TR P. Velocity 273.00 cm/s RAP Estimate 10.00 mmHg RVSP 39.90 mmHg Left Ventricle The left ventricle is normal size. The left ventricular systolic function is normal. The left ventricular ejection fraction is within the normal range. There is increased LV wall thickness. There is normal LV segmental wall motion. Transmitral Doppler flow pattern suggests impaired LV relaxation. LVEF is 60%. Right Ventricle The right ventricle is mildly dilated. The right ventricular systolic function is normal. There is increased RV wall thickness. Atria Left atrium is mildly dilated. Right atrium is mildly dilated. There is no Doppler evidence of interatrial shunt. Aortic Valve The aortic valve opens well. There is no aortic valvular stenosis. No aortic regurgitation is present. Mitral Valve The mitral valve is normal in structure. No evidence of mitral valve stenosis. Trace mitral regurgitation. Tricuspid Valve The tricuspid valve leaflets are thin and pliable. Mild tricuspid regurgitation. [id number] mmHg. Pulmonic Valve The pulmonary valve is normal in structure. Trace pulmonic regurgitation. Great Vessels The aortic root is normal in size. The ascending aorta is not well-visualized. IVC is normal in size and collapses >50% with inspiration. Pericardium There is no pericardial effusion. Other Information Study Quality: Technically Difficult Conclusion Technically difficult study due to poor acoustic windows. Normal biventricular systolic function. Mild RV dilation. Mild biatrial dilation. Mild TR. RVSP 30-35 mmHg. Electronically signed by : Jailene Montague MD 05/25/2024 20:42:25
== END 2024-05-19 23:59 | disposition home or self-care (01) ==
LOC: RT 13:22
PROVIDERS: PCP Family Medicine; Visit Provider Nurse Practitioner
DX: R42 Dizziness and giddiness (principal); Z98.890 Other specified postprocedural states
CPT/HCPCS: 93306; 93880

== ENCOUNTER 2025-02-20 09:50 | Outpatient (CLI) | payer MEDICARE, MEDICAID, SELFPAY ==
[2025-02-20 10:37] LABS: Basophils # 0.1 K/mm3 (0-0.2); Basophils % 0.9 % (0.1-2.0); Eosinophils # 0.4 K/mm3 (0.0-0.4); Eosinophils % 4.1 % (0.1-12.0); Hematocrit 41.5 % (37.0-47.0); Hemoglobin 13.8 g/dL (12.2-16.2); Lymphocytes # 1.8 K/mm3 (0.7-4.5); Lymphocytes % 21.5 % (10-50); Mean Corpuscular HGB Conc 33.3 g/dL (31.8-35.4); Mean Corpuscular Hemoglobin 27.7 pg (27.0-31.2); Mean Corpuscular Volume 83.3 fl (81-99); Mean Platelet Volume 9.2 fl (7.4-10.4); Monocytes # 0.6 K/mm3 (0.1-1.0); Monocytes % 7.1 % (1.7-9.3); Neutrophils # 5.6 K/mm3 (1.8-7.8); Neutrophils % 65.9 % (37.0-80.0); Platelet Count 349 K/mm3 (142-424); Red Blood Count 4.98 M/mm3 (4.20-5.40); Red Cell Distribution Width 14.6 % (11.5-17.5); White Blood Count 8.5 K/mm3 (4.8-10.8)
[2025-02-20 10:56] LABS: Albumin Level 4.2 g/dl (3.5-5.0); Chloride 107 mmol/L (98-107); Potassium 3.9 mmoL/L (3.5-5.1); Sodium 140 mmol/L (136-145)
[2025-02-20 10:58] LABS: Blood Urea Nitrogen 9 mg/dl (7-17); Estimated Glomerular Filt Rate 55 ml/min (>60); GFR (African American) 67 ML/MIN (>60)
[2025-02-20 10:59] LABS: Alanine Aminotransferase 19 U/L (12-78); Alkaline Phosphatase 87 U/L (38-126); Anion Gap 9.9 mEq/L (5-15); Aspartate Amino Transferase 24 U/L (14-36); Bilirubin,Indirect 0.3 mg/dL (0.0-0.9); Bilirubin,Total 0.3 mg/dl (0.2-1.3); Bilirubin,Unconjugated 0.2 mg/dL (0.0-1.1); Calcium 9.4 mg/dl (8.4-10.2); Carbon Dioxide 27 mmol/L (22.0-30.0); Cholesterol 126 mg/dl (140-200); Glucose 100 mg/dl (74-100); Magnesium 1.9 mg/dl (1.6-2.3); Total Protein,Serum 6.4 g/dl (6.3-8.2); Triglycerides 159 mg/dl (30-150); VLDL Cholesterol 32 mg/dL (0-40)
[2025-02-20 11:00] LABS: HDL Cholesterol 42 mg/dl (40-60)
[2025-02-20 11:12] LABS: Direct LDL Cholesterol 61.35 mg/dL (100-129)
[2025-02-20 11:19] LABS: Free T4 (Free Thyroxine) 0.84 ng/dl (0.78-2.19)
[2025-02-20 11:33] LABS: Thyroid Stimulating Hormone 1.42 uIU/mL (0.465-4.68)
== END 2025-02-20 23:59 | disposition home or self-care (01) ==
LOC: LAB 09:51
PROVIDERS: PCP Family Medicine; Visit Provider Physician Assistant
DX: I27.20 Pulmonary hypertension, unspecified (principal); R53.83 Other fatigue; E78.2 Mixed hyperlipidemia; I25.118 Atherosclerotic heart disease of native coronary artery with other forms of angina pectoris; I11.9 Hypertensive heart disease without heart failure; E78.5 Hyperlipidemia, unspecified
CPT/HCPCS: 36415; 80048; 80061; 80076; 83735; 84439; 84443; 85025

== ENCOUNTER 2025-03-01 12:45 | Outpatient (CLI) | payer MEDICARE, MEDICAID, SELFPAY ==
--- NOTE | 2025-03-01 12:48 | CA_ITS ---
APPROVED REPORT EXAM: Comprehensive 2D, Doppler, and color-flow Echocardiogram Hammerer Helper: NIKO Rubin, RVS Ht: 5 ft 2 in Wt: 178lbs BSA: 1.82 BP: 115/84 mmHg Indications: WENCESLAO, CP, Dizziness, SmokerLung CA, SVT, COPD, HLD Echo Enhancing Agent Comments: Poor Acoustics throughout exam due to lung impedance 2D Dimensions IVSd 1.15 cm LVEF (Visual) 75.20 % PWd 1.03 cm LA Volume 52.70 mL LVDd 3.79 cm LA Volume Index [id number] mL/m2 (M/F) 16-34 LVDs 2.15 cm Left Atrium 3.55 cm M-Mode Dimensions LA Diam 3.62 cm (1.9-4.0) EPSs 0.57 cm TAPSE 2.04 (<1.7) LV Diastology E Decel Time 303 (160-240 msec) E/A Ratio 0.97 MED A' 10.80 cm/s LAT A' 11.50 cm/s Aortic Valve MAGYG Index 1.66 cm2/m2 AoV Peak Ton. 138.0 (50-130 cm/s) AO Peak GR. 7.60 mmHg AO Mean GR. 3.90 (<5 mmHg) AO VTI 29.9 (18-25 cm) MAGGY (VTI) 3.08 (2.5-4.5 cm2) Mitral Valve MV A Velocity 74.0 (40-130 cm/s) E/A Ratio 0.97 Pulmonary Valve PV Peak Velocity 84.0 (50-150 cm/s) Tricuspid Valve TR P. Velocity 254.00 cm/s RAP Estimate 10.00 mmHg RVSP 35.90 mmHg Left Ventricle The left ventricle is normal size. The left ventricular systolic function is normal. The left ventricular ejection fraction is within the normal range. There is increased LV wall thickness. There is normal LV segmental wall motion. The left ventricular diastolic function is normal. LVEF is 60%. Right Ventricle The right ventricle is normal size. The right ventricular systolic function is normal. Atria The left atrium is mildly dilated. The right atrium is mildly dilated. There is no Doppler evidence of interatrial shunt. Aortic Valve The aortic valve is mildly thickened. There is no aortic valvular stenosis. No aortic regurgitation is present. Mitral Valve The mitral valve is normal in structure. No evidence of mitral valve stenosis. Trace mitral regurgitation. Tricuspid Valve Tricuspid valve is grossly normal in structure and function. Trace tricuspid regurgitation. There is insufficient TR jet to estimate RVSP. Pulmonic Valve The pulmonary valve is normal in structure. Trace pulmonic regurgitation. Great Vessels The aortic root is normal in size. IVC is normal in size and collapses >50% with inspiration. Pericardium There is no pericardial effusion. Other Information Study Quality: Fair Conclusion Normal biventricular systolic function. Mild biatrial dilation. No significant valvular stenosis or regurgitation. Electronically signed by : Jailene Montague MD 03/05/2025 13:10:46
--- NOTE | 2025-03-01 13:00 | CA_ITS ---
FINAL REPORT CLINICAL HISTORY: [place], CAD, COPD, Smoker, Dizziness COMPARISON: None FINDINGS: RIGHT CAROTID: CCA PSV -78 cm/sec ICA PSV -94 cm/sec ICA/CCA PSV ratio -1.3. Comments: Moderate plaque disease is noted. LEFTCAROTID: CCA PSV -90. cm/sec ICA PSV -152. cm/sec ICA/CCA PSV ratio -1.9. Comments: Moderate plaque disease is noted. Antegrade flow is seen within the vertebral arteries. IMPRESSION: Carotid stenosis classified less than 50% Reviewed, Interpreted and Dictated by Estefanía Wilhelm MD Transcribed by Estee Calvo Authenticated and [facility]
--- OUTSIDE RECORDS SUMMARY | 2025-03-01 23:22 | XMS_ITS | Data Portability ---
Author Organization [facility] Address [address] [facility] [address] [place] [address] Care Team Providers Care Emissions Inspector Name Role Phone LAUREEN MELENDREZ Primary Care Provider [phone] Assessment Encounter Date Assessment Date Assessment LastModified by Organization Details LastModified Time 02/17/2017 02/17/2017 1. Chronic daily headache; nearly year duration 2. Etiology of headache not evident at today's evaluation 3. No history of headache disorder; she says onset occurred at age 55, never before 4. Bilateral TMJ syndrome Plan 1.Schedule MRI brain w/wo contrast and MRA 2. Follow up after studies 3. I must question patient about symptoms suggesting obstrx sleep apnea.; will question at return 4. If no blood work done recently, must search for hypercalcemia and hyperthyroidism as cause 5. She is candidate for iv valproic acid drip to block headache if she is open to idea, will discuss after MRI/MRA I did not start new medication today She is taking [email or web address] Not available 02/17/2017 14:08:48 03/31/2017 03/31/2017 1. Chronic daily headache; nearly year duration 2. Abnormal MRA; 3 mm aneurysm Plan 1. Trial of gabapentin 300 mg 1 tab po QID prn headache 2. We will repeat MRA in one year 3. I will discuss again at follow up whether we choose to follow up MRA in 6 months I think that this aneurysm is safe to watch and repeat the scan, 4. I discussed with patient that no specific action is needed at this time I do not think this 3 mm aneurysm is related to her chronic daily headache 3. Follow up in 8 weeks, sooner if needed [email or web address] Not available 04/04/2017 13:24:17 06/01/2017 06/01/2017 1. Chronic daily headache, onset at age 56 2. Patient relates headaches began 1 month after bladder surgery (February 2016) 3. 3 mm cerebral aneurysm seen on MRA on intra-cavernous portion of right internal carotid artery 4. History of no benefit with gabapentin 300 mg qid ( used x 1 month March-April) Plan 1. Wishes to avoid another medication at this time 2. Gave RX for PT for neck and upper back for heat, US, ROM 3. Schedule Brain MRI w/wo contrast 4. Follow up in 6 months Not available 06/18/2017 11:00:00 Plan of Treatment Reminders Order Date Submit Date Provider Last Modified By Organization Details Last Modified Time Details Appointments None recorded. Lab None recorded. Referral physical therapist referral 2016 [facility], [address], [place], [address], 7 16:35:38 Procedures None recorded. Surgeries None recorded. Imaging MR, angiogram, head, w/o contrast 2016 017 [facility], [address] [place] [address], [phone], 8 07:59:27 Medication Orders gabapentin 300 mg capsule 2016 017 [email or web address] [facility], [address] [place] [address], [id number], 7 15:42:39 Patient TargetsNo targets recorded. Patient Instructions Encounter Date Encounter Id Patient Instructions Last Modified By Organization Details Last Modified Time 02/17/2017 [id number] temporomandibula r disorder: care instructions [email or web address] Not available 02/18/2017 14:07:36 Reason for Referral Referring Physician: Sarina alvarez, Neurology, Encounter Date: 06/01/2017 Results Created Date Observation Date Name Description Value Unit Range Abnormal Flag Note LastModifiedBy Organization Detail LastModifiedTime 03/31/20 17 03/31/2017 MR brain w/wo/ cow wo contr ast [facility] [place] [address] [place] [address] [place] [address] Isreal reynoso Name: SHARON reynoso : [birth year] 56 Patien t Orderi ng Provid er: SARINA SHAW EXAM DATE: 2016 EXAM: MR BRAIN W/WO/ COW WO CONTRA ST HISTOR Y: 57-yea r-old female with severe headac hes. COMPAR HAYLEY: 017. FINDIN GS: MRI OF THE BRAIN WITH AND WITHOU T CONTRA ST: The ventri cles are mildly enlarg ed, and mildly asymme tric with the right being larger than the left. There is no mass, mass effect , or midlin e shift. There is no abnorm al extra- axial fluid, intrac ranial hemorr colleen, or infarc tion. The diffus ion weight ed sequen barbara are normal . There are mild perive ntricu lar white matter change s. There are multip le small white matter lesion s throug hout the brain. After intrav enous admini strati on of 15 cc Magnev ist ([facility] [id number] 5), there is no abnorm al enhanc ement in the brain. The undergraduate internship al caroti d and basila r flow-v oids are normal . There is mild mucosa l thicke darryl in the ethmoi d and maxill edelmira sinuse s. There is a small amount of fluid in the mastoi d air cells. MR ANGIOG M[facility] [place] [facility] [place] WITHOU T CONTRA ST: There is enlarg ement of the medial aspect of the cavern ous portio n of the right undergraduate internship al caroti d artery which repres ents a possib le sessil e aneury sm. This measur es approx imatel y 3 mm. The visual ized left undergraduate internship al caroti d artery and basila r artery appear normal . There is no focal stenos is or aneury sm. The anteri or, middle , and healthcare recruiter ior cerebr al arteri es are normal in appear ance. There is no focal stenos is or aneury smal dilata tion. The [place] appear s comple te. IMPRES DIMITRI: 1. There is mild diffus e cerebr al atroph y and mild white matter change s in the brain. 2. There is a possib le 3 mm sessil e aneury sm along the medial aspect of the cavern ous portio n of the right undergraduate internship al caroti d artery . Interp reted By: Dilshad fields MD Electr onical ly Signed By: Dilshad fields MD on 017 1:23 PM [email or web address] [facility] [address] [place] [address], [phone], 04/01/2017 08:18:44 Result Notes None recorded. Problems Name Problem SNOMED Code Status Onset Date Resolution Date Notes Provider Name and Address Organization Details Recorded Time Dysuria 56128835 Active 2015 From Automated Load;Provi jean pierre: Lamar, Brandyn;St at[facility]: Active Not Available [facility] 6 11:26:18 Nocturnal enuresis 0755651 Active 2015 From Automated Load;Provi jean pierre: Lamar, Brandyn;St at[facility]: Active Not Available [facility] 6 11:26:18 Urinary incontine nce 913785285 Active 2015 From Automated Load;Provi jean pierre: Lamar, Brandyn;St atus: Active Not Available [facility] 6 11:26:18 Problem Notes None recorded. Procedures Surgical History Date Name Laterality Status Provider Name and Address Organization Details Recorded Time Cholecystectomy completed [facility] 02/17/2017 08:30:29 Imaging Results Imaging Date Name Status LastModified by Organiz ation Details LastModified Time 03/31/2017 MR brain w/wo/ cow wo contrast completed [email or web address] [facility] [address], [phone], 04/01/2017 08:18:44 Procedure Notes None recorded. Medical Equipment None Reported. Allergies No known drug allergies Medications Name Sig Start Date Stop Date Status Note LastModified by Organization Details LastModified Time Celexa 10 mg tablet Daily 02/17 completed Frequenc y: daily;Me dication Descript ion: citalopr am; Dosage:1 ; Route:or al; refills: 0 Not Available Not Available Not Available Effexor XR 37.5 mg capsule,e xtended release Take 1 capsule every day by oral route. 06/01 completed Not Available Not Available Not Available Prilosec 20 mg capsule,d elayed release Every night at bedtime 02/17 completed Frequenc y: qhs;Medi cation Descript ion: omeprazo le; Dosage:1 ; Route:or al; refills: 0 Not Available Not Available Not Available Lipitor 20 mg tablet Every night at bedtime 02/17 completed Frequenc y: qhs;Medi cation Descript ion: atorvast atin; Dosage:1 ; Route:or al; refills: 0 Not Available Not Available Not Available Zoloft 50 mg tablet Take 1 tablet every day by oral route. active Not Available Not Available No t Available gabapenti n 300 mg capsule 1 tab po QID 2016 active Not Available Not Available Not Avai lable Seroquel 100 mg tablet Take every day by oral route at bedtime. 06/01 completed Not Available Not Available Not Available Ambien 10 mg tablet Take 1 tablet every day by oral route. active Not Available Not Available No t Available Zantac Maximum Strength 150 mg tablet Two times a day active Frequenc y: bid;Medi cation Descript ion: ranitidi ne; Route:or al; refills: 0 Not Available Not Available Not Available Alphagan P 06/01 completed Not Available Not Available Not Available Hydrocodo ne 06/01 completed Not Available Not Available Not Available Abilify 02/17 completed Medicati on Descript ion: aripipra zole; refills: 0 Not Available Not Available Not Available Fioricet 50 mg-300 mg-40 mg capsule 02/17 completed Medicati on Descript ion: acetamin ophen/bu talbital /caffein e; Route:or al; refills: 0 Not Available Not Available Not Available Vitals Date Recorded Body height Body weight Body mass index (BMI) Systolic blood pressure Diastolic blood pressure Provider Name and Address Organization Details Last Updated DateTime 02/17/2017 157.48 cm 45377.63 g 32.9 kg/m2 126 mm[Hg] 80 mm[Hg] [facility] 08:34:20 Date Recorded Body height Body weight Body mass index (BMI) Systolic blood pressure Diastolic blood pressure Provider Name and Address Organization Details Last Updated DateTime 03/31/2017 157.48 cm 67705.22 g 33.1 kg/m2 122 mm[Hg] 80 mm[Hg] [facility] 7 16:06:20 Date Recorded Body height Body mass index (BMI) Body weight Systolic blood pressure Diastolic blood pressure Provider Name and Address Organization Details Last Updated DateTime 06/01/2017 157.48 cm 30.7 kg/m2 84865.52 g 124 mm[Hg] 82 mm[Hg] [facility] 7 15:42:12 Social History Question Answer Notes LastModified by Organizat ion Details LastModified Time Tobacco Smoking Status Current Every Day Smoker Not Available [facility] 09/24/2020 03:47:32 What Is Your Level Of Alcohol Consumption? Occasional [id number] Information not available 09/24/2020 What Is Your Level Of Caffeine Consumption? Moderate 2 CUPS DAILY [id number] Information not available 09/24/2020 Education 11 Information no t available 02/17/2017 What Is Your Occupation? DISABLED [id number] Information not available 09/24/2020 Marital Status [email or web address] Informatio n not available 02/17/2017 How Much Tobacco Do You Smoke? 1 PPD [id number] Information not available 09/24/2020 Has Tobacco Cessation Counseling Been Provided? Yes [id number] Information not available 09/24/2020 On What Date Was Tobacco Cessation Counseling Provided? 09/17/2017 [id number] Information not available 09/24/2020 Sex: Unknown Functional Status None recorded. Mental Status None recorded. Family History Relationship Description Onset Age of this Age Resolved Age Notes LastModified by Organization Details LastModified Time Father Family history of malignant neoplasm [email or web address] Not available 2016 08:29:24 Mother Family history of malignant neoplasm [email or web address] Not available 2016 08:29:24 Medical History Condition Response Depression Y COPD Y Anxiety Disorder Y Headaches Y Reflux/GERD Y Gynecological HistoryNo gynecological history recorded. Obstetrics History GPAL:G 0 P 0 0 0 0 Immunizations Vaccine Type Date Status Note Provider Nam e and Address Organization Details Recorded Time Influenza, split virus, quadrivalent, preservative 10/03/201 6 completed Mei Ramiresen [facility] 02/17/2017 08:34:43 Past Encounters Encounter ID Performer Location Encounter Start Date Encounter Closed Date Diagnosis/Indication Diagnosis SNOMED-CT Code Diagnosis ICD10 Code Diagnosis Note [id number] SARINA SHAW MD [facility]UROLOGY [facility] [address] [place] [address] 02/17/2017 08:21:56 02/17/2017 09:33:23 Migraine 42623740 G43.909 Chronic he adache disorder 230727109 G44.89 Temporoman dibular joint disorder 71906191 M26.489 [id number] SARINA SHAW MD NEUROLOGY [facility] [address] [place] [address] 03/31/2017 15:41:26 03/31/2017 17:02:05 Chronic headache disorder 617458418 G44.89 Nonrupture d cerebral aneurysm 02859225 I67.1 [id number] SARINA SHAW MD NEUROLOGY [facility] [address] [place] [address] 06/01/2017 15:08:42 06/01/2017 16:05:26 Chronic tension-type headache 212642635 G44.229 Intracranial aneurysm 12 2624486 I67.1 Health Concerns Section Related Observation LastModified by Organization Detai ls LastModified Time None Recorded Concern Status LastModified by Organization Details LastModified Time None Recorded Advance Directives Directive None Recorded Payers Encounter Date Sequence Insurance Name Policy Number Policy Grayson Covered Member ID Grayson Member ID Guarantor Name 02/17/2017 1 [place] Sharon Stephens Coelho [id number] Sharon Stephens Coelho 02/17/2017 2 [place] [employer] [place]/TRADITIO JULIO Stephens Coelho [id number] Sharon Stephens Coelho 03/31/2017 1 [place] Sharon Stephens Coelho [id number] Sharon Stephens Coelho 03/31/2017 2 [place]TRADIT[place] JULIO Stephens Coelho [id number] Sharon Stephens Coelho 06/01/2017 1 [place] Sharon Stephens Coelho [id number] Sharon Stephens Coelho 06/01/2017 2 [place]TRADITIO NAL Sharon Stephens Coelho [id number] Sharon Stephens Coelho Notes Date Note Type Note Provider Name and Address Organization Details Recorded Time 02/17/2017 text/html Seen at request of Kimberly Ordoñez NP from [place]. cc: headaches Voices she started having headaches April of 2016. She states she has a headache nearly every day.It starts approx 5 min after she wakes up in the morning. The pain is in the right side of her head. She states its a pounding pain. On a 1-10 scale for pain she voices its a 8. The headache will last all day. She does not have have any other symptom. At a time she voices she was going to the ED approx once per week for the headache. She states she has had 3 CT scans; negative/normal . I have not seen those reports. She has used several daily medications; topamax, propranolol, and depakote; these were stopped due to no benefitAs needed medications; Imitrex, fioricet; did not show benefit. She has been evaluated by ENT and Neurologist Dr. Reaves. She is followed by Dr. Ayush Corona due to her glaucoma. SARINA SHAW MD [address] [place] [address], [phone], [facility] 02/17/2017 14:09:57 03/31/2017 text/html This is MRI and MRA follow up . MRI brain w/wo contrast revealed; There are mild periventricular white matter changes. There are multiple small white matter lesions throughout the brain. MRA revealed; There is mild diffuse cerebral atrophy and mild white matter changes in the brain. There is a possible 3 mm sessile aneurysm along the medial aspect of the cavernous portion of the right internal carotid artery. I discussed this result with patient and . She states she still has daily headache. She rotates ASA, tylenol and ibuprofen SARINA SHAW MD [address] [place] [address], [phone], [facility] 04/04/2017 13:25:09 06/01/2017 text/html This is follow u p for this 57-year-old woman with headaches. Today she reports that she feels like she has weights on her eyes. states her headaches came after a bladder surgery. gabapentin was not helpful In one year time she has tried 6 different medications. Has tried topiramate, depakote, imitrex; thats all she can recall SARINA SHAW MD [address] [place] [address], [phone], [facility] 06/18/2017 11:00:33 OBGyn Episode No OBEpisode recorded.
== END 2025-03-01 23:59 | disposition home or self-care (01) ==
LOC: RT 12:45
PROVIDERS: PCP Family Medicine; Visit Provider Physician Assistant
DX: I51.7 Cardiomegaly (principal); I65.23 Occlusion and stenosis of bilateral carotid arteries; R42 Dizziness and giddiness; I25.118 Atherosclerotic heart disease of native coronary artery with other forms of angina pectoris; R53.83 Other fatigue; R06.02 Shortness of breath; I73.9 Peripheral vascular disease, unspecified
CPT/HCPCS: 93306; 93880

== ENCOUNTER 2025-03-02 08:37 | Day surgery (SDC) | payer MEDICARE, MEDICAID, SELFPAY ==
[2025-03-02] VITALS (10 sets, daily range): BP systolic 94–128; BP diastolic 50–65; PULSE 54–77; RESP 16–20; TEMP 37.1; O2SAT 92–96; BMI 32.5
--- NOTE | 2025-03-02 07:08 | IR_ITS ---
APPROVED REPORT Patient Location: Outpatient PROCEDURES Left heart catheterization Left ventriculogram Selective coronary angiogram INDICATION Known coronary artery disease, Worsening angina pectoris Informed consent was obtained prior to the procedure. COMPLICATIONS NONE Estimated Blood Loss: LESS THAN 10 ML TECHNIQUE One percent lidocaine used to anesthetize the right anterior aspect of the wrist. The right radial artery was accessed via the Seldinger technique. A 6 Tunisian sheath was placed in the right radial artery. 2.5 mg of Verapamil, 800 mcg of nitroglycerin, 1mg Lidocaine and 5000 U Heparin were given through the arterial sheath. The 6 Tunisian JL 3 catheter was also used to perform left heart catheterization, left ventriculogram and selective coronary angiogram. At the end of the procedure the sheath was removed good hemostasis was achieved using Traclet band, patient was transferred to the postop holding area in stable condition. ANGIOGRAPHIC RESULTS The left main artery Normal The left anterior descending artery Has proximal 10 and 30% stenoses with diffuse 10 to 20% luminal regularities The circumflex artery Mild diffuse 10 to 20% luminal regularities The right coronary artery Dominant and has proximal 20% stenosis immediately prior to a widely patent proximal and mid vessel and distal stent. The distal aspect of the stent has concentric 30% in-stent restenosis there is excellent distal transitioning into a large PDA and PLV B The WILSON ventriculogram reveals Normal 65% The left ventricular end-diastolic pressure 20 mmHg IMPRESSION Coronary disease as described above Normal ejection fraction Mildly elevated LVEDP Noncardiac symptoms PLAN 1. Treatment of noncardiac symptoms 2. Ongoing risk factor modification Electronically signed by : Andrez Hernandez MD 03/02/2025 10:45:57
[2025-03-02] MEDS: diazePAM 5MG TABLET 5 MG PO (08:55)
[2025-03-02 09:11] LABS: Basophils # 0.1 K/mm3 (0-0.2); Basophils % 0.8 % (0.1-2.0); Eosinophils # 0.3 K/mm3 (0.0-0.4); Eosinophils % 3.3 % (0.1-12.0); Hematocrit 41.2 % (37.0-47.0); Hemoglobin 13.3 g/dL (12.2-16.2); Lymphocytes % 21.7 % (10-50); Mean Corpuscular HGB Conc 32.3 g/dL (31.8-35.4); Mean Corpuscular Hemoglobin 27.5 pg (27.0-31.2); Mean Corpuscular Volume 85.1 fl (81-99); Mean Platelet Volume 8.9 fl (7.4-10.4); Monocytes # 0.5 K/mm3 (0.1-1.0); Monocytes % 5.4 % (1.7-9.3); Neutrophils # 6.4 K/mm3 (1.8-7.8); Neutrophils % 68.6 % (37.0-80.0); Nucleated Red Blood Cells # 0 10^3/uL; Nucleated Red Blood Cells % 0 %; Platelet Count 354 K/mm3 (142-424); Red Blood Count 4.84 M/mm3 (4.20-5.40); Red Cell Distribution Width 14.6 % (11.5-17.5); White Blood Count 9.3 K/mm3 (4.8-10.8)
[2025-03-02 09:17] LABS: Chloride 104 mmol/L (98-107); Potassium 3.8 mmoL/L (3.5-5.1); Sodium 138 mmol/L (136-145)
[2025-03-02 09:20] LABS: Anion Gap 12.8 mEq/L (5-15); Blood Urea Nitrogen 12 mg/dl (7-17); Calcium 9.1 mg/dl (8.4-10.2); Carbon Dioxide 25 mmol/L (22.0-30.0); Creatinine Clearance Estimated 64 mL/min (50-200); Estimated Glomerular Filt Rate 50 ml/min (>60); GFR (African American) 60 ML/MIN (>60); Glucose 119 mg/dl (74-100)
[2025-03-02] MEDS: 0.9 % SODIUM CHLORIDE 500 ML 25 ML IV (10:27)
[2025-03-02] MEDS: LIDOCAINE 1% 10ML MDV 10 ML IJ (10:27)
[2025-03-02] MEDS: diphenhydrAMINE 50MG/ML VIAL 50 MG IV (10:27)
[2025-03-02] MEDS: HEPARIN 1,000 UNITS/500ML NS (CATH LAB) 3000 UNIT IV (10:27)
[2025-03-02] MEDS: HEPARIN 1,000 UNITS/ML 10ML VIAL (CATH LAB) 5000 UNIT IV (10:28)
[2025-03-02] MEDS: VERAPAMIL 2.5MG/ML 2ML VIAL 2.5 MG IV (10:28)
[2025-03-02] MEDS: MIDAZOLAM HCL 1MG/ML 5ML VIAL 1 MG IV (10:41)
[2025-03-02] MEDS: FENTANYL 100MCG/2ML VIAL 50 MCG IV (10:42)
[2025-03-02] MEDS: IOPAMIDOL-370 (76%);100ML BOTTLE 50 ML IV (14:34)
== END 2025-03-02 13:08 | disposition home or self-care (01) ==
PROVIDERS: PCP Family Medicine; Visit Provider Internal Medicine
DX: I25.118 Atherosclerotic heart disease of native coronary artery with other forms of angina pectoris (principal); I65.23 Occlusion and stenosis of bilateral carotid arteries; R47.9 Unspecified speech disturbances; R20.0 Anesthesia of skin; R42 Dizziness and giddiness; R53.83 Other fatigue; R06.02 Shortness of breath; I73.9 Peripheral vascular disease, unspecified; I27.20 Pulmonary hypertension, unspecified; F17.210 Nicotine dependence, cigarettes, uncomplicated; Z95.5 Presence of coronary angioplasty implant and graft; Z79.899 Other long term (current) drug therapy
CPT/HCPCS: 80048; 85025; 93458; 99152; C1725; C1769; J1200; J1644; J3010; Q9967

== ENCOUNTER 2025-03-12 14:00 | Outpatient (CLI) | payer MEDICARE, MEDICAID, SELFPAY ==
--- NOTE | 2025-03-12 14:00 | CT_ITS ---
FINAL REPORT TECHNIQUE: Multiple axial CT sections were performed from the foramen magnum to the vertex. Coronal reformatted images were also obtained. Precontrast and postcontrast injection images were obtained. This study was performed with technique to keep radiation doses as low as reasonably achievable, (ALARA). Individualized dose reduction techniques using automated exposure control or adjustment of mA and/or kV according to the patient size were employed. CLINICAL HISTORY: Tongue numbness, difficulty speaking COMPARISON: 07/21/2016 FINDINGS: Mild atrophy is noted. There is mild decreased attenuation in the deep white matter probably due to chronic ischemia. There is calcification of the anterior interhemispheric falx. There is moderate mucoperiosteal thickening of the left maxillary sinus with a complex air-fluid level. On the postinfusion images, there is normal intracranial vasculature. There is no abnormal enhancement. IMPRESSION: Mild atrophy and changes of chronic ischemia. Acute and chronic left maxillary sinusitis. Reviewed, Interpreted and Dictated by Jasen Montano MD Transcribed by Rona Frias Authenticated and [facility]
[2025-03-12] MEDS: SODIUM CHLORIDE 0.9% 10ML SYR (RAD ONLY) 10 ML IV (14:31)
[2025-03-12] MEDS: IOPAMIDOL-300 (61%);15ML VIAL 10 ML IV (14:31)
== END 2025-03-12 23:59 | disposition home or self-care (01) ==
LOC: RAD 14:01
PROVIDERS: PCP Family Medicine; Visit Provider Physician Assistant
DX: R47.9 Unspecified speech disturbances (principal); R20.0 Anesthesia of skin; I65.23 Occlusion and stenosis of bilateral carotid arteries; R42 Dizziness and giddiness; R53.83 Other fatigue; R06.02 Shortness of breath; I73.9 Peripheral vascular disease, unspecified; I25.118 Atherosclerotic heart disease of native coronary artery with other forms of angina pectoris
CPT/HCPCS: 70470; Q9967

== ENCOUNTER 2025-05-29 07:53 | Outpatient (CLI) | payer MEDICARE, MEDICAID, SELFPAY ==
--- OUTSIDE RECORDS SUMMARY | 2025-04-16 07:30 | XMS_ITS | Continuity of Care Document ---
Author Organization [facility] Phone Care Team Providers Care Wedding Day Coordinator Name Role Phone ORIANA KEENE Unavailable ORIANA KEENE Primary Care ORIANA KEENE Primary Attending ORIANA KEENE Admitting ALLERGIES AND ADVERSE REACTIONS ALLERGIES AND ADVERSE REACTIONS Code System Allergy Substance Adverse Reaction Date Reaction (Severity) Comment Status Reported By Updated By No Known Allergies [id number] on March 18, 2025 8:35:32 PM [facility] FAMILY HISTORY RELATION: Father Status: Cause of : Malignant tumor of lung Age at : Unknown SNOMED-CT Diagnosis Age At Onset Information not available RELATION: Mother Status: Cause of : Malignant tumor of lung Age at : Unknown SNOMED-CT Diagnosis Age At Onset 42173123 Chronic obstructive lung disease [id number] Depressive disorder [id number] Anxiety RELATION: Brother Status: LIVING SNOMED-CT Diagnosis Age At Onset [id number] Schizophrenia [id number] Malignant tumor of pancreas 549267692 Autistic disorder 62063763 Asperger's disorder [id number] Obsessive-compulsive disorder RELATION: Son Status: LIVING SNOMED-CT Diagnosis Age At Onset [id number] Alcohol dependence RELATION: Daughter Status: LIVING SNOMED-CT Diagnosis Age At Onset [id number] Heroin dependence RESULTS Patient: MARKELL Stephens Date of : 1960 LABORATORY RESULTS Information is not available LABORATORY NARRATIVE RESULTS Information is not available RADIOLOGY RESULTS ORDER 100: ÁNGEL SCREEN MAMMO W CAD BILAT (LOINC: 31870-8) ORDER DATE: April 11, 2025 5:15:00 PM [facility] PERFORMING LAB: [address] [id number] Final Result Date: April 11 5:46:[address] [place] [address] Name: SHARON GUILLAUME Exam Date: 04/11/2025 : 1960 Age 65 years Gender: F Physician: ORIANA KEENE Facility: [facility] Facility HSV: Outpatient Exam: ÁNGEL SCREEN MAMMO W CAD BILAT Exam: 3-D screening mammography including tomosynthesis and CAD (Computer Assisted Detection). Clinical indication: Asymptomatic screening exam Comparison: Exams to 2007 TECHNIQUE: Routine bilateral 2D screening mammogram with CC and MLO views obtained. 3-D tomosynthesis and Computer assisted detection were utilized for this exam. BREAST DENSITY: There are scattered areas of fibroglandular density FINDINGS: No suspicious mass, architectural distortion, or suspicious calcifications are present. IMPRESSION: No evidence of malignancy in either breast Recommendation: Annual screening mammography recommended in one year The results of this report will be communicated to the patient by letter in layman's terms. ACR BI-RADS: BI-RADS assessment category 1: Negative mammogram Mammography does not detect approximately 10-15% of breast cancers. A normal mammogram does not exclude breast cancer in a patient with palpable mass or abnormal findings on physical examination. These patients may need biopsies and when clinically indicated a biopsy should not be postponed because of a normal mammogram. If the patient has breast surgery or biopsy, FDA/SA Regulatory Guidelines mandate that this facility receive pathologic results for follow-up correlation. Electronically signed by: Malcolm French MD 04/11/2025 01:50 PM EDT Dictated By: Malcolm French Transcribed By: Transcribed On: 04/11/2025 1:46 PM Electronically signed by: Malcolm French 04/11/2025 Thank you for referring SHARON GUILLAUME to [facility]. Legally authenticated by COLIN COFFEY MD 2025-04-11 13:46:00 ORDER 200: CT CHEST LOW DOSE (LOINC: 78617-8) ORDER DATE: April 11, 2025 5:15:00 PM [facility] PERFORMING LAB: [address] [place] [id number] Final Result Date: April 11 5:53:[address] [place] [address] Name: SHARON GUILLAUME Exam Date: 04/11/2025 : 1960 Age 65 years Gender: F Physician: ORIANA KEENE Facility: [facility] Facility HSV: Outpatient Exam: CT CHEST LOW DOSE EXAM: CT CHEST WITHOUT IV CONTRAST HISTORY: screening. Personal history of nicotine dependence. Current smoker. 49 pack year history of tobacco. 65-year-old COMPARISON: 10/18/2023. TECHNIQUE: Helical CT of the chest was performed without the administration of intravenous contrast media. CT scans at this facility use dose modulation, iterative reconstruction and/or weight based dosing when appropriate to reduce radiation dose to as low as reasonably achievable. FINDINGS: Moderately advanced centrilobular emphysema has an upper lobe predominant distribution. A 4 mm juxtapleural nodule is located at the base of the right upper lobe along the minor fissure. A curvilinear consolidated opacity in the posterior medial right lower lobe measures approximately 5 cm in greatest diameter. A few calcified remnants from prior granulomatous disease are evident. There is no evidence of thoracic lymphadenopathy, pleural effusion or pericardial effusion. Heart size is normal. The thoracic aorta is normal caliber. The thoracic esophagus is unremarkable. No acute osseous abnormality. IMPRESSION: Curvilinear consolidated opacity in the posterior medial right lower lobe could represent an infectious or inflammatory process. Short-term follow-up imaging is recommended for reevaluation. Moderately advanced emphysema. Lung-RADS Category 0. Incomplete. Recommendation: A follow-up low-dose chest CT in one month is recommended for reevaluation. Electronically signed by: Lito Campoverde MD 04/13/2025 08:52 PM EDT Dictated By: Lito Campoverde Transcribed By: Transcribed On: 04/11/2025 1:53 PM Electronically signed by: Lito Campoverde 04/11/2025 Thank you for referring SHARON GUILLAUME to [facility]. Legally authenticated by HALLEY YATES MD 2025-04-11 13:53:00 PATHOLOGY NARRATIVE RESULTS Information is not available MICROBIOLOGY RESULTS No Micro Labs/Results Exist for Patient BLOOD ADMIN RESULTS Information is not available MEDICATIONS HOME MEDICATIONS Status RXNORM NDC Medication Dose Route Frequency Dates Comments Reported By Updated By Drug Treatment Unknown DISCHARGE MEDICATIONS Status RXNORM NDC Medication Dose Route Frequency Dates Comments Physician Updated By No Discharge Medication Info rmation Available INPATIENT MEDICATIONS Status RXNORM NDC Medication Dose Route Frequency Rat e Quantity Dates Comments Physician Updated By No Inpatient Medication Info rmation Available SOCIAL HISTORY SOCIAL HISTORY SNOMED-CT Social History Element Description Effective Dates Offered Cessation Comment UpdatedBy [id number] Historical Tobacco smoking status Current Every Day Smoker [id number] on March 18, 2025 6:55:26 PM [facility] [id number] Historical Tobacco smoking status Light Tobacco Smoker [id number] on November 18, 2024 5:22:07 PM [facility] [id number] Historical Tobacco smoking status Heavy Tobacco Smoker Yes 1 ppd [id number] on February 26, 2016 8:12:53 PM [facility] SOCIAL HISTORY - Gender Sex: Female SOCIAL HISTORY - Status : status i nformation is not available Intention in Next Year: intention information is not available SOCIAL HISTORY - Sexual Behavior Sexual Orientation Gender Identity SNOMED-CT Description SNO MED -CT Description Activity Level No of Partners Partner Type UpdatedBy Information is not available HEALTH CONCERNS Problems Concern Status Health Concern problem infor mation not available. Smoking Status Status Years Used Consumed packs p er day Health Concern smoking histo ry information not available. Family History Concern Status Health Concern family histor y information not available. ENCOUNTERS ENCOUNTER INFORMATION Reason for Visit F17.210 & Z12.31 Admission April 11, 2025 5:01:[address] [address] Discharge April 11, 2025 11:01:00 PM [facility] DIS CHARGED TO HOME OR SELF CARE ENCOUNTER DIAGNOSES Notes information is not gilbert ilable. Code System Diagnosis Onset Date Diagnosis information is not available. ABSTRACT DIAGNOSES Code System Diagnosis Updated By Z12.31 ICD10 ENCOUNTER FOR SC REENING MAMMOGRAM FOR MALIGNANT NEOPLASM OF BREAST [id number] on April 16, 2025 11:29:31 AM [facility] Z12.2 ICD10 ENCOUNTER FOR SC REENING FOR MALIGNANT NEOPLASM OF RESPIRATORY ORGANS [id number] on April 16, 2025 11:29:31 AM [facility] F17.210 ICD10 NICOTINE DEPENDE NCE, CIGARETTES, UNCOMPLICATED [id number] on April 16, 2025 11:29:31 AM [facility] Z12.31 ICD10 ENCOUNTER FOR SC REENING MAMMOGRAM FOR MALIGNANT NEOPLASM OF BREAST [id number] on April 16, 2025 11:29:31 AM [facility] Z12.2 ICD10 ENCOUNTER FOR SC REENING FOR MALIGNANT NEOPLASM OF RESPIRATORY ORGANS [id number] on April 16, 2025 11:29:31 AM [facility] R91.8 ICD10 OTHER NONSPECIFI C ABNORMAL FINDING OF LUNG FIELD [id number] on April 16, 2025 11:29:31 AM [facility] F17.210 ICD10 NICOTINE DEPENDE NCE, CIGARETTES, UNCOMPLICATED [id number] on April 16, 2025 11:29:31 AM [facility] Z88.0 ICD10 ALLERGY STATUS TO PENICILLIN [id number] on April 16, 2025 11:29:31 AM [facility] CARE TEAM Care Wedding Day Coordinator Role ORIANA KEENE Referring ORIANA KEENE Primary Care ORIANA KEENE Primary Attending ORIANA KEENE Admitting CARE TEAM CARE mechanical manufacturing engineer Role on Team Status Start Date End Date Update d By YECENIA ZAVALA PCP normal April 06, 2025 6:58:06 PM [facility] April 11, 2025 11:01:00 PM [facility] [id number] on April 06, 2025 6:58:06 PM [facility] YECENIA ZAVALA Referring normal April 06, 2025 6:58:06 PM [facility] April 11, 2025 11:01:00 PM [facility] [id number] on April 06, 2025 6:58:06 PM [facility] YECENIA ZAVALA Attending normal April 06, 2025 6:58:06 PM [facility] April 11, 2025 11:01:00 PM [facility] [id number] on April 06, 2025 6:58:06 PM [facility] YECENIA ZAVALA Admitting normal April 06, 2025 6:58:06 PM [facility] April 11, 2025 11:01:00 PM [facility] [id number] on April 06, 2025 6:58:06 PM [facility]
--- OUTSIDE RECORDS SUMMARY | 2025-05-29 08:02 | XMS_ITS | Clinical Summary ---
Author Organization Healthcare Address [address] [place] [address] Care Team Providers Care Blood Bank Order Control Clerk Name Role Phone Dante Santillan MD Primary Care Provider [phone] Allergies No known active allergies Medications albuterol 108 (90 Base) MCG/ACT inhaler INHALE TWO puffs EVERY FOUR HOURS NEEDED 7 Active atorvastatin (Lipitor) 80 MG tablet TAKE ONE TABLET BY MOUTH DAILY FOR cholesterol 3 Active Alphagan P 0.1 % ophthalmic solution instill 1 drop in each eye twice daily 3 Active cholecalciferol (Vitamin D3) 25 MCG (1000 UT) tablet Take 1 tablet (1,000 Units) by mouth 1 (one) time each day. 3 Active clopidogrel (Plavix) 75 MG tablet 1 Active furosemide (Lasix) 40 MG tablet TAKE ONE TABLET BY MOUTH DAILY for fluid 3 Active ipratropium-alb uterol (Duo-Neb) 0.5-2.5 mg/3 mL nebulizer solution USE ONE vial( THREE ML) via NEBULIZER FOUR TIMES DAILY DIRECTED 2 Active nitroglycerin (Nitrostat) 0.4 MG SL tablet DISSOLVE 1 TABLET UNDER THE TONGUE EVERY 5 MINUTES NEEDED FOR CHEST PAIN. DO NOT EXCEED A TOTAL OF 3 DOSES IN 15 MINUTES. 2 Active nitroglycerin (Nitrostat) 0.4 MG SL tablet DISSOLVE 1 TABLET UNDER THE TONGUE EVERY 5 MINUTES NEEDED FOR CHEST 8 Active spironolactone (Aldactone) 25 MG tablet TAKE ONE TABLET BY MOUTH DAILY FOR fluid 3 Active Umeclidinium-Vi lanterol (ANORO ELLIPTA IN) Inhale. Active nicotine (Nicoderm CQ) 21 MG/24HR patch Place 1 patch on the skin 1 (one) time each day at the same time over 24 hours. 30 patch 3 Active nicotine polacrilex (Commit) 4 MG lozenge Dissolve 1 lozenge (4 mg) in the mouth every 2 (two) hours if needed for smoking cessation. 100 lozenge 1 3 Active Pharbetol 325 MG tablet take 2 tablets(650 milligrams) by ORAL route every 6 hours As needed as needed 3 Active butalbital-acet aminophen-caffe ine (Fioricet) 50-300-40 MG capsule TAKE ONE CAPSULE BY MOUTH EVERY 8 HOURS NEEDED FOR HEADACHE 3 Active D3 High Potency 25 MCG (1000 UT) capsule Take 1 capsule (1,000 Units) by mouth 1 (one) time each day. 3 Active bisoprolol (Zebeta) 5 MG tablet Take 1 tablet (5 mg) by mouth 1 (one) time each day. Active ezetimibe (Zetia) 10 MG tablet Take 1 tablet (10 mg) by mouth 1 (one) time each day. 4 Active ARIPiprazole (Abilify) 5 MG tablet Take 1 tablet by mouth nightly. 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 [place] [address] Mucinous adenocarcinoma (CMS/HCC) Discharge Disposition: Home or Self Care 03/28/2025 Travel from Last 3 Months Family History Medical History Relation Name Comments Conversions - Other Father Lung cancer Father Conversions - Other Mother Lung cancer Mother Anesthesia problems Neg Hx Malig Hyperthermia Neg Hx Relation Name Status Comments Father Mother Social History Tobacco Use Types Packs/Day Years Used Date Smoking Tobacco: Every Day Cigarettes 1 49.5 Started: 1975 Smokeless Tobacco: Never Tobacco Cessation:Ready to Q uit: Not Asked; Counseling Given: Not Answered Alcohol Use Standard Drinks/Week Comments No 0 (1 standard drink = 0.6 oz pur e alcohol) PHQ-2 Answer Date Recorded Patient Health Questionnaire-2 Score 0 03/28/2025 PHQ-9 Answer Date Recorded Patient Health Questionnaire-9 Score 0 03/28/2025 PHQ-2A Answer Date Recorded Patient Health Questionnaire-2 Score 1 04/15/2023 Comments No Sex and Gender Information Value Date Recorded Sex Assigned at Not on file Legal Sex Female 7:28 PM EDT Gender Identity Not on file Sexual Orientation Not on file Last Filed Vital Signs Vital Sign Reading Time Taken Comments Blood Pressure 115/77 03/28/2025 1:35 PM EDT Pulse 92 03/28/2025 1:35 PM EDT Temperature 36.7 C (98 F) 12/27/2024 10:59 AM EST Respiratory Rate 18 03/28/2025 1:35 PM EDT Oxygen Saturation 91% 03/28/2025 1:35 PM EDT Inhaled Oxygen Concentration - - Weight 82.1 kg (181 lb) 03/28/2025 1:35 PM EDT Height 157.5 cm (5' 2 ) 06/12/2024 3:26 PM EDT Body Mass Index 33.1 06/12/2024 3:26 PM EDT Plan of Treatment Upcoming Encounters Date Type Department Care Team (Late st Contact Info) Description 10/03/2025 1:00 PM EST Appointment [facility] [id number] [place] [address] López Armenta MD [address] [place] [address] Health Maintenance Due Date Last Done Comments [facility]-Bone Density Scan 1960 [facility]-Hepatitis C Screening 1960 [facility]-Medicare Annual Wellness (AWV) 1960 [facility]-/Child/Adol SDOH Screenings 1960 [facility]- SDOH Screenings 1976 [facility]-Adult SDOH Screenings 1976 [facility]-DTaP,Tdap,and Td Vaccines (1 - Tdap) 1977 [facility]-Zoster Vaccines (1 of 2) 1977 CT Colonography 2003 Colonoscopy 2003 FIT-DNA 2003 FIT 2003 FOBT 2003 Sigmoidoscopy 2003 [facility]-Colorectal Cancer Screening 2003 [facility]-Breast Cancer Screening 2008 [facility]-RSV Vaccine: 60+ Years or (1 - Risk 60-74 years 1-dose series) 2018 OKB-VCZID-31 Vaccine (3 - Moderna risk series) 04/04/2021 03/07/2021, 02/04/2021 [facility]-Pneumococcal Vaccine: 50+ Years (3 of 3 - PCV) 02/03/2023 02/03/2022, 08/11/2011 [facility]-Influenza Vaccine (#1) 07/23/202509/06, 10/02/2022, 08/30/2020, Additional history exists [facility]-Depression Screening 03/28/2026 03/28/2025, 05/2025 [facility]-Obesity Intervention Completed 023, 05/07/2023, 01/08/2023 [facility]-Lung Cancer Screening Discontinued 2024, 12/15/2024, 06/12/2024, Additional history exists HPV Vaccines Aged Out No longer eligi ble based on patient's age to complete this topic [facility]-HIB Vaccines Aged Out No longer e ligible based on patient's age to complete this topic [facility]-Hepatitis A Vaccines Aged Out No longer eligible based on patient's age to complete this topic [facility]-IPV Vaccines Aged Out No longer e ligible based on patient's age to complete this topic [facility]-Rotavirus Vaccines Aged Out No lo nger eligible based on patient's age to complete this topic Procedures Procedure Name Priority Date/Time Associated Diagnosis Comments CT CHEST WO IV CONTRAST Routine 03/28/2025 12:12 PM EDT Mucinous adenocarcinoma (CMS/HCC) from Last 3 Months Results * CT Chest wo IV Contrast (03/28/2025 12:12 PM EDT) Anatomical Region Laterality Modality Chest Computed Tomogra phy Impressions 03/28/2025 1:15 PM EDT No evidence of thoracic progression. A previously noted left lower lobe nodule of concern is resolved. Other nodules and nodular scarring is stable. CRITICAL RESULT: No. COMMUNICATION: Per this written report. Drafted by Valentino Appiah MD on 03/28/2025 1:12 PM Final report signed by Valentino Appiah MD on 03/28/2025 1:15 PM Narrative 03/28/2025 1:15 PM EDT CLINICAL INDICATION: Oral cavity cancer, monitor TECHNIQUE: Multiple CT helical images were obtained from thoracic inlet through upper abdomen without administration of IV contrast. Total DLP (Dose-Length Product): 323.46 mGy.cm. Please note: The reported value represents the total of one or more individual components during the CT acquisition on this date and at this time, and as such, the same value may appear in more than one CT report depending on the interpreting/reporting physicians. COMPARISON: December 15, 2024 FINDINGS: Mediastinum and Pleura: No enlarging mediastinal or hilar adenopathy. Previously noted lymph nodes are stable. Coronary artery calcification. No pleural effusion. Lipomatous hypertrophy of interatrial septum incidentally noted. Lungs: Moderate emphysema. Right lower lobe nodularity along the base with some associated volume loss, similar to comparison. A few other scattered nodules are stable except for a previously noted left lower lobe nodule which is resolved. Upper Abdomen: Cholecystectomy. Musculoskeletal: No suspicious lytic or sclerotic lesion. Procedure Note Valentino Appiah MD - 03/28/2025 CLINICAL INDICATION: Oral cavity cancer, monitor TECHNIQUE: Multiple CT helical images were obtained from thoracic inlet through upperabdomen without administration of IV contrast. Total DLP (Dose-Length Product): 323.46 mGy.cm. Please note: The reportedvalue represents the total of one or more individual components during theCT acquisition on this date and at this time, and as such, the same valuemay appear in more than one CT report depending on theinterpreting/reporting physicians. COMPARISON: December 15, 2024 FINDINGS: Mediastinum and Pleura: No enlarging mediastinal or hilar adenopathy.Previously noted lymph nodes are stable. Coronary artery calcification. Nopleural effusion. Lipomatous hypertrophy of interatrial septumincidentally noted. Lungs: Moderate emphysema. Right lower lobe nodularity along the base withsome associated volume loss, similar to comparison. A few other scatterednodules are stable except for a previously noted left lower lobe nodulewhich is resolved. Upper Abdomen: Cholecystectomy. Musculoskeletal: No suspicious lytic or sclerotic lesion. IMPRESSION: No evidence of thoracic progression. A previously noted left lower lobe nodule of concern is resolved. Othernodules and nodular scarring is stable. CRITICAL RESULT: No. COMMUNICATION: Per this written report. Drafted by Valentino Appiah MD on 03/28/2025 1:12 PM Final report signed by Valentino Appiah MD on 03/28/2025 1:15 PM Teresa Gorman INTERMODAL DISPATCHER IMG CT PROCEDURES Final Resu lt from Last 3 Months Insurance [place] Member Subscriber Plan / Payer (Ef fective 2009-Present) Name:No Coelho Member ID:[id number] Relation to Subscriber:Self Name:CoelhoNo Subscriber ID:[id number] Payer ID:MEDICARE Group ID:Not on file Type:Medicare Address: [place] [id number] Care Teams Blood Bank Order Control Clerk Relationship Specialty Start Date End Date Dante Santillan MD [address] [place] [address] [place] [address] PCP - General 04/04/21
--- OUTSIDE RECORDS SUMMARY | 2025-05-29 08:02 | XMS_ITS ---
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 Past Treatment and Therapy Plans No past plan information found. Current Radiation Episodes * SBRT: Right Lower lobe of lungOverview* First Treatment Date Latest Treatment Date Treatment Site Technique Goal Episode Provider 06/21/2023 07/05/2023 Right Lower lobe of lung SBRT Curative * Linked Problems Cancer Treatment Courses* Course C1 06/21/2023 - 07/05/2023 Treatment Period Fraction Dose Fractions Total Dose Plans Planned RLL_PTV [A1A2] 06/21/2023 - 07/05/2023 1,000 cGy 5 / 5 5,000 cGy Reference Points Delivered RLL 06/21/2023 - 07/05/2023 5,000 cGy Lifetime Dose Tracking * Chemical Lifetime Dose Automatic Entry Manual Entr y Fluoro Time 5.607 minutes 5.607 minutes 0 minutes Air Kerma 358.25 mGy 358.25 mGy 0 mGy CTDIvol 78.1 mGy 78.1 mGy 0 mGy Radiation (DLP) 921 mGy-cm 921 mGy-cm 0 mGy-cm
--- OUTSIDE RECORDS SUMMARY | 2025-05-29 08:02 | XMS_ITS | Encounter Summary ---
Author Organization Healthcare Address [address] [place] [address] Care Team Providers Care Production Helper Name Role Phone Dante Santillan MD Primary Care Provider [phone] Encounter Details Date Type Department Care Team (Late st Contact Info) Description 04/29/2022 Orders Only External Location [address] [place] [phone] Provider, External Social History Tobacco Use Types Packs/Day Years Used Date Smoking Tobacco: Every Day Alcohol Use Standard Drinks/Week Comments No 0 (1 standard drink = 0.6 oz pur e alcohol) Comments Unknown Sex and Gender Information Value Date Recorded Sex Assigned at Not on file Legal Sex Female 7:28 PM EDT Gender Identity Not on file Sexual Orientation Not on file documented as of this encounter Plan of Treatment Upcoming Encounters Date Type Department Care Team (Late st Contact Info) Description 10/03/2025 1:00 PM EST Appointment [facility] [address] [facility] [id number] [place] [address] López Armenta MD [address] [facility] [address] [place] [address] documented as of this encounter Procedures Procedure Name Priority Date/Time Associated Diagnosis Comments XR CHEST 1 VIEW 04/29/2022 4:49 PM EDT documented in this encounter Results * XR Chest 1 View (04/29/2022 4:49 PM EDT) Anatomical Region Laterality Modality Chest Digital Radiogra phy 04/29/2022 4:49 PM EDT us External Provider IMG XR PROCEDURES Final Result documented in this encounter Visit Diagnoses Not on filedocumented in this encounter Care Teams Production Helper Relationship Specialty Start Date End Date Dante Santillan MD [address] [place] [address] PCP - General 04/04/21 documented as of this encounter
--- OUTSIDE RECORDS SUMMARY | 2025-05-29 08:02 | XMS_ITS | Encounter Summary ---
Author Organization Healthcare Address [address] [place] [address] Care Team Providers Care Drag Car Racer Name Role Phone Dante Santillan MD Primary Care Provider + [phone] Encounter Details Date Type Department Care Team (Late st Contact Info) Description 03/23/2023 Orders Only External Location [address] [place] [address] Provider, External Social History Tobacco Use Types Packs/Day Years Used Date Smoking Tobacco: Every Day Cigarettes 2 45 Smokeless Tobacco: Never Alcohol Use Standard Drinks/Week Comments No 0 [...] PM EST Appointment [facility] Radiation 800 [facility] [id number] [place] [address] López Armenta MD 800 [facility] [address] [place] [phone] documented as of this encounter Procedures Procedure Name Priority Date/Time Associated Diagnosis Comments CT CHEST WO IV CONTRAST 03/23/2023 9:45 AM EDT documented in this encounter Results * CT Chest wo IV Contrast (03/23/2023 9:45 AM EDT) Anatomical Region Laterality Modality Chest Computed Tomogra phy 03/23/2023 9:45 AM EDT us External Provider IMG CT PROCEDURES Final Result documented in this encounter Visit Diagnoses Not on filedocumented in this encounter Additional Health Concerns Assessment Noted Time A fall risk assessment has been complete d for the patient 01/08/2023 12:56 PM EST A Body Mass Index follow-up plan has been documented for the patient 01/11/2023 12:42 PM EST documented as of this encounter Care Teams Drag Car Racer Relationship Specialty Start Date End Date Dante Santillan MD [address] [place] [address] PCP - General 04/04/21 documented as of this encounter
--- OUTSIDE RECORDS SUMMARY | 2025-05-29 08:02 | XMS_ITS | Data Portability ---
Author Organization VINOD JASPER [facility] [place] Address [address] [facility] [address] [place] [address] Care Team Providers Care Audio Visual Aide Name Role Phone ANEESHLAUREEN RHODES Primary Care Provider Assessment Encounter Date Assessment Date Assessment LastModified [...] start new medication today She is taking Not available 02/17/2017 14:08:48 03/31/2017 03/31/2017 1. [...] up in 8 weeks, sooner if needed Not available 04/04/2017 13:24:17 06/01/2017 06/01/2017 1. [...] contrast 4. Follow up in 6 months [email or web address] Not available 06/18/2017 11:00:00 Plan of Treatment Reminders Order Date Submit Date Provider Last Modified By Organization Details Last Modified Time Details Appointments None recorded. Lab None recorded. Referral physical therapist referral 2016 017 [facility], [address], [place], [address], 7 16:35:38 Procedures None recorded. Surgeries None recorded. Imaging MR, angiogram, head, w/o contrast 2016 017 [email or web address] [facility], [address] [place] [address], [phone], 8 07:59:27 Medication Orders gabapentin 300 mg capsule 2016 017 [email or web address] [facility], [address] [place] [address], [id number], 7 15:42:39 Patient TargetsNo targets recorded. Patient Instructions Encounter Date Encounter Id Patient Instructions Last Modified By Organization Details Last Modified Time 02/17/2017 [id number] temporomandibula r disorder: care instructions Not available 02/18/2017 14:07:36 Reason for Referral Referring Physician: Sarina alvarez, Neurology, Encounter Date: 06/01/2017 Results Created Date Observation Date Name Description Value Unit Range Abnormal Flag Note LastModifiedBy Organization Detail LastModifiedTime 03/31/20 17 03/31/2017 MR brain w/wo/ cow wo contr ast [facility] [address] [place] [address] [place] [address] Patien t Name: SHARON reynoso : [birth year] 56 Patinorma t Orderi ng Provid er: SARINA SHAW [...] strati on of 15 cc Magnev ist ([facility] [id number]), there is no abnorm al enhanc ement in the brain. The management retail intern al caroti d and basila r flow-v oids are normal . There is mild mucosa l thicke darryl in the ethmoi d and maxill edelmira sinuse s. There is a small amount of fluid in the mastoi d air cells. MR ANGIOG [facility] WITHOU T CONTRA ST: There is enlarg ement of the medial aspect of the cavern ous portio n of the right management retail intern al caroti d artery which repres ents a possib le sessil e aneury sm. This measur es approx imatel y 3 mm. The visual ized left management retail intern al caroti d artery and basila r artery appear normal . There is no focal stenos is or aneury sm. The anteri or, middle , and multicraft operator ior cerebr al arteri es are normal in appear ance. There is no focal stenos is or aneury smal dilata tion. The [place] [facility] [place] appear s comple te. IMPRES DIMITRI: 1. There is mild diffus e cerebr al atroph y and mild white matter change s in the brain. 2. There is a possib le 3 mm sessil e aneury sm along the medial aspect of the cavern ous portio n of the right management retail intern al caroti d artery . Interp reted By: Dilshad fields MD Electr onical ly Signed By: Dilshad fields MD on 017 1:23 PM [email or web address] [facility] [address] [place], [address], 04/01/2017 08:18:44 Result Notes None recorded. Problems Name Problem SNOMED Code Status Onset Date Resolution Date Notes Provider Name and Address Organization Details Recorded Time Dysuria 79779878 Active 2015 From Automated Load;Provi jaen pierre: Lamar, Brandyn;St at[facility]: Active Not Available [facility] 6 11:26:18 Nocturnal enuresis 7696121 Active 2015 From Automated Load;Provi jean pierre: Lamar, Brandyn;St [facility]: Active Not Available [facility] 6 11:26:18 Urinary incontine nce 286379734 Active 2015 From Automated Load;Provi jean pierre: Lamar, Brandyn;St at[facility]: Active Not Available [facility] 6 11:26:18 Problem Notes None recorded. Procedures Surgical History Date Name Laterality Status Provider Name and Address Organization Details Recorded Time Cholecystectomy completed [facility] 02/17/2017 08:30:29 Imaging Results None recorded. Procedure Notes None recorded. Medical Equipment None [...] Body weight Body mass index (BMI) Systolic And Diastolic Provider Name and Address Organization Details Last Updated DateTime 02/17/2017 157.48 cm 45132.63 g 32.9 kg/m2 126/80 mm[Hg] [facility] 02/17/2017 08:34:20 Date Recorded Body height Body weight Body mass index (BMI) Systolic And Diastolic Provider Name and Address Organization Details Last Updated DateTime 03/31/2017 157.48 cm 51112.22 g 33.1 kg/m2 122/80 mm[Hg] [facility] 03/31/2017 16:06:20 Date Recorded Body height Body mass index (BMI) Body weight Systolic And Diastolic Provider Name and Address Organization Details Last Updated DateTime 06/01/2017 157.48 cm 30.7 kg/m2 80571.52 g 124/82 mm[Hg] Mei Rodas [facility] 06/01/2017 15:42:12 Social History Question Answer Notes LastModified by [employer] Details LastModified Time Tobacco Smoking Status Current Every Day Smoker Not Available [facility] 09/24/2020 03:47:32 What Is Your Level Of Caffeine Consumption? Moderate 2 CUPS DAILY [id number] Information not available 09/24/2020 Education 11 [email or web address] Information no t available 02/17/2017 Marital Status [email or web address] Informatio n not available 02/17/2017 How Much Tobacco Do You Smoke? 1 PPD [id number] Information not available 09/24/2020 Has Tobacco Cessation Counseling Been Provided? Yes [id number] Information not available 09/24/2020 On What Date Was Tobacco Cessation Counseling Provided? 09/17/2017 [id number] Information not available 09/24/2020 Sex: Unknown Functional Status Question Answer Note LastModified by [employer] Details LastModified Time What is your level of alcohol consumption? Occasional [id number] Information not available 09/24/2020 What is your occupation? DISABLED [id number] Information not available 09/24/2020 Mental Status None recorded. Family History Relationship Description Onset Age of this Age Resolved Age Notes LastModified by Organization Details LastModified Time Father Family history of malignant neoplasm [email or web address] Not available 2016 08:29:24 Mother Family history of malignant neoplasm [email or web address] Not available 2016 08:29:24 Medical History Condition Response Depression Y COPD Y Anxiety Disorder Y Headaches Y Reflux/GERD Y Gynecological HistoryNo gynecological history recorded. Obstetrics History GPAL:G 0 P 0 0 0 0 Immunizations Vaccine Type Date Status Note Provider Nam e and Address Organization Details Recorded Time Influenza, split virus, quadrivalent, preservative 6 completed Meilinn Rodas [facility] 02/17/2017 08:34:43 Past Encounters Encounter ID Performer Location Encounter Start Date Encounter Closed Date Diagnosis/Indication Diagnosis SNOMED-CT Code Diagnosis ICD10 Code Diagnosis Note [id number] SARINA SHAW MD [facility] [address] [place] [address] 02/17/2017 08:21:56 02/17/2017 09:33:23 Migraine 16277740 G43.909 Chronic he adache disorder 384532448 G44.89 Temporoman dibular joint disorder 74473652 M26.024 [id number] SARINA SHAW MD [facility]UROLOGY [facility] [address] [place] [address] 03/31/2017 15:41:26 03/31/2017 17:02:05 Chronic headache disorder 454142593 G44.89 Nonrupture d cerebral aneurysm 06075370 I67.1 [id number] SARINA SHAW MD [facility]UROLOGY [facility] [address] [place] [address] 06/01/2017 15:08:42 06/01/2017 16:05:26 Chronic tension-type headache 826209482 G44.229 Intracranial aneurysm 12 2793129 I67.1 Health Concerns Section Related Observation LastModified by Organization Detai ls LastModified Time None Recorded Concern Status LastModified by Organization Details LastModified Time None Recorded Advance Directives Directive None Recorded Payers Insurance Date Sequence Insurance Name Policy Number Policy Grayson Covered Member ID Grayson Member ID Guarantor Name 01/15/2018 2 [place] [facility] [place] - FFS/TRADITIO NAL Sharon Stephens Coelho [id number] Sharon Stephens Coelho 01/16/2018 1 [place] Sharon Stephens Coelho [id number] Sharon Stephens Coelho 01/22/2017 2 [place] - [place]FS/TRADITIO JULIO Stephens Coelho [id number] Sharon Stephens Coelho Notes Date Note Type Note Provider Name and Address Organization Details Recorded Time 02/17/2017 text/html Seen at request of Kimberly Ordoñez NP from [place]. cc: headaches Voices she started having headaches [...] Dr. Ayush Corona due to her glaucoma. MD Kelley [place], [address], [facility] 02/17/2017 14:09:57 03/31/2017 text/html This is [...] ASA, tylenol and ibuprofen SARINA SHAW MD [address] [place] [address], [phone], [facility] 04/04/2017 13:25:09 06/01/2017 text/html This is [...] all she can recall SARINA SHAW MD [facility] [place], [address], [facility] 06/18/2017 11:00:33 OBGyn Episode No OBEpisode recorded.
--- OUTSIDE RECORDS SUMMARY | 2025-05-29 08:02 | XMS_ITS | Encounter Summary ---
Author Organization Healthcare Address [address] [place] [id number] Care Team Providers Care Circus Laborer Name Role Phone Dante Santillan MD Primary Care Provider [phone] Encounter Details Date Type Department Care Team (Late Contact Info) Description 11/20/2021 Orders Only External Location [address] [place] [address] Dante Santillan MD [address] [place] [address] Social History Tobacco Use Types Packs/Day Years [...] PM EST Appointment [facility] Radiation [address] [facility]. [id number] [place] [address] López Armenta MD [address] [facility] [address] [place] [address] documented as of this encounter Procedures Procedure Name Priority Date/Time Associated Diagnosis Comments MR LUMBAR SPINE WO IV CONTRAST 11/20/2021 10:22 AM EST documented in this encounter Results * MR Lumbar Spine wo IV Contrast (11/20/2021 10:22 AM EST) Anatomical Region Laterality Modality L-spine Magnetic Resonan ce 11/20/2021 10:2 2 AM EST Dante Santillan MD IMG MRI PROCEDURES Final Res ult documented in this encounter Visit Diagnoses Not on filedocumented in this encounter Care Teams Circus Laborer Relationship Specialty Start Date End Date Dante Santillan MD [address] [place] [address] PCP - General 04/04/21 documented as of this encounter
--- OUTSIDE RECORDS SUMMARY | 2025-05-29 08:02 | XMS_ITS | Encounter Summary ---
Author Organization Healthcare Address [address] [place] [address] Care Team Providers Care Court Reporter Name Role Phone Dante Santillan MD Primary Care Provider [phone] Encounter Details Date Type Department Care Team (Late st Contact Info) Description 04/13/2022 Orders Only External Location [address] [place] [address] Provider, External Social History Tobacco Use Types [...] PM EST Appointment [facility] Radiation 800 [facility]. [id number] [place] [address] López Armenta MD 800 [facility] [address] [place] [address] documented as of this encounter Procedures Procedure Name Priority Date/Time Associated Diagnosis Comments CT CHEST WO IV CONTRAST 04/13/2022 3:49 PM EDT documented in this encounter Results * CT Chest wo IV Contrast (04/13/2022 3:49 PM EDT) Anatomical Region Laterality Modality Chest Computed Tomogra phy 04/13/2022 3:49 PM EDT us External Provider IMG CT PROCEDURES Final Result documented in this encounter Visit Diagnoses Not on filedocumented in this encounter Care Teams Court Reporter Relationship Specialty Start Date End Date Dante Santillan MD [address] [place] [address] PCP - General 04/04/21 documented as of this encounter
--- OUTSIDE RECORDS SUMMARY | 2025-05-29 08:02 | XMS_ITS | Encounter Summary ---
Author Organization Healthcare Address [address] [place] [address] Care Team Providers Care Com Writer Name Role Phone Dante Santillan MD Primary Care Provider + [phone] Encounter Details Date Type Department Care Team (Late st Contact Info) Description 10/13/2021 Orders Only External Location [address] [place] [address] Provider, External Social History Tobacco Use Types [...] PM EST Appointment [facility] Radiation 800 [facility]. [id number] [place] [address] López Armenta MD 800 [facility] [address] [place] [address] documented as of this encounter Procedures Procedure Name Priority Date/Time Associated Diagnosis Comments CT CHEST WO IV CONTRAST 10/13/2021 2:01 PM EST documented in this encounter Results * CT Chest wo IV Contrast (10/13/2021 2:01 PM EST) Anatomical Region Laterality Modality Chest Computed Tomogra phy 10/13/2021 2:01 PM EST us External Provider IMG CT PROCEDURES Final Result documented in this encounter Visit Diagnoses Not on filedocumented in this encounter Care Teams Com Writer Relationship Specialty Start Date End Date Dante Santillan MD [address] [place] [address] PCP - General 04/04/21 documented as of this encounter
--- OUTSIDE RECORDS SUMMARY | 2025-05-29 08:02 | XMS_ITS | Encounter Summary ---
Author Organization Healthcare Address [address] [place] [address] Care Team Providers Care Real Estate Professional Name Role Phone Dante Santillan MD Primary Care Provider + [phone] Encounter Details Date Type Department Care Team (Late st Contact Info) Description 08/11/2021 Orders Only External Location [address] [place] [address] Provider, External Social History Tobacco Use Types [...] PM EST Appointment [facility] Radiation 800 [facility]. [id number] [place] [address] López Armenta MD [address] [facility] [address] [place] [address] documented as of this encounter Procedures Procedure Name Priority Date/Time Associated Diagnosis Comments PET OUTSIDE IMAGES 08/11/2021 12:54 PM EDT documented in this encounter Results * PET OUTSIDE IMAGES (08/11/2021 12:54 PM EDT) Anatomical Region Laterality Modality Nuclear Medicine 08/11/2021 12:5 4 PM EDT External Provider IMG NM PROCEDURES Final Result documented in this encounter Visit Diagnoses Not on filedocumented in this encounter Care Teams Real Estate Professional Relationship Specialty Start Date End Date Dante Santillan MD [address] [place] [address] PCP - General 04/04/21 documented as of this encounter
[2025-05-29 08:50] VITALS: PULSE 60; PULSE 61
[2025-05-29] MEDS: ALBUTEROL 0.083% 2.5 MG/3 ML NEB IH (08:50)
== END 2025-05-29 23:59 | disposition home or self-care (01) ==
LOC: RT 07:53
PROVIDERS: PCP Family Medicine; Visit Provider Internal Medicine Pulmonary Disease
DX: J44.9 Chronic obstructive pulmonary disease, unspecified (principal); R94.2 Abnormal results of pulmonary function studies
CPT/HCPCS: 94060; 94618; 94640; 94726; 94729

== ENCOUNTER 2025-08-06 11:36 | Day surgery (SDC) | payer MEDICARE, MEDICAID, SELFPAY ==
[2025-08-01 14:36] VITALS: BMI 32.9
--- NOTE | 2025-08-01 16:28 | EXP.HP ---
History of Present Illness *Admission Date: 08/06/25 *Reason for visit:: Dysphagia/nausea/GERD and belching for EGD and blood in stool and colitis *History of present illness: Mrs. Coelho is a 65-year-old female who is here for diagnostic EGD and colonoscopy. The patient has had nausea, dysphagia, regurgitation, belching, heartburn and reflux for EGD and mixed IBS with bloating, gas, blood and mucus in the stool for colonoscopy. The examination is deemed medically necessary for diagnostic EGD and colonoscopy. The patient has been seen, interviewed and examined prior to the procedure by both myself and the anesthesia provider. [facility] Disclaimer: The information contained in this section may have been updated after the patient was seen, as this information can be updated by other users. Medical History Tobacco use Nausea Pyelonephritis Typical angina Primary lung cancer Tobacco abuse disorder Tobacco abuse counseling COPD mixed type Lung nodule COPD mixed type Angina pectoris Smoking greater than 30 pack years Lung nodule Sinusitis Nasal drainage Nasal congestion Encounter for postoperative care Benign parotid tumor Pleomorphic adenoma of parotid gland History of left heart catheterization (LHC) Depression Anxiety Migraine Osteoarthritis Osteoporosis History of gastroesophageal reflux (GERD) Claudication Dyspnea Severe obesity with body mass index (BMI) of 36.0 to 36.9 with serious comorbidity GI bleed Pulmonary HTN Atypical angina Fatigue Abdominal swelling Gastroenteritis SOB (shortness of breath) Pre-op evaluation HLD (hyperlipidemia) Claudication PAD (peripheral artery disease) COPD (chronic obstructive pulmonary disease) Tobacco abuse HHD (hypertensive heart disease) CAD (coronary artery disease) Surgical History History of colonoscopy History of hysterectomy History of cholecystectomy History of intravascular stent placement Family History Other Family history of diabetes mellitus type II Family history of hypertension Family history of myocardial infarction Lung cancer Social History Smoking Status: Current every day smoker tobacco type: cigarettes packs per day: 1 second hand exposure: Yes alcohol intake: never substance use type: denies use current occupational status: disabled Travel in the last 8 weeks?: None household members: none housing: house lives independently: Yes marital status: single education level: high school current occupational exposures/hazards: No caffeine: Yes special yarelis needs: No agree to transfusion: No do you feel safe at home: Yes victim of physical abuse: No victim of emotional abuse: No victim of sexual abuse: No would you like helpful sources: No Have you lived/traveled outside US in past 30 days?: No Contact w/someone who lives/traveled outside US past 30 days?: No Exposure to someone with infectious disease in past 14 days?: No Do you have a fever (greater than 100.4 F or 38 C)?: No Have you tested positive for COVID-19?: No Exposed to someone with COVID-19 in past 14 days?: No Do you have a sore throat?: No Do you have a cough?: No Do you have any weakness?: No Do you have any diarrhea?: No Are you experiencing any unusual bleeding?: No Do you have any muscle aches/pain?: No Do you have any abdominal pain?: No Are you experiencing loss of taste or smell?: No Other Medical History Have you received the Flu Vaccine for this season: Yes Have you received the Pneumonia Vaccine: Yes Review of Systems Review of Systems Review of systems (narrative): Negative *Cardiovascular Comments: Negative *Gastrointestinal Comments: Negative *Genitourinary Comments: Negative *Musculoskeletal Comments: Negative *Neurologic Comments: Negative Meds Home Medications and Allergies Home Medications ?Medication ?Instructions ?Recorded ?Confirmed ?Type brimonidine 0.1 % eye drops 0.1 drp ophthalmic (eye) DAILY 05/19/22 08/01/25 History (Alphagan P) glacoma albuterol sulfate 90 mcg/actuation 2 puff inhalation Q4HP PRN 12/27/23 08/01/25 Rx aerosol inhaler (ProAir HFA) shortness of breath or wheezing #6.7 grams cholecalciferol (vitamin D3) 25 See Rx Instructions .Route 12/27/23 08/01/25 Rx mcg (1,000 unit) capsule (Vitamin .COMPLEX #90 caps D3) clopidogrel 75 mg tablet See Rx Instructions .Route 12/27/23 08/01/25 Rx .COMPLEX Blood thinner #90 tabs furosemide 20 mg tablet (Lasix) 20 mg PO DAILY #90 tabs 12/27/23 08/01/25 Rx ipratropium 0.5 mg-albuterol 3 mg 3 ml inhalation QID PRN COPD #180 12/27/23 08/01/25 Rx (2.5 mg base)/3 mL nebulization mL soln unsnxxrigi-bhojrnlwkwjbp-nyrcpavm 1 cap PO Q8H PRN headache #30 caps 02/01/24 08/01/25 Rx 50 mg-300 mg-40 mg capsule (Fioricet) nitroglycerin 0.4 mg sublingual See Rx Instructions .Route 05/10/24 08/01/25 Rx tablet .COMPLEX #25 tabs bisoprolol fumarate 5 mg tablet 2.5 mg (1/2 x 5 mg) PO DAILY #90 09/04/24 08/01/25 Rx tabs spironolactone 25 mg tablet See Rx Instructions .Route 04/24/25 08/01/25 Rx .COMPLEX #90 tabs aripiprazole 5 mg tablet (Abilify) 5 mg PO DAILY 05/29/25 08/01/25 History atorvastatin 20 mg tablet 20 mg PO DAILY 05/29/25 08/01/25 History duloxetine 60 mg capsule,delayed 60 mg PO DAILY 05/29/25 08/01/25 History release famotidine 20 mg tablet 20 mg PO BID 05/29/25 08/01/25 History mirabegron 50 mg tablet,extended 50 mg PO DAILY 05/29/25 08/01/25 History release 24 hr (Myrbetriq) mirtazapine 15 mg tablet 15 mg PO HS 05/29/25 08/01/25 History umeclidinium 62.5 mcg-vilanterol 1 inh inhalation DAILY 90 days 05/29/25 08/01/25 Rx 25 mcg/actuation powdr for #180 ea inhalation (Anoro Ellipta) dicyclomine 20 mg tablet 20 mg PO TID PRN abdominal pain 06/22/25 08/01/25 Rx #180 tabs sodium,potassium,mag sulfates 17.5 See Rx Instructions PO .COMPLEX 07/24/25 08/01/25 Rx gram-3.13 gram-1.6 gram oral soln #354 mL (Suprep Bowel Prep Kit) ezetimibe 10 mg tablet (Zetia) See Rx Instructions .Route .COMPLEX 08/01/25 08/01/25 History nicotine See Rx Instructions transdermal 08/01/25 08/01/25 Rx 21mg/24hr-14mg/24hr-7mg/24hr daily .COMPLEX #56 patches transderm patches,sequentl ranolazine 500 mg tablet,extended 500 mg PO BID #60 tabs 08/01/25 08/01/25 Rx release,12 hr New Prescriptions to Start Prescriptions: Allergies Allergy/AdvReac Type Severity Reaction Status Date / Time No Known Allergies Allergy Verified 08/06/25 12:05 Exam Data for Last 24 hours I & O for Last 24 hours: Intake & Output 07/29/25 07/30/25 07/31/25 08/01/25 23:59 23:59 23:59 23:59 Weight 180 lb *Routine HEENT Exam Head: Present normocephalic Eye: Present EOMI and PERRL ENT: Present mucous membranes moist *Routine Neck Exam Neck: Present supple *Routine Respiratory Exam Respiratory: Present CTA bilaterally *Routine Cardiovascular Exam Cardiovascular: Present RRR *Routine Abdominal Exam Abdominal: Present soft and normoactive bowel sounds; Absent tenderness *Routine Rectal Exam Rectal:: deferred *Routine Genitalia Exam Genitalia:: deferred *Routine Extremities Exam Extremities: Absent cyanosis, clubbing or edema *Routine Skin Exam Skin: Present warm; Absent rash *Routine Neurological Exam Neurological: Present alert and oriented X3 Assessment and Plan *Assessment and plan (1) Nausea: Status: Acute Category: Medical Code(s): R11.0 - Nausea (2) Regurgitation of food: Status: Acute Category: Medical Code(s): R11.10 - Vomiting, unspecified (3) Dysphagia: Status: Acute Category: Medical Code(s): R13.10 - Dysphagia, unspecified (4) Dyspepsia: Status: Acute Category: Medical Code(s): R10.13 - Epigastric pain (5) Blood in stool: Status: Acute Category: Medical Code(s): K92.1 - Melena (6) Mucus in stool: Status: Acute Category: Medical Code(s): R19.5 - Other fecal abnormalities (7) Bloating: Status: Acute Category: Medical Code(s): R14.0 - Abdominal distension (gaseous) (8) Generalized abdominal pain: Status: Acute Category: Medical Code(s): R10.84 - Generalized abdominal pain Plan A/P: 1. Nausea, dyspepsia, bloating, belching, dysphagia and regurgitation of food for upper endoscopy and blood in stool with mucus in stool, bloating and generalized abdominal pain for colonoscopy is the preprocedural diagnosis. The patient will be anesthetized/sedated using MAC sedation. The patient has been seen and examined. Cardiac and lung assessment prior to the examination is stable. Proceed with planned diagnostic EGD and colonoscopy.
[2025-08-06] MEDS: LACTATED RINGERS 1000ML 1,000 ML 50 ML IV (12:05)
[2025-08-06 12:06] VITALS: BP 151/73; PULSE 85; RESP 20; TEMP 36.3; O2SAT 93
--- NOTE | 2025-08-06 12:32 | P.PNANES_ITS ---
[facility] Disclaimer: The information contained in this section may have been updated after the patient was seen, as this information can be updated by other users. Medical History Tobacco use Nausea Pyelonephritis Typical angina Primary lung cancer Tobacco abuse disorder Tobacco abuse counseling COPD mixed type Lung nodule COPD mixed type Angina pectoris Smoking greater than 30 pack years Lung nodule Sinusitis Nasal drainage Nasal congestion Encounter for postoperative care Benign parotid tumor Pleomorphic adenoma of parotid gland History of left heart catheterization (LHC) Depression Anxiety Migraine Osteoarthritis Osteoporosis History of gastroesophageal reflux (GERD) Claudication Dyspnea Severe obesity with body mass index (BMI) of 36.0 to 36.9 with serious comorbidity GI bleed Pulmonary HTN Atypical angina Fatigue Abdominal swelling Gastroenteritis SOB (shortness of breath) Pre-op evaluation HLD (hyperlipidemia) Claudication PAD (peripheral artery disease) COPD (chronic obstructive pulmonary disease) Tobacco abuse HHD (hypertensive heart disease) CAD (coronary artery disease) Surgical History History of colonoscopy History of hysterectomy History of cholecystectomy History of intravascular stent placement Family History Other Family history of diabetes mellitus type II Family history of hypertension Family history of myocardial infarction Lung cancer Social History Smoking Status: Current every day smoker tobacco type: cigarettes packs per day: 1 second hand exposure: Yes alcohol intake: never substance use type: denies use current occupational status: disabled Travel in the last 8 weeks?: None household members: none housing: house lives independently: Yes marital status: single education level: high school current occupational exposures/hazards: No caffeine: Yes special yarelis needs: No agree to transfusion: No do you feel safe at home: Yes victim of physical abuse: No victim of emotional abuse: No victim of sexual abuse: No would you like helpful sources: No Have you lived/traveled outside US in past 30 days?: No Contact w/someone who lives/traveled outside US past 30 days?: No Exposure to someone with infectious disease in past 14 days?: No Do you have a fever (greater than 100.4 F or 38 C)?: No Have you tested positive for COVID-19?: No Exposed to someone with COVID-19 in past 14 days?: No Do you have a sore throat?: No Do you have a cough?: No Do you have any weakness?: No Do you have any diarrhea?: No Are you experiencing any unusual bleeding?: No Do you have any muscle aches/pain?: No Do you have any abdominal pain?: No Are you experiencing loss of taste or smell?: No [facility] Anesthesia Checklist Patient Identification Patient Identification: Arm Band and Other: Structural Data Admitted From: Home Planned Operative Procedure/s: EGD/COLONSCOPY Consent for Planned Operative Procedure(s) Verified: Yes Verified Documents: Surgical Consent and History and Physical NPO Status Verified Time NPO: 00:00 Additional verifications Patient : No Anesthesia Reactions: No Hx Blood Transfusions: No Blood Transfusion Reaction: No Cephalosporin Allergy: No Previous Colonoscopy: Yes Airway Assessment Mallampati Score:: Class II C-Spine Mobility Assessed: Yes TMJ Mobility Assessed: Yes Dentition: Edentulous Neurological Assessment Level of Consciousness: Awake, Alert, Appropriate and Follows Commands Hx Seizures: No Numbness or tingling in extremities: No Anesthesia Plan ASA Class: III Anesthesia Type: MAC
--- NOTE | 2025-08-06 12:35 | HMH.PROCNOTE ---
[facility] Procedure Note Date: 08/06/25 Time: 12:54 Procedure Note:: Upper Endoscopy Procedure Report: Esophagogastroduodenoscopy with cold biopsies and TTS balloon dilation Endoscopost: Jeff Ferreira II, MD Referring Physician: Eduardo Sanchez MD Date of Procedure: August 06, 2025 Equipment: Olympus GIF-1100 standard upper endoscope Sedation: MAC sedation Indications: Mrs. Coelho is a 65-year-old female who is here for diagnostic panendoscopy. The patient does report right upper quadrant abdominal pain. She has struggled with nausea, early satiety, heartburn and reflux. She reports bloating and belching. She also has swallowing difficulty. She had an EGD with ca in January 2021 and had cricopharyngeal spasm. She has tried and failed Protonix, omeprazole and Reglan over the years. She has been on Pepcid twice daily. The patient previously had cholecystectomy. She did have an EGD in August 2023 (Alonzo Vigil MD) and had erosive gastritis and duodenitis. Weight loss. She reports no family history of gastric or esophageal cancer. Her brother had pancreatic cancer. Procedure: Prior to the procedure, a history and physical exam was performed, and patient's medications and allergies were reviewed. The risks, benefits and alternatives of the sedation and procedure were discussed with the patient. All questions were answered and informed consent was obtained. The patient was brought to the procedure room. Patient identification and proposed procedure were verified by the physician and the nurse. The patient was placed in a left lateral decubitus position and the scope was passed under direct vision. Throughout the procedure, the patient's blood pressure, pulse, and oxygen saturations were monitored continuously. The upper GI endoscopy was accomplished without difficulty. The patient tolerated the procedure well. Findings: The scope was passed directly into the upper esophagus and advanced to the third portion of the duodenum. The post bulbar duodenum, ampulla and duodenal bulb were normal with normal mucosa and conniventes. A cold biopsy was taken from the second portion of the duodenum for the disaccharidase assay. The scope was withdrawn through a normal duodenal bulb and pylorus into the stomach. There was moderate linear reactive gastropathy of the antrum with bile reflux. The body and fundus of the stomach were normal. Cold biopsies were taken from the antrum and lesser curvature. Upon retroflexion there was a small 1 to 2 cm hiatal hernia. The scope was then withdrawn into the esophagus. There was a serrated Z-line and biopsies taken at the GE junction. There was no evidence of reflux esophagitis or Carranza's. There were tertiary contractions and evidence of moderate esophageal dysmotility. The entire esophagus was dilated to 60 Moroccan/20 mm with a TTS hydrostatic balloon. There was some resistance at the cricopharyngeus. The remainder of the esophageal mucosa was normal. Impression: 1. Nonerosive GERD with moderate esophageal dysmotility and cricopharyngeal spasm status post dilation to 20 mm 2. Bile reflux with moderate linear reactive gastropathy Plan: I will follow-up the biopsies and disaccharidase assay. I will proceed with diagnostic colonoscopy. We will discuss dietary measures and treatment options today. The patient reports no melena or hematemesis. She has had no
--- NOTE | 2025-08-06 12:35 | HMH.PROCNOTE ---
[facility] Procedure Note Date: 08/06/25 Time: 13:01 Procedure Note:: Sigmoidoscopy procedure Report: Aborted colonoscopy Endoscopist: Jeff Ferreira II, MD Referring physician: Eduardo Sanchez MD Date of Procedure: August 06, 2025 Equipment: Olympus [id number] adult colonoscope Sedation: MAC sedation Indication: Mrs. Coelho is a 65-year-old female who is here for diagnostic colonoscopy. She has had longstanding mixed irritable bowel syndrome. She does report right upper quadrant abdominal pain, bloating, gassiness and alternating bowel function. She has had some persistent bright red blood with her bowel movements. She reports no family history of colon cancer. She does have some pericolonic adhesions identified at the time of her last colonoscopy. Her fecal calprotectin level was normal at 19. Her pancreatic fecal elastase was 312. Procedure: Prior to the procedure, a history and physical exam was performed, and patient's medications and allergies were reviewed. The risks, benefits and alternatives of the sedation and procedure were discussed with the patient. All questions were answered and informed consent was obtained. The patient was brought to the procedure room. Patient identification and proposed procedure were verified by the physician and the nurse. The patient was placed in a left lateral decubitus position and the scope was passed under direct vision. Throughout the procedure, the patient's blood pressure, pulse, and oxygen saturations were monitored continuously. The colonoscopy was accomplished without difficulty. The patient tolerated the procedure well. Findings: On digital rectal examination, there was normal rectal tone. There were external hemorrhoidal tags. The scope was then inserted through the anal canal into the rectum and advanced to 35 cm. There was abundant brown liquid stool with poor visualization of the colonic mucosa. The bowel preparation was inadequate and the procedure was aborted. Impression: 1. Inadequate bowel preparation?aborted colonoscopy Plan: I will recommend colonoscopy with 2-day extended bowel preparation.
[2025-08-06 13:05] VITALS: BP 95/59; PULSE 85; RESP 16; TEMP 36.6; O2SAT 96
[2025-08-06 13:15] VITALS: BP 114/72; PULSE 78; RESP 18; TEMP 36.6; O2SAT 96
[2025-08-06 13:25] VITALS: BP 116/78; BP 120/84; PULSE 76; PULSE 84; RESP 18; TEMP 36.6; O2SAT 98
[2025-08-09 14:30] LABS: Interpretation Notes (.); Lactase 1.81 (>/= 14.0); Maltase 73.07 (>/= 110.0); Palatinase 4.92 (>/= 8.5); Reference Notes (.); Sucrase 15.54 (>/= 25.0)
== END 2025-08-06 13:25 | disposition home or self-care (01) ==
PROVIDERS: PCP Family Medicine; Visit Provider Internal Medicine Gastroenterology
PROC: 0DJ08ZZ Inspection of Upper Intestinal Tract, Via Natural or Artificial Opening Endoscopic (ICD-10-PCS; CPT 45378; principal; 2025-08-06 13:30)
DX: K21.00 Gastro-esophageal reflux disease with esophagitis, without bleeding (principal); K31.A0 Gastric intestinal metaplasia, unspecified; K22.4 Dyskinesia of esophagus; K31.89 Other diseases of stomach and duodenum; J39.2 Other diseases of pharynx; K58.2 Mixed irritable bowel syndrome; K92.1 Melena; R14.0 Abdominal distension (gaseous); R10.84 Generalized abdominal pain; K59.89 Other specified functional intestinal disorders; Z80.0 Family history of malignant neoplasm of digestive organs; K64.4 Residual hemorrhoidal skin tags; F17.210 Nicotine dependence, cigarettes, uncomplicated; J44.89 Other specified chronic obstructive pulmonary disease; I11.9 Hypertensive heart disease without heart failure; I25.10 Atherosclerotic heart disease of native coronary artery without angina pectoris; I73.9 Peripheral vascular disease, unspecified; E78.5 Hyperlipidemia, unspecified; Z79.02 Long term (current) use of antithrombotics/antiplatelets; Z79.899 Other long term (current) drug therapy; Z85.118 Personal history of other malignant neoplasm of bronchus and lung
CPT/HCPCS: 43239; 43249; 45330; 82657; C1726; J2003; J2704; J7120